=== PATIENT | male | born 1960 | race Two or more races ===

== ENCOUNTER 2016-05-14 22:41 | Inpatient (IN) | payer OTHER ==
[~2016-05-14] VITALS: Ht 180.3 cm; Wt 68.1 kg
[~2016-05-14 22:41] MED LIST: CHLO25CA9 PO; FOLI-49 PO; LIPA1CAP6 PO; METO10TA96 PO; MULTI PO; MYL80 PO; PANT40TA3 PO; THIA100T10 PO; TRAM50TA2 PO
[2016-05-15] MEDS ORDERED: ONDANSETRON 4 MG INJ IV STA (01:10)
[2016-05-15] MEDS ORDERED: SOD CHLORIDE 0.9% 500 ML IV STA (01:10)
[2016-05-15] MEDS ORDERED: morphine 4 MG/ML VIAL IV STA (01:10)
--- NOTE | 2016-05-15 01:35 | RADRPT ---
PROCEDURE: XR Chest. CLINICAL INDICATION: Abdominal pain. TECHNIQUE: Single frontal view of the chest was obtained COMPARISON: 04/24/2016. FINDINGS: The heart and mediastinum are within normal limits. The lungs are clear. There is no pleural effusion or pneumothorax. IMPRESSION: No acute disease. RPTAT: [facility] Physician Marlene Date Time Electronically viewed and signed by Aditi Chaudhary Physician on 05/15/2016 01:35 RS/
[2016-05-15 01:58] LABS: URINE BILIRUBIN (Dip) 1+ (NEGATIVE); URINE BLOOD (Dip) NEGATIVE (NEGATIVE); URINE COLOR YELLOW (YELLOW); URINE GLUCOSE (Dip) NEGATIVE (NEGATIVE); URINE KETONES (Dip) 15 (NEGATIVE); URINE LEUKOCYTE ESTERASE (Dip) NEGATIVE (NEGATIVE); URINE NITRITE (Dip) NEGATIVE (NEGATIVE); URINE UROBILINOGEN (Dip) 0.2 E.U./dL (0.1-1.0)
--- NOTE | 2016-05-15 02:11 | RADRPT ---
PROCEDURE: CT Abdomen and Pelvis without contrast. CLINICAL INDICATION: Abdominal pain TECHNIQUE: CT scan of the abdomen and pelvis without contrast was performed on a multidetector hig h-resolution CT scanner. The patient was scanned without intravenous contrast. No oral contrast was administered. Coronal and sagittal reformatted images were obtained from the axial source images. Im ages were reviewed on a high-resolution PACS workstation. The total exam CTDI equals 6.4 mGy and th e total exam DLP equals 396.32 mGy-cm. One or more of the following dose reduction techniques were used: - Automated exposure control. - Adjustment of the mA and/or kV according to patient size. - Use of iterative reconstruction technique. COMPARISON: 02/23/2013 FINDINGS: Lungs: Linear atelectasis/fibrosis is seen at the lung bases. Small amount of pericardial fluid. Liver: No abnormality seen. Gallbladder: No abnormality seen. Spleen: No abnormality seen. Stomach: There is distension of the stomach and first and second portions of the duodenum with flui d and air. There may be obstruction of the second portion of the duodenum. This has appeared since the previous study. Pancreas: There is dilatation of the pancreatic duct in the body of the pancreas with the maximal di ameter approximately 8 mm increased compared to previous study. There could be a mass in the head o f the pancreas. Adrenals: No abnormality seen. Kidneys: There is a 4 mm nonobstructing calculus in the lower right kidney appearing since previous study. No abnormality is seen in the left kidney. Abdominal aorta: Minimal calcification is seen in the abdominal aorta. No abdominal aortic aneurysm is seen. Lymph nodes: No definite enlarged lymph nodes are seen. Small bowel: No dilated small bowel loops are seen. Colon: Diverticula in sigmoid, descending, transverse and ascending colon. There is no specific romy dence of acute diverticulitis seen. Appendix: No abnormality seen. Bladder: No definite abnormality of the empty bladder is seen. Pelvic organs: No abnormality seen Ascites: None seen. Osseous structures: Mild degenerative changes at sacroiliac joints and hips. IMPRESSION: Dilatation of the pancreatic duct in the body of the pancreas with the maximal diameter approximatel y 8 mm increased compared to previous study. There could be a mass in the head of the pancreas. Dis tension of the stomach and first and second portions of the duodenum with fluid and air. There may be obstruction of the second portion of the duodenum. This has appeared since the previous study. 4 mm nonobstructing calculus in lower right kidney. Colonic diverticulosis. No specific evidence of acute diverticulitis seen. CT abdomen and pelvis with intravenous and oral contrast may be useful fo r further evaluation. A call report was made to <<Referring Physicians Name>> on <<DATETIME>>. RPTAT: HJES .Sb Hargrove MD, MD Date Time Electronically viewed and signed by .Sb Hargrove MD, MD on 05/15/2016 02:11 .S/
[2016-05-15] MEDS ORDERED: HYDROmorphONE 1 MG/ML SYG IV STA (02:17)
[2016-05-15 02:18] LABS: ADD UMIC NO; ICTOTEST NEGATIVE (NEGATIVE); URINE TOTAL PROTEIN (Dip) NEGATIVE (NEGATIVE)
[2016-05-15 02:41] LABS: BASOPHILS % 0.7 % (0.0-2.0); EOSINOPHILS % 0.1 % (0.0-7.0); HEMATOCRIT 40.5 % (42.0-52.0); HEMOGLOBIN 13.7 g/dl (14.0-18.0); LYMPHOCYTES # 0.7 10^3/ul (0.8-2.9); MEAN CORPUSCULAR HEMOGLOBIN 30.4 pg (29.0-33.0); MEAN CORPUSCULAR HGB CONC 33.8 g/dl (32.0-37.0); MEAN CORPUSCULAR VOLUME 89.7 fl (82.0-101.0); MEAN PLATELET VOLUME 7.9 fl (7.4-10.4); MONOCYTE # 0.4 10^3/ul (0.3-0.9); MONOCYTES % 6.4 % (0.0-11.0); NEUTROPHIL # 5.5 10^3/ul (1.6-7.5); NEUTROPHILS % 81.8 % (39.0-77.0); PLATELET COUNT 356 10^3/UL (140-440); RED BLOOD COUNT 4.51 10^6/ul (4.70-6.10); UNCORRECTED WBC 6.7 10^3/ul (4.8-10.8); WHITE BLOOD COUNT 6.7 10^3/ul (4.8-10.8)
[2016-05-15 02:44] LABS: CONDITION 1; LH ANALYZER COMMENTS 1
[2016-05-15 02:50] LABS: ALBUMIN 4.6 g/dl (3.3-4.9); CHLORIDE 96 mmol/L (97-110)
[2016-05-15 02:51] LABS: POTASSIUM 4.2 mmol/L (3.5-5.1); SODIUM 143 mmol/L (135-144)
[2016-05-15 02:53] LABS: ALBUMIN/GLOBULIN RATIO 1.17; ALKALINE PHOSPHATASE 102 IU/L (42-121); ANION GAP 21 (8-16); ASPARTATE AMINO TRANSFERASE 24 IU/L (15-46); BILIRUBIN,INDIRECT 0.3 mg/dl (0-1.1); BILIRUBIN,TOTAL 0.3 mg/dl (0.2-1.3); BLOOD UREA NITROGEN 9 mg/dl (7-20); CARBON DIOXIDE 30 mmol/L (21-31); CREATININE 1.37 mg/dl (0.61-1.24); TOTAL PROTEIN 8.5 g/dl (6.1-8.1)
[2016-05-15 02:54] LABS: ALANINE AMINOTRANSFERASE 18 IU/L (13-69); CALCIUM 9.9 mg/dl (8.4-10.2); GLUCOSE 132 mg/dl (70-220)
[2016-05-15 03:10] LABS: TROPONIN-I < 0.010 ng/ml (0.00-0.12)
[2016-05-15] MEDS ORDERED: HYDROmorphONE 1 MG/ML SYG IV ONE (03:43)
--- NOTE | 2016-05-15 03:45 | ERA ---
ER Documentation Chief Complaint Date/Time DATE: 05/15/16 TIME: 03:44 Chief Complaint LUQ abd pain x 5 days,N/V HPI This is a 55-year-old male comes in with a left upper quadrant epigastric abdominal pain for the past 5 days. Associated nausea vomiting. Pain is mild to moderate intensity. Patient has history of pancreatitis. Patient is a chronic alcoholic. ROS All systems reviewed and are negative except as per history of present illness. Medications Home Meds Active Scripts Chlordiazepoxide* (Chlordiazepoxide*) 25 Mg Capsule, 25 MG PO TID, #15 CAP Prov:SKYE HALL MD 04/27/16 Multivitamins* (Theragran*) 1 Tab Tab, 1 TAB PO DAILY, #30 TAB Prov:SKYE HALL MD 04/27/16 Thiamine* (Thiamine*) 100 Mg Tablet, 100 MG PO DAILY, #30 TAB Prov:SKYE HALL MD 04/27/16 Folic Acid* (Folic Acid*) 1 Mg Tablet, 1 MG PO DAILY, #30 TAB Prov:SKYE HALL MD 04/27/16 Tramadol HCl (Tramadol HCl) 50 Mg Tablet, 50 MG PO Q6H Y for PAIN, #30 TAB Prov:SKYE HALL MD 04/27/16 Simethicone* (Mylicon*) 80 Mg Tab, 80 MG PO Q8 Y for DISTENSION/GAS/BLOATING, # 30 TAB Prov:SKYE HALL MD 04/27/16 Reported Medications [id number]-Glxclpnx-Czgrjai* (Creon DR* 24,000) 24,000 L-76,000-120,000 Unit Capsule., 1 CAP PO WITH MEALS, CAP 04/24/16 Metoclopramide Hcl* (Metoclopramide Hcl*) 10 Mg Tablet, 10 MG PO TID Y for NAUSEA AND/OR VOMITING, TAB 04/24/16 Pantoprazole* (Protonix*) 40 Mg Tablet.dr, 40 MG PO DAILY, TAB 03/12/15 Allergies Allergies: Coded Allergies: No Known Allergy (Unverified , 04/25/16) PMhx/Soc History of Surgery: No Anesthesia Reaction: No Hx Neurological Disorder: No Hx Respiratory Disorders: No Hx Cardiac Disorders: No Hx Psychiatric Problems: Yes (anxiety,anorexia,panic attack) Hx Miscellaneous Medical Probl: Yes (pancreatitis) Hx Alcohol Use: Yes Hx Substance Use: No Hx Tobacco Use: No Smoking Status: Never smoker Physical Exam Vitals Vital Signs Date Time Temp Pulse Resp B/P Pulse Ox O2 Delivery O2 Flow Rate FiO2 05/15/16 01:30 110 16 153/100 98 Room Air 05/14/16 22:48 98.7 116 20 130/98 99 Physical Exam Const: [] Head: Atraumatic Eyes: Normal Conjunctiva ENT: Normal External Ears, Nose and Mouth. Neck: Full range of motion..~ No meningismus. Resp: Clear to auscultation bilaterally Cardio: Regular rate and rhythm, no murmurs Abd: Soft, non tender, non distended. Normal bowel sounds Skin: No petechiae or rashes Back: No midline or flank tenderness Ext: No cyanosis, or edema Neur: Awake and alert Psych: Normal Mood and Affect Result Diagram: 05/15/1622505/15/16225 Results 24 hrs Laboratory Tests Test 05/15/16 01:17 05/15/16 02:26 Urine Bilirubin 1+ Urine Clarity CLEAR Urine Color YELLOW Urine Glucose NEGATIVE% Urine Hemoglobin NEGATIVE Urine Ictotest NEGATIVE Urine Ketones 15 Urine Leukocyte Esterase NEGATIVE Urine Nitrite NEGATIVE Urine Specific [place] 1.025 Urine Total Protein NEGATIVE Urine Urobilinogen 0.2 E.U./dL Urine pH 5.5 Alanine Aminotransferase (ALT/SGPT) 18IU/L Albumin 4.6g/dl Albumin/Globulin Ratio 1.17 Alkaline Phosphatase 102IU/L Anion Gap 21 Aspartate Amino Transf (AST/SGOT) 24IU/L Basophils # 0.010^3/ul Basophils % 0.7% Blood Morphology Comment Blood Urea Nitrogen 9mg/dl Calcium Level 9.9mg/dl Carbon Dioxide Level 30mmol/L Chloride Level 96mmol/L Creatinine 1.37mg/dl Direct Bilirubin 0.00mg/dl Eosinophils # 0.010^3/ul Eosinophils % 0.1% Globulin 3.90g/dl Glucose Level 132mg/dl Hematocrit 40.5% Hemoglobin 13.7g/dl Indirect Bilirubin 0.3mg/dl Lipase 126U/L Lymphocytes # 0.710^3/ul Lymphocytes % 11.0% Mean Corpuscular Hemoglobin 30.4pg Mean Corpuscular Hemoglobin Concent 33.8g/dl Mean Corpuscular Volume 89.7fl Mean Platelet Volume 7.9fl Monocytes # 0.410^3/ul Monocytes % 6.4% Neutrophils # 5.510^3/ul Neutrophils % 81.8% Nucleated Red Blood Cells # 0.010^3/ul Nucleated Red Blood Cells % 0.0/100WBC Platelet Count 24166^3/UL Potassium Level 4.2mmol/L Red Blood Count 4.5110^6/ul Red Cell Distribution Width 16.0% Sodium Level 143mmol/L Total Bilirubin 0.3mg/dl Total Protein 8.5g/dl Troponin I < 0.010ng/ml White Blood Count 6.710^3/ul Current Medications Medications (Trade) Dose Ordered Sig/Broderick Route PRN Reason Start Time Stop Time Status Last Admin Dose Admin Sodium Chloride (NS) 500 ml @ 500 mls/hr Q1H STAT IV 05/15/16 01:10 05/15/16 02:09 DC 05/15/16 01:57 Morphine Sulfate (morphine) 4 mg ONCE STAT IV 05/15/16 01:10 05/15/16 01:11 DC Ondansetron HCl (Zofran Inj) 4 mg ONCE STAT IV 05/15/16 01:10 05/15/16 01:11 DC 05/15/16 01:57 Hydromorphone HCl (Dilaudid) 1 mg ONCE STAT IV 05/15/16 02:17 05/15/16 02:18 DC 05/15/16 02:24 Hydromorphone HCl (Dilaudid) 1 mg ONCE ONCE IV 05/15/16 03:43 05/15/16 03:44 Procedures/MDM Medical decision-makin-year-old gentleman with acute on chronic pancreatitis. He also has a suspicious mass suspicious for pancreatic head mass. Patient will be admitted to Dr. Gary ballard as he has admitted the patient previously. Departure Diagnosis: Primary Impression: Pancreatitis Qualified Code: K85.20 - Alcohol-induced acute pancreatitis without infection or necrosis Additional Impression: Abdominal pain Qualified Code: R10.13 - Epigastric pain Condition: Serious RACHEL ANGELES May 15, 2016 03:45
[2016-05-15 05:10] VITALS: Ht 180.3 cm; Wt 68.1 kg
[2016-05-15] MEDS ORDERED: LORA-444 PO (05:23)
[2016-05-15] MEDS: ONDANSETRON 4 MG INJ IV PRN ×2 (06:51→15:27)
[2016-05-15] MEDS: HYDROmorphONE 1 MG/ML SYG IV PRN ×6 (06:52→23:00)
[2016-05-15 08:08] VITALS: BP 148/89; RESP 16
[2016-05-15] MEDS: PANTOPRAZOLE 40 MG INJ IV SCH (09:14)
[2016-05-15] MEDS: D5W-0.45 NACL + KCL 20 MEQ 1,000 ML IV SCH ×3 (09:14→18:45)
[2016-05-15] MEDS: LORAZEPAM 2 MG INJ IV PRN ×2 (11:36→18:45)
--- NOTE | 2016-05-15 13:46 | HP ---
DATE OF ADMISSION: 05/15/2016 CHIEF COMPLAINT: Epigastric pain for last 5 days, nausea and vomiting. HISTORY OF PRESENT ILLNESS: The patient is a 55-year-old gentleman. The patient with a past medic al history of pancreatitis, alcohol dependence, anxiety, anorexia and panic attacks. The patient de veloped epigastric abdominal pain that radiates to the left and right lower abdominal quadrants and in the back associated with nausea and vomiting. The patient stated that his last alcoholic beverag e drink was during New Year. Patient stated he tries to quit drinking "as much as he can." The prashanth howard presented to the emergency room. The patient underwent a CT of the abdomen and pelvis. The ash torres was diagnosed with pancreatitis. The patient was given Zofran and Dilaudid in the emergency room and admitted for further evaluation and management. PAST MEDICAL HISTORY: Per HPI. PAST SURGICAL HISTORY: Patient denies having any surgeries. SOCIAL HISTORY: Patient denies any tobacco use, denies any illicit drugs. The patient takes alcohol occasionally, usually drinks wine. FAMILY HISTORY: Noncontributory. ALLERGIES: NO KNOWN ALLERGIES. MEDICATIONS ON ADMISSION: 1. Creon DR. 2. Folic acid. 3. Ativan. 4. Multivitamins. 5. Protonix. 6. Tramadol. 7. Thiamin. REVIEW OF SYSTEMS: A 12-point review of systems is negative unless what mentioned in the HPI. PHYSICAL EXAMINATION: GENERAL: Well-developed, well-nourished male in no acute distress. VITAL SIGNS: Temperature is 98.7, pulse is 91, blood pressure 148/89, respiratory rate 16, oxygen s aturation 96% on room air. HEENT: Head is atraumatic, normocephalic. Pupils equal, round and reactive to light and accommodat ion. Oral mucosa is pink and moist. NECK: Supple, no cervical lymphadenopathy, no thyromegaly. CHEST: Lungs clear to auscultation bilaterally. No rhonchi, wheezes, rales noted. CARDIOVASCULAR: Normal S1, S2. No murmurs, gallops, clicks noted. ABDOMEN: Round, soft, nondistended. Patient has epigastric tenderness. Bowel sounds present. The re is no guarding. EXTREMITIES: No edema, clubbing or cyanosis. Pulses equal bilaterally 2+. SKIN: There is no rash, petechiae noted. NEUROLOGIC: Patient is alert and oriented x4. No focal deficits noted. LABORATORY DATA: On admission CBC: White blood cells 6.7, hemoglobin 13.7, hematocrit 40.5, platel ets 356. Chemistry: Sodium is 143, potassium 4.2, chloride 96, carbon dioxide 30, anion gap 21, BU N is 9, creatinine 1.37, glucose 132. AST is 24, ALT 18, alkaline phosphatase is 102. Troponin les s than 0.01. Lipase is 126. IMAGING: CT of the abdomen and pelvis with dilatation of the pancreatic duct in the body of the samuel creas with maximal diameter approximately 8 mm, increased compared to previous study. ASSESSMENT AND PLAN: 1. Acute alcoholic-induced acute pancreatitis. 2. Possible mass in the head of the pancreas. 3. Alcohol dependence. I started the patient on IV fluids with folic acid, thiamine and multivitami ns. Continue Zofran p.r.n. for nausea and Dilaudid p.r.n. for pain, keep patient n.p.o., will ask Lucina Scott to see patient in gastroenterology consultation. Continue Protonix for peptic ulcer disea se prophylaxis and sequential compression device for deep venous thrombosis prophylaxis. Further re commendations based on clinical course. Plan of care discussed with Dr. Tinsley. Dictated By: LEON TERRY BACKSIDE GRINDER for SNEHA TINSLEY MD SR/NTS Conf#: [id number] DID#: [id number]
[2016-05-15] MEDS: DIPHENHYDRAMINE 50 MG INJ IV PRN ×2 (16:22→23:27)
--- NOTE | 2016-05-15 18:44 | CONS ---
DATE OF ADMISSION: 05/15/2016 DATE OF CONSULTATION: 05/15/2016 TYPE OF CONSULTATION: Gastroenterology. Dear Dr. Lee: Thank you for asking me to see Mr. Wilson in GI consultation. HISTORY OF PRESENT ILLNESS: The patient, as you know, is admitted to the hospital because of the hi story of abdominal pain and periodic vomiting. He is 55 years of age of [place] origin. He develope d epigastric pain radiating to the left upper quadrant and to the back, periodic vomiting, as he has vomited 6 times in the past 1 month. He is known to have chronic pancreatitis; however, since this admission, he was found to have a significantly dilated stomach, possible mass in the head of the p ancreas. There is evidence of a dilated pancreatic duct. He has a history of alcoholism. He was i n and out of the hospital several times. Two months ago he was in [facility] where he had an endoscopy. He does not know the details. He said that cancer was ruled out. He has no history of vomiting blood or passing blood from the rectum. MEDICATIONS: Prior to the admission include: 1. Creon. 2. Folic acid. 3. Ativan. 4. Multivitamins. 5. Protonix. 6. Tramadol. 7. Thiamine. PAST SURGICAL HISTORY: Unremarkable. PHYSICAL EXAMINATION: GENERAL: The patient is a 55-year-old [place] gentleman who at this time is alert, is well built. VITAL SIGNS: Afebrile, blood pressure 148/89. CARDIOVASCULAR: Normal heart sounds. RESPIRATORY: Normal breath sounds. ABDOMEN: Showed a mildly distended abdomen, tympanic to percussion noted in the upper abdomen. LABORATORY WORKUP: Potassium 4.2, BUN 9, creatinine 1.37, bilirubin 0.3, AST 24, ALT 18, alkaline p hosphatase 102, lipase is 126. WBC 6700, hemoglobin 13.7, platelets 356,000. CAT scan of the abdom en shows evidence of dilatation of the dilated stomach and first and second part of the duodenum als o dilated, ____ obstruction of the second portion of the duodenum, dilatation of the pancreatic fabrice t is reported up to 8 mm. Mass in the head of the pancreas is considered. Please review the chart for more information. CLINICAL IMPRESSION: The patient presenting with history of abdominal pain and vomiting. He has ev idence of a gastric outlet obstruction. Rule out pancreatitis causing the gastric outlet obstruction near the second part of the duodenum; n eoplastic process in the head of the pancreas cannot be ruled out. Bilirubin and liver functions ar e normal. Hence, mass in the head of the pancreas is probably less likely. He has a dilated pancre atic duct, probably based on chronic pancreatitis. Mass and malignancy of the pancreatic head shoul d be ruled out. PLAN: At this time, recommend nasogastric suction, CA 19-9, and surgical consultation is pending, w ill be happy to follow this patient along with you. Once again, doctor, thank you for this consultation. Dictated By: CHARLEY GUILLEN MD NC/NTS Conf#: [id number] DID#: [id number] CC: SNEHA LEE MD;*EndCC*
[2016-05-15 19:59] VITALS: BP 141/88; RESP 16
[2016-05-16] MEDS: LORAZEPAM 2 MG INJ IV PRN ×4 (01:09→21:24)
[2016-05-16] MEDS: HYDROmorphONE 1 MG/ML SYG IV PRN ×4 (02:01→11:49)
[2016-05-16] MEDS: D5W-0.45 NACL + KCL 20 MEQ 1,000 ML IV SCH ×5 (02:05→22:00)
[2016-05-16] MEDS: PANTOPRAZOLE 40 MG INJ IV SCH (05:00)
[2016-05-16 05:56] LABS: BASOPHILS % 0.3 % (0.0-2.0); EOSINOPHILS # 0.2 10^3/ul (0.0-0.5); EOSINOPHILS % 3.5 % (0.0-7.0); HEMATOCRIT 38.7 % (42.0-52.0); HEMOGLOBIN 13.1 g/dl (14.0-18.0); LYMPHOCYTES # 1.8 10^3/ul (0.8-2.9); MEAN CORPUSCULAR HEMOGLOBIN 30.6 pg (29.0-33.0); MEAN CORPUSCULAR HGB CONC 33.9 g/dl (32.0-37.0); MEAN CORPUSCULAR VOLUME 90.3 fl (82.0-101.0); MEAN PLATELET VOLUME 8.3 fl (7.4-10.4); MONOCYTE # 0.7 10^3/ul (0.3-0.9); MONOCYTES % 11.9 % (0.0-11.0); NEUTROPHIL # 2.8 10^3/ul (1.6-7.5); NEUTROPHILS % 51.3 % (39.0-77.0); PLATELET COUNT 295 10^3/UL (140-440); RED BLOOD COUNT 4.29 10^6/ul (4.70-6.10); RED CELL DISTRIBUTION WIDTH 15.8 % (11.5-14.5); UNCORRECTED WBC 5.6 10^3/ul (4.8-10.8); WHITE BLOOD COUNT 5.6 10^3/ul (4.8-10.8)
[2016-05-16 06:07] LABS: CONDITION 1; LH ANALYZER COMMENTS 1
[2016-05-16 06:37] LABS: ALBUMIN 4.1 g/dl (3.3-4.9)
[2016-05-16 06:38] LABS: POTASSIUM 4.4 mmol/L (3.5-5.1)
[2016-05-16 06:40] LABS: ALBUMIN/GLOBULIN RATIO 1.13; BILIRUBIN,INDIRECT 0.4 mg/dl (0-1.1); BILIRUBIN,TOTAL 0.4 mg/dl (0.2-1.3); CREATININE 0.91 mg/dl (0.61-1.24); TOTAL PROTEIN 7.7 g/dl (6.1-8.1)
[2016-05-16 06:41] LABS: CALCIUM 9.1 mg/dl (8.4-10.2)
[2016-05-16] MEDS: DIPHENHYDRAMINE 50 MG INJ IV PRN ×2 (07:36→21:32)
[2016-05-16 07:51] VITALS: BP 112/81; RESP 16
[2016-05-16 07:57] VITALS: BP 108/55; RESP 16
[2016-05-16 07:59] VITALS: BP 112/81; RESP 16
[2016-05-16] MEDS: MULTIVITAMINS 10 ML, THIAMINE 100 MG, FOLIC ACID 1 MG in SOD CHLORIDE 0.9% 1,000 ML IVPB SCH (09:35)
[2016-05-16] MEDS ORDERED: HYDROmorphONE 1 MG/ML SYG IV STA (13:25)
[2016-05-16] MEDS: HYDROmorphONE 2 MG/ML SYG IV PRN ×3 (16:58→23:19)
--- NOTE | 2016-05-16 17:32 | CONS ---
Date/Time of Note Date/Time of Note DATE: 05/16/16 TIME: 17:31 Assessment/Plan Assessment/Plan Additional Assessment/Plan [facility] INITIAL INPATIENT CONSULTATION NOTE ASSESSMENT AND PLAN: A very-pleasant 55-year-old gentleman with significant history of pancreatitis due to alcohol abuse, and a few other medical issues ( see below) who was admitted initially to [facility] 05/15/2016 with evidence of chronic pancreatitis with complications of gastric outlet obstruction and pancreatic duct obstruction. Chance of malignancy is still low but should be investigated. Patient should have an upper endoscopy and may need endoscopic ultrasound evaluation to complete his workup. I do not see an indication for acute surgical intervention, but the patient should stay within care of his primary care physicians, gastroenterology as well as B surgery both in-house and as an outpatient until we have more definitive alleviation of his symptoms. At times, surgical intervention is indicated in the form of bypass operations or even resections. Infrequently, total pancreatectomy with auto islet transplantation would be considered, but I do not think that the patient would need such aggressive intervention at this time. I expect all of this to the patient and answered all his questions to the best my ability. Patient appeared to understand and agreed with the plans. With above assessment, I've recommended the followin. Consider upper endoscopy 2. Possible arrangement for outpatient endoscopic ultrasound 3. Treat pain 4. Continue NG decompression 5. Further plans after endoscopy Thank you very much for having me involved in the care of this very pleasant gentleman and I'm certain his wonderful family. I will continue to follow him along with you closely and will be available to answer any questions at area code [phone]. TOTAL VISIT TIME: 45 minutes of which more than half was spent in [id number] discussion with the patient, as well as coordination of care between multiple physicians and providers. Disclaimer: Inadvertent spelling and grammatical errors are likely due to EHR/ dictation software use and do not reflect on the quality of delivered patient care. Also, please note that the electronic time recorded on this node does not necessarily reflect the actual time of the visit. PLACE OF SERVICE: [facility], sixth floor DATE OF CONSULTATION: 05/16/2016 HISTORY OF PRESENT ILLNESS: The patient is a very pleasant 55-year-old gentleman with significant history of pancreatitis due to alcohol abuse, and a few other medical issues (see below) who was admitted initially to [facility] 05/15/2016 with abdominal pain that radiated to left and right lower abdominal quadrants and to the back, associated with nausea and vomiting. These are similar to his previous episodes of abdominal pain associated with pancreatitis. Note that the amylase and lipase levels were normal. CT scan shows dilated pancreatic duct as well as a mass process in the head of the pancreas and evidence for gastric outlet obstruction. Rest of the labs are unremarkable. I was kindly asked consult. Patient had no other major complaints during my visit. Patient does not report any hematemesis or blood in the stool or urine. Last bowel movement was yesterday as well as flatus. No reported chronic issues with constipation or diarrhea. No changes in hearing or vision, difficulty with breathing or swallowing, prior cardiopulmonary disease new skin rashes, joint pain, musculoskeletal disease, neurologic, psychiatric, or new psychologic problems although he has anxiety. Patient described the pain as a diffuse mid and upper epigastric pain with radiation to the back, between 8 to 10 out of 10 in severity and mostly dull in character. At my visit, the patient did not have any significant pain complaints. PAST MEDICAL HISTORY 1. EtOH pancreatitis with several visits to healthcare centers per year 2. Chronic back pain 3. Anxiety neck slight 4. Panic attacks 5. Gastritis PAST SURGICAL HISTORY 1. Previous endoscopies ALLERGIES: NO KNOWN DRUG ALLERGIES MEDICATIONS 1. Stephanie CULVER 2. Folic acid. 3. Ativan. 4. Multivitamins. 5. Protonix. 6. Tramadol. 7. Thiamin. SOCIAL HISTORY: The patient lives by himself. - Tob; occasional ETOH with previous heavy use 20 years ago; - IVDU FAMILY HISTORY: There are no significant medical, surgical or oncologic issues in the family as reported by the patient or reflected in the chart. REVIEW OF SYSTEMS: Patient takes codeine based pain medications once or twice a week. He does not have a pain specialist managing his pain as an outpatient. No other pertinent positives or pertinent negatives in a complete 14 point review of systems. PHYSICAL EXAMINATION GENERAL: The patient appears to be a very pleasant gentleman of non- ( [place]) descent lying in bed, appearing stated age, and otherwise in no acute distress. BMI: 20.9 VITAL SIGNS: AVSS (please also see below) HEENT: Normocephalic and atraumatic. Extraocular muscles and hearing are grossly intact bilaterally and symmetrically. Sclerae are nonicteric. Oral cavity is clear; oral mucosa appear to be pink and moist. Dentition: fair. NECK: Supple. There is no lymphadenopathy or JVD. There is no submental, submandibular or supraclavicular lymphadenopathy. CHEST: Rises symmetrically with each breath; patient is breathing comfortably. There are no audible wheezes, rales or rhonchi on the gross exam. HEART: Pulse is regular and palpable on the right wrist. Capillary refill is normal. Carotid pulses are palpable bilaterally and symmetrically in the neck. EXTREMITIES: Lower extremities contain no pitting edema around the ankles bilaterally and symmetrically. ABDOMEN: Abdomen is soft, nontender and nondistended. No evidence of ascites, organomegaly, caput medusae, engorged subcutaneous veins, or other abnormalities. There are no peritoneal signs or guarding. SKIN: Appears to be pink and feels warm to touch. NEUROLOGIC: Awake, alert, and follows commands appropriately. LABORATORY DATA: See below IMAGING: See electronic chart. Please note that I've personally reviewed all pertinent available images and I agree in general with their overall reported findings. Consultation Date/Type/Reason Admit Date/Time May 15, 2016 at 03:34 Social History Smoking Status: Never smoker Exam/Review of Systems Vital Signs Vitals Vital Signs Date Time Temp Pulse Resp B/P Pulse Ox O2 Delivery O2 Flow Rate FiO2 05/16/16 07:59 98.1 83 16 112/81 96 05/15/16 04:00 Room Air Intake and Output 05/15/16 05/15/16 05/16/16 15:00 23:00 07:00 Intake Total 1000 ml 1250 ml Output Total 1600 ml 1200 ml Balance -600 ml 50 ml Results Result Diagram: 05/16/16 0518 05/16/16 0528 Results 24 hrs Laboratory Tests Test 05/16/16 05:18 05/16/16 05:28 Basophils # 0.0 Basophils % 0.3 Blood Morphology Comment Eosinophils # 0.2 Eosinophils % 3.5 Hematocrit 38.7 L Hemoglobin 13.1 L Lymphocytes # 1.8 Lymphocytes % 33.0 Mean Corpuscular Hemoglobin 30.6 Mean Corpuscular Hemoglobin Concent 33.9 Mean Corpuscular Volume 90.3 Mean Platelet Volume 8.3 Monocytes # 0.7 Monocytes % 11.9 H Neutrophils # 2.8 Neutrophils % 51.3 Nucleated Red Blood Cells # 0.0 Nucleated Red Blood Cells % 0.0 Platelet Count 295 Red Blood Count 4.29 L Red Cell Distribution Width 15.8 H White Blood Count 5.6 Alanine Aminotransferase (ALT/SGPT) 23 Albumin 4.1 Albumin/Globulin Ratio 1.13 Alkaline Phosphatase 76 Amylase Level 121 Anion Gap 17 H Aspartate Amino Transf (AST/SGOT) 30 Blood Urea Nitrogen 7 Calcium Level 9.1 Carbon Dioxide Level 32 H Chloride Level 100 Creatinine 0.91 Direct Bilirubin 0.00 Globulin 3.60 H Glucose Level 112 Indirect Bilirubin 0.4 Lipase 126 Potassium Level 4.4 Sodium Level 145 H Total Bilirubin 0.4 Total Protein 7.7 Medications Medications Current Medications Influenza Virus Vaccine 0.5 ml 0.5 ml ONCE ONCE IM* ; Start 05/17/16 at 09:00; Stop 05/17/16 at 09:01 Potassium Chloride/Dextrose/ Sod Cl (D5-1/2ns + KCl 20 Meq) 1,000 ml @ 125 mls/ hr Q8H IV Last administered on 05/16/16 02:05; Admin Dose 125 MLS/HR; Start at 06:00 Pantoprazole (Protonix Iv) 40 mg DAILY@06 IV Last administered on 05/16/16 05: 00; Admin Dose 40 MG; Start 05/15/16 at 06:00 Lorazepam (Ativan) 1 mg Q6H PRN IV ANXIETY Last administered on 05/16/16 15:21 ; Admin Dose 1 MG; Start 05/15/16 at 06:00 Ondansetron HCl (Zofran Inj) 4 mg Q6H PRN IV NAUSEA AND/OR VOMITING Last administered on 05/15/16 15:27; Admin Dose 4 MG; Start 05/15/16 at 06:00 Diphenhydramine HCl 25 mg 25 mg Q6H PRN IV NAUSEA AND/OR VOMITING Last administered on 05/16/16 07:36; Admin Dose 25 MG; Start 05/15/16 at 13:00 Multivitamins/ Thiamine HCl/ Folic Acid/Sodium Chloride (Mvi-12 Adult/ Vitamin B1/Folic Acid/NS) 1,011.2 ml @ 125 mls/ hr DAILY@09 IVPB Last administered on 05/16/16 09:35; Admin Dose 125 MLS/HR; Start 05/16/16 at 09:00 Hydromorphone HCl (Dilaudid) 1.5 mg Q3H PRN IV PAIN Last administered on 16:58; Admin Dose 1.5 MG; Start 05/16/16 at 15:00 MAGDALENO KANG M.D. May 16, 2016 17:31
[2016-05-16 19:00] VITALS: BP 105/72; RESP 18
--- NOTE | 2016-05-16 20:54 | CONS ---
DATE OF ADMISSION: 05/15/2016 DATE OF CONSULTATION: HISTORY OF PRESENT ILLNESS: The patient, since I saw him last night, he had a nasogastric tube put in. It drained 3.5 liters of gastric fluid. He says he is feeling better, no more vomiting, abdomi nal pain is much better. PHYSICAL EXAMINATION: GENERAL: The patient is a 55-year-old [place] gentleman who at this time appears to be alert. VITAL SIGNS: Afebrile, pulse is 90, blood pressure 110/80. CARDIOVASCULAR: Normal heart sounds. RESPIRATORY: Normal breath sounds. ABDOMEN: Showed less distention, less tenderness. LABORATORY WORKUP: WBC 5600, hemoglobin 13.1, BUN 7, creatinine is 0.9, amylase 121, lipase is 126. CA 19-9 is 3.2. CLINICAL IMPRESSION: The patient seems to have improved after the gastric decompression. The reaso n for gastric outlet obstruction is not clear, rule out ulcer disease, rule out pancreatic phlegmon causing obstruction. PLAN: At this time, will proceed with upper endoscopy. Also, recommend Reglan. Dictated By: CHARLEY NARAYANAN/EDIL Conf#: [id number] DID#: [id number] CC: SNEHA TINSLEY MD;*EndCC*
--- NOTE | 2016-05-16 21:50 | PN ---
Date/Time of Note Date/Time of Note DATE: 05/16/16 TIME: 21:45 Assessment/Plan VTE Prophylaxis VTE Prophylaxis Intervention: SCD's Lines/Catheters IV Catheter Type (from Nrsg): Peripheral IV Assessment/Plan Assessment/Plan 1. Acute alcoholic-induced acute pancreatitis. - per GI - npo - NGT to low intermittent suction- draining green fluid. - IVF - Zofran p.r.n. for nausea -plan for endoscopy tomorrow 2. Possible mass in the head of the pancreas. - pain management- dilaudid 1.5 mg q 3 hrs 3. Alcohol dependence. IV fluids with folic acid, thiamine and multivitamins. Continue Protonix for peptic ulcer disease prophylaxis and sequential compression device for deep venous thrombosis prophylaxis. Further recommendations based on clinical course. Plan of care discussed with Dr. Lee. Exam/Review of Systems Vital Signs Vitals Vital Signs Date Time Temp Pulse Resp B/P Pulse Ox O2 Delivery O2 Flow Rate FiO2 05/16/16 19:00 97.8 87 18 105/72 96 05/15/16 04:00 Room Air Intake and Output 05/15/16 05/15/16 05/16/16 15:00 23:00 07:00 Intake Total 1000 ml 1250 ml Output Total 1600 ml 1200 ml Balance -600 ml 50 ml Exam Constitutional: alert, oriented, other Psych: nl mood/affect Eyes: EOMI, PERRL, nl sclera ENMT: nl external ears & nose Neck: non-tender Respiratory: clear to auscultation Cardiovascular: nl pulses Gastrointestinal: soft, tender Musculoskeletal: nl extremities to inspection Extremities: normal pulses Neurological: nl mental status, nl speech Skin: nl turgor Lymph: nontender Results Result Diagram: 05/16/1618 05/16/16 0528 Results 24 hrs Laboratory Tests Test 05/16/16 05:18 05/16/16 05:28 Basophils # 0.0 Basophils % 0.3 Blood Morphology Comment Eosinophils # 0.2 Eosinophils % 3.5 Hematocrit 38.7 L Hemoglobin 13.1 L Lymphocytes # 1.8 Lymphocytes % 33.0 Mean Corpuscular Hemoglobin 30.6 Mean Corpuscular Hemoglobin Concent 33.9 Mean Corpuscular Volume 90.3 Mean Platelet Volume 8.3 Monocytes # 0.7 Monocytes % 11.9 H Neutrophils # 2.8 Neutrophils % 51.3 Nucleated Red Blood Cells # 0.0 Nucleated Red Blood Cells % 0.0 Platelet Count 295 Red Blood Count 4.29 L Red Cell Distribution Width 15.8 H White Blood Count 5.6 Alanine Aminotransferase (ALT/SGPT) 23 Albumin 4.1 Albumin/Globulin Ratio 1.13 Alkaline Phosphatase 76 Amylase Level 121 Anion Gap 17 H Aspartate Amino Transf (AST/SGOT) 30 Blood Urea Nitrogen 7 Calcium Level 9.1 Carbon Dioxide Level 32 H Chloride Level 100 Creatinine 0.91 Direct Bilirubin 0.00 Globulin 3.60 H Glucose Level 112 Indirect Bilirubin 0.4 Lipase 126 Potassium Level 4.4 Sodium Level 145 H Total Bilirubin 0.4 Total Protein 7.7 Medications Medications Current Medications Influenza Virus Vaccine 0.5 ml 0.5 ml ONCE ONCE IM* ; Start 05/17/16 at 09:00; Stop 05/17/16 at 09:01 Potassium Chloride/Dextrose/ Sod Cl (D5-1/2ns + KCl 20 Meq) 1,000 ml @ 125 mls/ hr Q8H IV Last administered on 05/16/16 19:58; Admin Dose 125 MLS/HR; Start at 06:00 Pantoprazole (Protonix Iv) 40 mg DAILY@06 IV Last administered on 05/16/16 05: 00; Admin Dose 40 MG; Start 05/15/16 at 06:00 Lorazepam (Ativan) 1 mg Q6H PRN IV ANXIETY Last administered on 05/16/16 21:24 ; Admin Dose 1 MG; Start 05/15/16 at 06:00 Ondansetron HCl (Zofran Inj) 4 mg Q6H PRN IV NAUSEA AND/OR VOMITING Last administered on 05/15/16 15:27; Admin Dose 4 MG; Start 05/15/16 at 06:00 Diphenhydramine HCl 25 mg 25 mg Q6H PRN IV NAUSEA AND/OR VOMITING Last administered on 05/16/16 21:32; Admin Dose 25 MG; Start 05/15/16 at 13:00 Multivitamins/ Thiamine HCl/ Folic Acid/Sodium Chloride (Mvi-12 Adult/ Vitamin B1/Folic Acid/NS) 1,011.2 ml @ 125 mls/ hr DAILY@09 IVPB Last administered on 05/16/16 09:35; Admin Dose 125 MLS/HR; Start 05/16/16 at 09:00 Hydromorphone HCl (Dilaudid) 1.5 mg Q3H PRN IV PAIN Last administered on t 19:59; Admin Dose 1.5 MG; Start 05/16/16 at 15:00 Metoclopramide HCl (Reglan) 10 mg Q6 IV ; Start 05/17/16 at 00:00 SO VILLARREAL May 16, 2016 21:50
[2016-05-16] MEDS: METOCLOPRAMIDE 10 MG INJ IV SCH (23:19)
--- NOTE | 2016-05-17 00:24 | RADRPT ---
PROCEDURE: XR abdomen series. CLINICAL INDICATION: obstructed stomach TECHNIQUE: AP supine and upright abdomen x-ray. AP chest x-ray COMPARISON: CT abdomen 05/15/2016 FINDINGS: There is moderate stool through the colon. Dilated small bowel loops are not identified. There is a nasogastric tube projecting in the gastric body. There is no evidence of obstruction. There are n o abnormal calcifications overlying the urinary tracts. There is no gross abnormal soft tissue mass. The osseus structures are unremarkable. The cardiomediastinal silhouette appears within normal limits. Lung putnam appear clear. Pulmonary vasculature appears within normal limits. IMPRESSION: 1. Moderate stool through the colon. 2. No evidence for small bowel obstruction. Fluid-filled distension of the stomach seen on CT may b e decreased on the current x-ray, although not well evaluated. 3. Nasogastric tube in place. RPTAT: HBST .Yohannes Bruce MD, MD Date Time Electronically viewed and signed by .Yohannes Bruce MD, on 05/17/2016 00:23 .T/
[2016-05-17] MEDS: HYDROmorphONE 2 MG/ML SYG IV PRN ×7 (02:06→22:05)
[2016-05-17] MEDS: LORAZEPAM 2 MG INJ IV PRN ×3 (03:52→17:55)
[2016-05-17] MEDS: DIPHENHYDRAMINE 50 MG INJ IV PRN ×2 (03:56→21:01)
[2016-05-17] MEDS: METOCLOPRAMIDE 10 MG INJ IV SCH ×3 (05:03→17:51)
[2016-05-17] MEDS: PANTOPRAZOLE 40 MG INJ IV SCH ×2 (05:03→20:24)
[2016-05-17] MEDS: D5W-0.45 NACL + KCL 20 MEQ 1,000 ML IV SCH ×3 (06:00→20:23)
[2016-05-17 06:04] LABS: BASOPHILS % 0.5 % (0.0-2.0); EOSINOPHILS # 0.3 10^3/ul (0.0-0.5); EOSINOPHILS % 4.9 % (0.0-7.0); HEMATOCRIT 35.1 % (42.0-52.0); LYMPHOCYTES # 1.7 10^3/ul (0.8-2.9); LYMPHOCYTES % 27.9 % (15.0-51.0); MEAN CORPUSCULAR HGB CONC 34.3 g/dl (32.0-37.0); MEAN CORPUSCULAR VOLUME 90.2 fl (82.0-101.0); MEAN PLATELET VOLUME 8.2 fl (7.4-10.4); MONOCYTE # 0.7 10^3/ul (0.3-0.9); MONOCYTES % 10.9 % (0.0-11.0); NEUTROPHIL # 3.4 10^3/ul (1.6-7.5); NEUTROPHILS % 55.8 % (39.0-77.0); PLATELET COUNT 249 10^3/UL (140-440); RED BLOOD COUNT 3.89 10^6/ul (4.70-6.10); RED CELL DISTRIBUTION WIDTH 15.6 % (11.5-14.5); UNCORRECTED WBC 6.1 10^3/ul (4.8-10.8); WHITE BLOOD COUNT 6.1 10^3/ul (4.8-10.8)
[2016-05-17 06:21] LABS: CONDITION 1; LH ANALYZER COMMENTS 1
[2016-05-17 06:35] LABS: POTASSIUM 4.4 mmol/L (3.5-5.1)
[2016-05-17 06:38] LABS: CREATININE 0.89 mg/dl (0.61-1.24)
[2016-05-17 08:00] VITALS: BP 155/97; RESP 18
[2016-05-17] MEDS: MULTIVITAMINS 10 ML, THIAMINE 100 MG, FOLIC ACID 1 MG in SOD CHLORIDE 0.9% 1,000 ML IVPB SCH (08:01)
[2016-05-17] MEDS ORDERED: INFLUENZA VIRUS VACCINE 0.5 ML SYG IM* ONE (09:00)
[2016-05-17] MEDS ORDERED: LIDOCAINE 2% (SDV) 5 ML INJ ONE (10:29)
[2016-05-17] MEDS ORDERED: PROPOFOL 20 ML ONE (10:29)
[2016-05-17] MEDS ORDERED: FENTAnyl 50 MCG/ML VIAL ONE (10:42)
[2016-05-17 10:43] VITALS: BP 134/81; PULSE 96; RESP 18
[2016-05-17 11:32] VITALS: BP 107/58; PULSE 92; RESP 20
[2016-05-17 11:37] VITALS: BP 111/55; PULSE 90; RESP 10
[2016-05-17 11:55] VITALS: BP 131/77; PULSE 92; RESP 14
[2016-05-17] MEDS ORDERED: BARIUM SULFATE 135 ML (E-Z HD) PO ONE (13:47)
--- NOTE | 2016-05-17 15:25 | PN ---
Date/Time of Note Date/Time of Note DATE: 05/17/16 TIME: 15:24 Assessment/Plan Lines/Catheters IV C[facility]ter Type (from [facility] Peripheral IV Orr in Place (from [facility]): No Assessment/Plan Assessment/Plan [facility] In[facility] Progress Note Date of Service: 05/17/2016 Today's Assessment & Plan: Overall stable. Endoscopic evaluation demonstrated possible issues in the second or third portion of duodenum. Patient currently undergoing upper GI and was not available in the room for exam. I've recommended addition of contrast- enhanced MRI of the abdomen and pelvis along with MRCP for further delineation. If needed, the patient should also be scheduled for an outpatient endoscopic ultrasound evaluation of the head of his pancreas. Further surgical plans after above. With above assessment, I've recommended the following for today: 1. Continue current cares 2. Evaluation of upper GI 3. MRI of abdomen with IV contrast (pancreas protocol) along with MRCP 4. Set up for outpatient endoscopic ultrasound 5. Multidisciplinary tumor board presentation 6. I'll follow along with you Thank you again for your great care of this very pleasant gentleman and I'm certain his wonderful family. If there are any questions, please feel free to call me at [phone]. TOTAL VISIT TIME: 20 minutes of which more than half was spent in [id number] discussion with the patient as well as coordination of care between multiple physicians and providers. Disclaimer: Inadvertent spelling and grammatical errors are likely due to EHR/ dictation software use and do not reflect on the quality of delivered patient care. Also, please note that the electronic time recorded on this node does not necessarily reflect the actual time of the visit. Updated Clinical Summary: Very pleasant 55-year-old gentleman with significant history of pancreatitis due to alcohol abuse, and a few other medical issues (see below) who was admitted initially to [facility] 05/15/2016 with evidence of chronic pancreatitis with complications of gastric outlet obstruction and pancreatic duct obstruction. Past and present comorbidity list: 1. EtOH pancreatitis with several visits to healthcare centers per year 2. Chronic back pain 3. Anxiety neck slight 4. Panic attacks 5. Gastritis Subjective: No major reported events or complaints; patient not in room (? Upper GI) Objective: Vitals: See below I's & O's: See below Exam: Patient not in room (? Upper GI) Labs: See below Exam/Review of Systems Vital Signs Vitals Vital Signs Date Time Temp Pulse Resp B/P Pulse Ox O2 Delivery O2 Flow Rate FiO2 05/17/16 11:55 92 14 131/77 97 Room Air 05/17/16 11:32 97.8 Intake and Output 05/16/16 05/16/16 05/17/16 15:00 23:00 07:00 Intake Total 1511.2 ml 800 ml Output Total 600 ml 1000 ml 100 ml Balance -600 ml 511.2 ml 700 ml Results Result Diagram: 05/17/16 0520 05/17/16 0520 MAGDALENO KANG M.D. May 17, 2016 15:25
--- NOTE | 2016-05-17 16:42 | RADRPT ---
PROCEDURE: Upper GI series. CLINICAL INDICATION: Gastric outlet obstruction. Vomiting. TECHNIQUE: Barium was administered orally and several spot and overhead radiographs were obtained. COMPARISON: No prior study is available for comparison. FINDINGS: There is no aspiration. Esophageal motility is normal. There is no esophageal mass, ulcer, or stricture. There is no gastroesophageal reflux. There is a large amount of undigested food or debris within the stomach. The gastric emptying is di lated. The first and second part of the duodenum are dilated and contain a large amount of undigest ed food or debris. There is severe stenosis of the third part of the duodenum with only minimal bar ium extending past this point. IMPRESSION: 1. Large amount of undigested food or debris within the stomach and first and second parts of the d uodenum. 2. Delayed gastric emptying. 3. 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 RPTAT: QQ .Baltazar Covington MD, MD Date Time Electronically viewed and signed by .Baltazar Covington MD, on 05/17/2016 16:42 .R/
[2016-05-17] MEDS ORDERED: PANTOPRAZOLE 40 MG INJ IV SCH (18:00)
--- NOTE | 2016-05-17 18:24 | PN ---
Date/Time of Note Date/Time of Note DATE: 05/17/16 TIME: 18:18 Assessment/Plan VTE Prophylaxis VTE Prophylaxis Intervention: SCD's Lines/Catheters IV Catheter Type (from [facility]): Saline Lock Urinary Cath still in place: No Assessment/Plan Chief Complaint/Hosp Course ASSESSMENT AND PLAN: 1. Gastric outlet obstruction and duodenum per EGD. Dr. Wagoner is following in gastroenterology consultation. Continue n.p.o. Continue Zofran p.r.n. for nausea and Dilaudid p.r.n. for pain. Continue IV fluids. 2. Possible mass in the head of the pancreas. Dr. Sanchez is following in general surgery consultation, pending contrast MRI and MRCP. 3. Possible alcoholic-induced acute pancreatitis. 4. Alcohol dependence. room worker consult. Continue Protonix for peptic ulcer disease prophylaxis and sequential compression device for deep venous thrombosis prophylaxis. Further recommendations based on clinical course. Plan of care discussed with Dr. Lee. Problems: Subjective 24 Hr Interval Summary Free Text/Dictation Patient was in GI lab undergoing upper endoscopy during the rounds, patient is n.p.o. no nausea vomiting no fever reported per MARIE Bryson. Exam/Review of Systems Vital Signs Vitals Vital Signs Date Time Temp Pulse Resp B/P Pulse Ox O2 Delivery O2 Flow Rate FiO2 05/17/16 11:55 92 14 131/77 97 Room Air 05/17/16 11:32 97.8 Intake and Output 05/16/16 05/16/16 05/17/16 15:00 23:00 07:00 Intake Total 1511.2 ml 800 ml Output Total 600 ml 1000 ml 100 ml Balance -600 ml 511.2 ml 700 ml Results Result Diagram: 05/17/16 0520 05/17/16 0520 Results 24 hrs Laboratory Tests Test 05/17/16 05:20 Anion Gap 15 Basophils # 0.0 Basophils % 0.5 Blood Morphology Comment Blood Urea Nitrogen 7 Calcium Level 9.0 Carbon Dioxide Level 30 Chloride Level 101 Creatinine 0.89 Eosinophils # 0.3 Eosinophils % 4.9 Glucose Level 96 Hematocrit 35.1 L Hemoglobin 12.0 L Lymphocytes # 1.7 Lymphocytes % 27.9 Mean Corpuscular Hemoglobin 31.0 Mean Corpuscular Hemoglobin Concent 34.3 Mean Corpuscular Volume 90.2 Mean Platelet Volume 8.2 Monocytes # 0.7 Monocytes % 10.9 Neutrophils # 3.4 Neutrophils % 55.8 Nucleated Red Blood Cells # 0.0 Nucleated Red Blood Cells % 0.0 Platelet Count 249 Potassium Level 4.4 Red Blood Count 3.89 L Red Cell Distribution Width 15.6 H Sodium Level 142 White Blood Count 6.1 Medications Medications Current Medications Potassium Chloride/Dextrose/ Sod Cl (D5-1/2ns + KCl 20 Meq) 1,000 ml @ 125 mls/ hr Q8H IV Last administered on 05/16/16 19:58; Admin Dose 125 MLS/HR; Start at 06:00 Lorazepam (Ativan) 1 mg Q6H PRN IV ANXIETY Last administered on 05/17/16 17:55 ; Admin Dose 1 MG; Start 05/15/16 at 06:00 Ondansetron HCl (Zofran Inj) 4 mg Q6H PRN IV NAUSEA AND/OR VOMITING Last administered on 05/15/16 15:27; Admin Dose 4 MG; Start 05/15/16 at 06:00 Diphenhydramine HCl 25 mg 25 mg Q6H PRN IV NAUSEA AND/OR VOMITING Last administered on 05/17/16 03:56; Admin Dose 25 MG; Start 05/15/16 at 13:00 Multivitamins/ Thiamine HCl/ Folic Acid/Sodium Chloride (Mvi-12 Adult/ Vitamin B1/Folic Acid/NS) 1,011.2 ml @ 125 mls/ hr DAILY@09 IVPB Last administered on 05/17/16 08:01; Admin Dose 125 MLS/HR; Start 05/16/16 at 09:00 Hydromorphone HCl (Dilaudid) 1.5 mg Q3H PRN IV PAIN Last administered on 15:37; Admin Dose 1.5 MG; Start 05/16/16 at 15:00 Metoclopramide HCl (Reglan) 10 mg Q6 IV Last administered on 05/17/16 17:51; Admin Dose 10 MG; Start 05/17/16 at 00:00 Pantoprazole (Protonix Iv) 40 mg BID@07,19 IV ; Start 05/17/16 at 19:00 LEON TERRY May 17, 2016 18:24
[2016-05-17] MEDS: ONDANSETRON 4 MG INJ IV PRN (18:40)
[2016-05-17 19:20] VITALS: BP 138/89; RESP 18
[2016-05-18] MEDS: METOCLOPRAMIDE 10 MG INJ IV SCH ×4 (00:09→17:54)
[2016-05-18] MEDS: LORAZEPAM 2 MG INJ IV PRN ×3 (00:09→18:52)
[2016-05-18] MEDS: HYDROmorphONE 2 MG/ML SYG IV PRN ×7 (01:55→21:00)
[2016-05-18] MEDS: PANTOPRAZOLE 40 MG INJ IV SCH ×2 (05:14→18:52)
--- NOTE | 2016-05-18 05:17 | GILP ---
DATE OF PROCEDURE: NAME OF PROCEDURE: Esophagogastroduodenoscopy. PREOPERATIVE DIAGNOSIS: Patient presenting with history of abdominal pain and vomiting. CAT scan s howed a gastric dilatation and also dilatation of the second part of the duodenum. Rule out a neopl astic process causing the duodenal obstruction. POSTOPERATIVE DIAGNOSES: 1. Diffuse gastritis. 2. Some foreign body material, foreign bodies, probably food or vegetable matter; it is not very cl early known, found in the second part of the duodenum. The scope could not be advanced beyond this part. After discussing with the nurse photographic specialist, I did not to spend too much time, so I pulled the scope out immediately. DESCRIPTION OF PROCEDURE: After informed written consent was obtained, the patient was asked to lie on the left lateral side. Intravenous anesthesia was given by nurse photographic specialist. When the patient became somnolent, the Olympus video upper endoscope was introduced into the oropharynx, then into t he esophagus. Esophagus appeared to show thickened mucosal surface. Whether this is just a normal variant is not known. Varices cannot be excluded but no prominent varices noted, maybe faint varice s noted, 1 or 2 spots. The scope at this time was advanced into the stomach. Stomach showed a diff use erythema and friability. Scope at this time was advanced through the pylorus into the duodenum. Some vegetable material or food material of some kind is noted in the second part of the duodenum. Scope was not advanced at the request of the nurse photographic specialist because it would cause aspiration, hence I pulled the scope out immediately, and the procedure was terminated. PLAN: Recommend upper GI small bowel series to evaluate the third part of the duodenum to see what is causing the obstruction. Dictated By: CHARLEY NARAYANAN/EDIL Conf#: [id number] DID#: [id number] CC: SNEHA TINSLEY MD;*EndCC*
[2016-05-18] MEDS: D5W-0.45 NACL + KCL 20 MEQ 1,000 ML IV SCH ×3 (06:35→22:25)
[2016-05-18 07:48] VITALS: BP 146/87; RESP 18
[2016-05-18] MEDS: MULTIVITAMINS 10 ML, THIAMINE 100 MG, FOLIC ACID 1 MG in SOD CHLORIDE 0.9% 1,000 ML IVPB SCH (08:56)
--- NOTE | 2016-05-18 09:31 | RADRPT ---
PROCEDURE: MRI abdomen limited without contrast; MRCP CLINICAL INDICATION: Pancreatic ductal dilatation TECHNIQUE: Limited MRI of the abdomen was performed with T2 and T2 fat-saturated axial images obta ined with coronal T2 fat-saturated images as well. In addition, a dedicated high T2 signal intensity MRCP images were obtained in multiple planes with 3-D reconstructions. COMPARISON: CT 05/15/2014 FINDINGS: The gallbladder is unremarkable with no filling defects. No filling defects are seen within the echo iary ductal system with no evidence of biliary ductal dilatation. There is irregular dilatation of the majority the pancreatic duct involving the head, neck, and prox imal body. Pancreatic duct in the tail is not dilated and the duct measures up to 7 mm in diameter. Mild peripancreatic inflammatory joule. There is some irregular fullness of the pancreatic head n ot fully defined by this exam in this extends to involve the proximal aspect of the third segment of the duodenum where there is a focal area of luminal narrowing and this results in proximal dilatati on of the duodenum and distension of the stomach. There is some irregular signal seen within this a brenda. No definable enlarged lymph nodes are seen. There is a slightly narrowed appearance of the portal confluence within the area of irregular signal without evidence of a stenosis or occlusion. Flow void is present within the portal vein. There is uniform signal intensity of the liver without evidence of mass. The kidneys are symmetric without hydronephrosis or mass. The adrenal glands are within normal limi ts. The remainder of the small and large bowel demonstrate no other areas of obstruction. Fat stranding is seen within the central mesentery adjacent to the pancreatic head/uncinate process of the third segment of the duodenum. There is no acute osseous abnormality. IMPRESSION: There is irregular dilatation of the majority the pancreatic duct extending to the pancreatic head/u ncinate process with there is soft tissue fullness and surrounding fat stranding in this extends inv olve the third segment of the duodenum where there is focal narrowing and this results in dilatation of the proximal duodenum. This is worrisome for either inflammatory or neoplastic stricture of the duodenum and associated obstruction of the pancreatic duct and can be further assessed with endosco pic ultrasound. In addition, an MRI of the abdomen with and without contrast with pancreas protocol can be performed to better evaluate the structures of the rakel hepatis. No cholelithiasis or choledocholithiasis. No intrahepatic biliary ductal dilatation. RPTAT: AA .Lianne Zaarte MD, MD Date Time Electronically viewed and signed by .Lianne Zarate MD, MD on 05/18/2016 09:30 .J/
[2016-05-18 11:35] LABS: POTASSIUM 4.1 mmol/L (3.5-5.1)
[2016-05-18 11:38] LABS: CREATININE 0.73 mg/dl (0.61-1.24)
[2016-05-18 11:39] LABS: BASOPHILS % 0.4 % (0.0-2.0); EOSINOPHILS # 0.3 10^3/ul (0.0-0.5); EOSINOPHILS % 5.2 % (0.0-7.0); HEMATOCRIT 35.7 % (42.0-52.0); HEMOGLOBIN 12.3 g/dl (14.0-18.0); LYMPHOCYTES # 1.4 10^3/ul (0.8-2.9); LYMPHOCYTES % 23.7 % (15.0-51.0); MEAN CORPUSCULAR HEMOGLOBIN 30.7 pg (29.0-33.0); MEAN CORPUSCULAR HGB CONC 34.5 g/dl (32.0-37.0); MEAN PLATELET VOLUME 8.2 fl (7.4-10.4); MONOCYTE # 0.7 10^3/ul (0.3-0.9); MONOCYTES % 12.5 % (0.0-11.0); NEUTROPHIL # 3.3 10^3/ul (1.6-7.5); NEUTROPHILS % 58.2 % (39.0-77.0); PLATELET COUNT 250 10^3/UL (140-440); RED BLOOD COUNT 4.01 10^6/ul (4.70-6.10); UNCORRECTED WBC 5.7 10^3/ul (4.8-10.8); WHITE BLOOD COUNT 5.7 10^3/ul (4.8-10.8)
[2016-05-18 11:41] LABS: CONDITION 1; LH ANALYZER COMMENTS 1
--- NOTE | 2016-05-18 11:43 | PN ---
Date/Time of Note Date/Time of Note DATE: 05/18/16 TIME: 11:42 Assessment/Plan Lines/Catheters IV Catheter Type (from [facility]): Saline Lock Urinary Cath still in place: No Assessment/Plan Assessment/Plan 1. Acute alcoholic-induced acute pancreatitis. - per GI - npo - NGT to low intermittent suction- draining green fluid. - IVF - Zofran p.r.n. for nausea -plan for endoscopy tomorrow 2. Possible mass in the head of the pancreas. - pain management- dilaudid 1.5 mg q 3 hrs 3. Alcohol dependence. IV fluids with folic acid, thiamine and multivitamins. Continue Protonix for peptic ulcer disease prophylaxis and sequential compression device for deep venous thrombosis prophylaxis. Further recommendations based on clinical course. Plan of care discussed with Dr. Lee. Subjective 24 Hr Interval Summary Gastrointestinal: nausea Exam/Review of Systems Vital Signs Vitals Vital Signs Date Time Temp Pulse Resp B/P Pulse Ox O2 Delivery O2 Flow Rate FiO2 05/18/16 07:48 98.1 87 18 146/87 96 05/17/16 11:55 Room Air Intake and Output 05/17/16 05/17/16 05/18/16 14:59 22:59 06:59 Intake Total 100 ml 1211.2 ml 875 ml Output Total 3 ml 550 ml Balance 100 ml 1208.2 ml 325 ml Results Result Diagram: 05/18/16 1054 05/18/16 1054 Results 24 hrs Laboratory Tests Test 05/18/16 10:54 Anion Gap 14 Basophils # 0.0 Basophils % 0.4 Blood Morphology Comment Blood Urea Nitrogen 3 L Calcium Level 9.0 Carbon Dioxide Level 29 Chloride Level 101 Creatinine 0.73 Eosinophils # 0.3 Eosinophils % 5.2 Glucose Level 98 Hematocrit 35.7 L Hemoglobin 12.3 L Lymphocytes # 1.4 Lymphocytes % 23.7 Mean Corpuscular Hemoglobin 30.7 Mean Corpuscular Hemoglobin Concent 34.5 Mean Corpuscular Volume 89.0 Mean Platelet Volume 8.2 Monocytes # 0.7 Monocytes % 12.5 H Neutrophils # 3.3 Neutrophils % 58.2 Nucleated Red Blood Cells # 0.0 Nucleated Red Blood Cells % 0.0 Platelet Count 250 Potassium Level 4.1 Red Blood Count 4.01 L Red Cell Distribution Width 15.0 H Sodium Level 140 White Blood Count 5.7 Medications Medications Current Medications Potassium Chloride/Dextrose/ Sod Cl (D5-1/2ns + KCl 20 Meq) 1,000 ml @ 125 mls/ hr Q8H IV Last administered on 05/18/16 06:35; Admin Dose 125 MLS/HR; Start at 06:00 Lorazepam (Ativan) 1 mg Q6H PRN IV ANXIETY Last administered on 05/18/16 08:55 ; Admin Dose 1 MG; Start 05/15/16 at 06:00 Ondansetron HCl (Zofran Inj) 4 mg Q6H PRN IV NAUSEA AND/OR VOMITING Last administered on 05/17/16 18:40; Admin Dose 4 MG; Start 05/15/16 at 06:00 Diphenhydramine HCl 25 mg 25 mg Q6H PRN IV NAUSEA AND/OR VOMITING Last administered on 05/17/16 21:01; Admin Dose 25 MG; Start 05/15/16 at 13:00 Multivitamins/ Thiamine HCl/ Folic Acid/Sodium Chloride (Mvi-12 Adult/ Vitamin B1/Folic Acid/NS) 1,011.2 ml @ 125 mls/ hr DAILY@09 IVPB Last administered on 05/18/16 08:56; Admin Dose 125 MLS/HR; Start 05/16/16 at 09:00 Hydromorphone HCl (Dilaudid) 1.5 mg Q3H PRN IV PAIN Last administered on 11:28; Admin Dose 1.5 MG; Start 05/16/16 at 15:00 Metoclopramide HCl (Reglan) 10 mg Q6 IV Last administered on 05/18/16 11:28; Admin Dose 10 MG; Start 05/17/16 at 00:00 Pantoprazole (Protonix Iv) 40 mg BID@07,19 IV Last administered on 05/18/16 05 :14; Admin Dose 40 MG; Start 05/17/16 at 19:00 SO VILLARREAL May 18, 2016 11:42
--- NOTE | 2016-05-18 17:20 | CONS ---
DATE OF ADMISSION: 05/15/2016 DATE OF CONSULTATION: CHIEF COMPLAINT: Abdominal discomfort. PHYSICAL EXAMINATION: GENERAL: The patient is a 55-year-old gentleman. At this time, alert, well built, he is afe brile. ABDOMEN: Shows minimal fullness in the upper abdomen and minimal tenderness. LABORATORY WORKUP: Essentially as mentioned before, MRCP showed evidence of a dilatation of the samuel creatic duct with some narrowing also near the ampullary area. There is evidence of a mass noted in the head of the pancreatic region causing the obstruction into the duodenum. CLINICAL IMPRESSION: Chronic pancreatitis with probably inflammatory process causing the blockage o f the duodenum. Chronic pancreatitis due to alcohol history. PLAN: He probably may need a gastrojejunostomy, however, this plan will be decided by Dr. Sanchez. Dictated By: CHARLEY NARAYANAN/EDIL Conf#: [id number] DID#: [id number]
[2016-05-18 20:00] VITALS: BP 127/84; RESP 18
[2016-05-18] MEDS ORDERED: HYDROmorphONE 1 MG/ML SYG IV ONE (21:30)
[2016-05-18] MEDS: DIPHENHYDRAMINE 50 MG INJ IV PRN (22:29)
[2016-05-19] MEDS: HYDROmorphONE 2 MG/ML SYG IV PRN ×9 (00:01→21:35)
[2016-05-19] MEDS: METOCLOPRAMIDE 10 MG INJ IV SCH ×5 (05:41→23:59)
[2016-05-19] MEDS: BISACODYL 10 MG SUPP PR PRN ×2 (05:47→21:35)
[2016-05-19] MEDS: D5W-0.45 NACL + KCL 20 MEQ 1,000 ML IV SCH ×3 (06:03→21:41)
[2016-05-19] MEDS: PANTOPRAZOLE 40 MG INJ IV SCH ×2 (06:03→18:38)
[2016-05-19 08:15] VITALS: BP 140/87; RESP 22
[2016-05-19] MEDS: MULTIVITAMINS 10 ML, THIAMINE 100 MG, FOLIC ACID 1 MG in SOD CHLORIDE 0.9% 1,000 ML IVPB SCH (08:56)
[2016-05-19] MEDS: ONDANSETRON 4 MG INJ IV PRN ×2 (09:28→21:35)
[2016-05-19] MEDS: LORAZEPAM 2 MG INJ IV PRN ×2 (09:56→17:06)
--- NOTE | 2016-05-19 10:35 | PN ---
Date/Time of Note Date/Time of Note DATE: 05/19/16 TIME: 10:32 Assessment/Plan VTE Prophylaxis VTE Prophylaxis Intervention: SCD's, other Lines/Catheters IV Catheter Type (from Nrs): Peripheral IV Urinary Cath still in place: No Assessment/Plan Assessment/Plan 1. Acute alcoholic-induced acute pancreatitis. - per GI - npo - IVF - Zofran p.r.n. for nausea -plan for endoscopy 2. Possible mass in the head of the pancreas. - pain management- dilaudid 1.5 mg q 3 hrs 3. Alcohol dependence. IV fluids with folic acid, thiamine and multivitamins. Continue Protonix for peptic ulcer disease prophylaxis and sequential compression device for deep venous thrombosis prophylaxis. Further recommendations based on clinical course. Plan of care discussed with Dr. Lee. Subjective 24 Hr Interval Summary Free Text/Dictation c/o abdominal pain at times. per staff- patient went downstairs to [employer] machine. Patient accepted that he ate something but he wont do it again. resting , seems comfortable. disease process dw patient. dw staff. Eyes: no complaints ENT: no complaints Respiratory: no complaints Cardiovascular: no complaints Gastrointestinal: pain Genitourinary: no complaints Musculoskeletal: no complaints Skin: no complaints Neurologic: no complaints Exam/Review of Systems Vital Signs Vitals Vital Signs Date Time Temp Pulse Resp B/P Pulse Ox O2 Delivery O2 Flow Rate FiO2 05/19/16 08:15 98.4 83 22 140/87 96 05/17/16 11:55 Room Air Intake and Output 05/18/16 05/18/16 05/19/16 15:00 23:00 07:00 Intake Total 250 ml 2010.2 ml 1000 ml Output Total 500 ml Balance 250 ml 2010.2 ml 500 ml Exam Constitutional: alert, well developed Psych: nl mood/affect Head: atraumatic Eyes: EOMI, PERRL, nl sclera ENMT: nl external ears & nose Neck: non-tender Respiratory: clear to auscultation Cardiovascular: nl pulses Gastrointestinal: non-tender, soft Musculoskeletal: nl extremities to inspection Extremities: normal pulses Neurological: nl mental status, nl speech Skin: nl turgor Lymph: nl lymph nodes Results Result Diagram: 05/18/16 1054 05/18/16 1054 Results 24 hrs Laboratory Tests Test 05/18/16 10:54 Anion Gap 14 Basophils # 0.0 Basophils % 0.4 Blood Morphology Comment Blood Urea Nitrogen 3 L Calcium Level 9.0 Carbon Dioxide Level 29 Chloride Level 101 Creatinine 0.73 Eosinophils # 0.3 Eosinophils % 5.2 Glucose Level 98 Hematocrit 35.7 L Hemoglobin 12.3 L Lymphocytes # 1.4 Lymphocytes % 23.7 Mean Corpuscular Hemoglobin 30.7 Mean Corpuscular Hemoglobin Concent 34.5 Mean Corpuscular Volume 89.0 Mean Platelet Volume 8.2 Monocytes # 0.7 Monocytes % 12.5 H Neutrophils # 3.3 Neutrophils % 58.2 Nucleated Red Blood Cells # 0.0 Nucleated Red Blood Cells % 0.0 Platelet Count 250 Potassium Level 4.1 Red Blood Count 4.01 L Red Cell Distribution Width 15.0 H Sodium Level 140 White Blood Count 5.7 Medications Medications Current Medications Potassium Chloride/Dextrose/ Sod Cl (D5-1/2ns + KCl 20 Meq) 1,000 ml @ 125 mls/ hr Q8H IV Last administered on 05/19/16 06:03; Admin Dose 125 MLS/HR; Start at 06:00 Lorazepam (Ativan) 1 mg Q6H PRN IV ANXIETY Last administered on 05/19/16 09:56 ; Admin Dose 1 MG; Start 05/15/16 at 06:00 Ondansetron HCl (Zofran Inj) 4 mg Q6H PRN IV NAUSEA AND/OR VOMITING Last administered on 05/19/16 09:28; Admin Dose 4 MG; Start 05/15/16 at 06:00 Diphenhydramine HCl 25 mg 25 mg Q6H PRN IV NAUSEA AND/OR VOMITING Last administered on 05/18/16 22:29; Admin Dose 25 MG; Start 05/15/16 at 13:00 Multivitamins/ Thiamine HCl/ Folic Acid/Sodium Chloride (Mvi-12 Adult/ Vitamin B1/Folic Acid/NS) 1,011.2 ml @ 125 mls/ hr DAILY@09 IVPB Last administered on 05/19/16 08:56; Admin Dose 125 MLS/HR; Start 05/16/16 at 09:00 Hydromorphone HCl (Dilaudid) 1.5 mg Q3H PRN IV PAIN Last administered on 09:01; Admin Dose 1.5 MG; Start 05/16/16 at 15:00 Metoclopramide HCl (Reglan) 10 mg Q6 IV Last administered on 05/19/16 05:41; Admin Dose 10 MG; Start 05/17/16 at 00:00 Pantoprazole (Protonix Iv) 40 mg BID@07,19 IV Last administered on 05/19/16 06 :03; Admin Dose 40 MG; Start 05/17/16 at 19:00 Bisacodyl (Dulcolax Supp) 10 mg DAILY PRN CO CONSTIPATION Last administered on 05/19/16 05:47; Admin Dose 10 MG; Start 05/18/16 at 19:00 SO VILLARREAL May 19, 2016 10:34
[2016-05-19 10:45] LABS: BASOPHILS % 0.3 % (0.0-2.0); EOSINOPHILS # 0.3 10^3/ul (0.0-0.5); EOSINOPHILS % 6.3 % (0.0-7.0); HEMATOCRIT 35.8 % (42.0-52.0); LYMPHOCYTES # 1.2 10^3/ul (0.8-2.9); LYMPHOCYTES % 22.8 % (15.0-51.0); MEAN CORPUSCULAR HEMOGLOBIN 30.1 pg (29.0-33.0); MEAN CORPUSCULAR HGB CONC 33.5 g/dl (32.0-37.0); MEAN CORPUSCULAR VOLUME 89.7 fl (82.0-101.0); MEAN PLATELET VOLUME 8.1 fl (7.4-10.4); MONOCYTE # 0.7 10^3/ul (0.3-0.9); MONOCYTES % 14.7 % (0.0-11.0); NEUTROPHIL # 2.9 10^3/ul (1.6-7.5); NEUTROPHILS % 55.9 % (39.0-77.0); PLATELET COUNT 242 10^3/UL (140-440); RED CELL DISTRIBUTION WIDTH 14.6 % (11.5-14.5); UNCORRECTED WBC 5.1 10^3/ul (4.8-10.8); WHITE BLOOD COUNT 5.1 10^3/ul (4.8-10.8)
[2016-05-19 10:48] LABS: CONDITION 1; LH ANALYZER COMMENTS 1
[2016-05-19 11:07] LABS: POTASSIUM 4.1 mmol/L (3.5-5.1)
[2016-05-19 11:09] LABS: CREATININE 0.76 mg/dl (0.61-1.24)
--- NOTE | 2016-05-19 14:12 | PN ---
Date/Time of Note Date/Time of Note DATE: 05/18/16 TIME: 14:04 Assessment/Plan Lines/Catheters IV Catheter Type (from Nrs): Peripheral IV Orr in Place (from Nrs): No Assessment/Plan Assessment/Plan [facility] Progress Note (late entry) Date of Service: 05/18/2016 Today's Assessment & Plan: Overall stable with duodenal obstruction (3rd portion) with pancreas duct dilatation likely from severe chronic ETOH pancreatitis. Need CT with IV/oral contrast to further delineate. If no good endoscopic options, will likely need surgical bypass +/- [place]. Further surgical plans after above. With above assessment, I've recommended the following for today: 1. Continue current cares 2. CT of abdomen and pelvis with IV and oral (small amounts due to duodenal obstruction) contrast (pancreas protocol) 3. Set up for outpatient endoscopic ultrasound 4. Multidisciplinary tumor board presentation 5. I'll follow along with you Thank you again for your great care of this very pleasant gentleman and I'm certain his wonderful family. If there are any questions, please feel free to call me at [phone]. TOTAL VISIT TIME: 20 minutes of which more than half was spent in [id number] discussion with the patient as well as coordination of care between multiple physicians and providers. Disclaimer: Inadvertent spelling and grammatical errors are likely due to EHR/ dictation software use and do not reflect on the quality of delivered patient care. Also, please note that the electronic time recorded on this node does not necessarily reflect the actual time of the visit. Updated Clinical Summary: Very pleasant 55-year-old gentleman with significant history of pancreatitis due to alcohol abuse, and a few other medical issues (see below) who was admitted initially to [facility] 05/15/2016 with evidence of chronic pancreatitis with complications of gastric outlet obstruction and pancreatic duct obstruction. Endoscopic evaluation 05/17/16 demonstrated possible issues in the second or third portion of duodenum. MRCP 05/18/16 showed irregular dilatation of the majority the pancreatic duct extending to the pancreatic head/uncinate process with soft tissue fullness and surrounding fat stranding involving the third segment of the duodenum where there is focal narrowing and dilatation of the proximal duodenum, worrisome for either inflammatory or neoplastic stricture of the duodenum and associated obstruction of the pancreatic duct without cholelithiasis or choledocholithiasis or intrahepatic biliary ductal dilatation. Past and present comorbidity list: 1. EtOH pancreatitis with several visits to healthcare centers per year 2. Chronic back pain 3. Anxiety neck slight 4. Panic attacks 5. Gastritis Subjective: No major events or complaints; no sig abd pain and under control with medications; no n/v/d; no sob or cp; + flatus; - BM; + activity Objective: Vitals: See below Exam: GENERAL: On exam, the patient was sitting in a chair and appeared to be comfortable and in no acute distress. ABDOMEN: Soft, nontender and nondistended. There are no peritoneal signs or guarding. SKIN: Skin appears to be pink and feels warm to touch. NEUROLOGIC: Patient is awake, alert, and follows commands appropriately. Exam/Review of Systems Vital Signs Vitals Vital Signs Date Time Temp Pulse Resp B/P Pulse Ox O2 Delivery O2 Flow Rate FiO2 05/19/16 08:15 98.4 83 22 140/87 96 05/17/16 11:55 Room Air Intake and Output 05/18/16 05/18/16 05/19/16 15:00 23:00 07:00 Intake Total 250 ml 2010.2 ml 1000 ml Output Total 500 ml Balance 250 ml 2011.2 ml 500 ml Results Result Diagram: 05/19/16 1005 05/19/16 1005 MAGDALENO KANG M.D. May 19, 2016 14:12
--- NOTE | 2016-05-19 14:54 | PN ---
Date/Time of Note Date/Time of Note DATE: 05/19/16 TIME: 14:53 Assessment/Plan Lines/Catheters IV [facility]ter Type (from [facility]): Peripheral IV Orr in Place (from [facility]): No Assessment/Plan Assessment/Plan [facility] Progress Note Date of Service: 05/19/2016 Today's Assessment & Plan: Overall stable with duodenal obstruction (3rd portion) with pancreas duct dilatation likely from severe chronic ETOH pancreatitis. Awaiting CT with IV/ oral contrast to further delineate. If no good endoscopic options, will likely need surgical bypass +/- [place]. Further surgical plans after above. With above assessment, I've recommended the following for today: 1. Continue current cares 2. CT of abdomen and pelvis with IV and oral (small amounts due to duodenal obstruction) contrast (pancreas protocol) 3. Set up for outpatient endoscopic ultrasound 4. Multidisciplinary tumor board presentation 5. I'll follow along with you Thank you again for your great care of this very pleasant gentleman and I'm certain his wonderful family. If there are any questions, please feel free to call me at [phone]. TOTAL VISIT TIME: 20 minutes of which more than half was spent in [id number] discussion with the patient as well as coordination of care between multiple physicians and providers. Disclaimer: Inadvertent spelling and grammatical errors are likely due to EHR/ dictation software use and do not reflect on the quality of delivered patient care. Also, please note that the electronic time recorded on this node does not necessarily reflect the actual time of the visit. Updated Clinical Summary: Very pleasant 55-year-old gentleman with significant history of pancreatitis due to alcohol abuse, and a few other medical issues (see below) who was admitted initially to [facility] 05/15/2016 with evidence of chronic pancreatitis with complications of gastric outlet obstruction and pancreatic duct obstruction. Endoscopic evaluation 05/17/16 demonstrated possible issues in the second or third portion of duodenum. MRCP 05/18/16 showed irregular dilatation of the majority the pancreatic duct extending to the pancreatic head/uncinate process with soft tissue fullness and surrounding fat stranding involving the third segment of the duodenum where there is focal narrowing and dilatation of the proximal duodenum, worrisome for either inflammatory or neoplastic stricture of the duodenum and associated obstruction of the pancreatic duct without cholelithiasis or choledocholithiasis or intrahepatic biliary ductal dilatation. Past and present comorbidity list: 1. EtOH pancreatitis with several visits to healthcare centers per year 2. Chronic back pain 3. Anxiety neck slight 4. Panic attacks 5. Gastritis Subjective: No major events or complaints; no sig abd pain and under control with medications; no n/v/d; no sob or cp; + flatus; - BM; + activity Objective: Vitals: See below Exam: GENERAL: On exam, the patient was sitting in a chair and appeared to be comfortable and in no acute distress. ABDOMEN: Soft, nontender and nondistended. There are no peritoneal signs or guarding. SKIN: Skin appears to be pink and feels warm to touch. NEUROLOGIC: Patient is awake, alert, and follows commands appropriately. Exam/Review of Systems Vital Signs Vitals Vital Signs Date Time Temp Pulse Resp B/P Pulse Ox O2 Delivery O2 Flow Rate FiO2 05/19/16 08:15 98.4 83 22 140/87 96 05/17/16 11:55 Room Air Intake and Output 05/18/16 05/18/16 05/19/16 15:00 23:00 07:00 Intake Total 250 ml 2010.2 ml 1000 ml Output Total 500 ml Balance 250 ml 2011.2 ml 500 ml Results Result Diagram: 05/19/16 1005 05/19/16 1005 MAGDALENO KANG M.D. May 19, 2016 14:54
[2016-05-19] MEDS: DIPHENHYDRAMINE 50 MG INJ IV PRN (16:26)
[2016-05-19] MEDS ORDERED: SOD CHLORIDE 0.9% 100 ML ONE (17:02)
[2016-05-19] MEDS ORDERED: IOHEXOL 300MG/ML 150 ML BTL ONE (17:02)
[2016-05-19 19:54] VITALS: BP 142/87; RESP 16
--- NOTE | 2016-05-19 21:28 | RADRPT ---
PROCEDURE: CT Abdomen and Pelvis with Contrast CLINICAL INDICATION: Pancreas mass with gastric outlet obstruction TECHNIQUE: Transaxial images were obtained through the abdomen and pelvis on a multi-slice scanner following the intravenous administration of iodinated contrast. Residual barium was found within th e colon. Sagittal and coronal re-formations were subsequently reconstructed. One or more of the following dose reduction techniques were used: - Automated exposure control. - Adjustment of the mA and/or kV according to patient size. - Use of iterative reconstruction technique. Radiation dose: CTDIvol = 8.66 mGy; DLP = 441.23 mGy-cm. COMPARISON: Comparison to the previous CT without contrast dated 05/15/2016 FINDINGS: The study is limited in that residual barium is seen through much of the colon resulting in extensiv e artifact degrading multiple images. Lung bases: The visualized lung bases appear unremarkable. Liver: Normal in size diffusely fatty infiltrated. There is no focal lesion. The hepatic veins and p ortal veins appear patent. Gallbladder: The gallbladder wall appears slightly thickened. No radiopaque stone is identified. Bile ducts: The common hepatic and common bile duct are obscured by artifact from the barium. No in trahepatic bile duct dilatation is evident. Pancreas: The pancreatic duct is quite dilated measuring approximately 7.4 mm in diameter. There is increased soft tissue density of low attenuation within the head of the pancreas extending through the region of the duodenum and through the retroperitoneal region suspicious for a mass largely obsc ured by the artifact from the barium. Spleen: Normal in size with no focal lesion. Adrenals: Normal with no mass identified. Kidneys, ureters and bladder: The kidneys enhance normally and are normal in size and there is no ma ss, pathological calcification, or hydronephrosis evident. There is no perinephric stranding. The ur eters are partially obscured by the artifact. The bladder appears unremarkable. Reproductive organs: The prostate is not enlarged. Stomach, bowel, and mesentery: Most of the colon is obscured by the artifact. The stomach contains food debris but is not grossly distended. Partial obstruction at the level of the duodenum cannot b e excluded. Appendix: The vermiform appendix is not evident with the region obscured by the contrast. Peritoneum: No free fluid is seen within the pelvis or superior abdomen and no free air is identifie d. Aorta: Normal in caliber with no aneurysmal dilatation. IVC: The IVC appears somewhat compressed at the level of the pancreatic head mass. Lymph nodes: There may be retroperitoneal adenopathy in addition into the pancreatic mass but this a brenda is partially obscured by artifact. Osseous structures: The visualized osseous elements appear intact. IMPRESSION: 1. There is a substantial amount of residual barium within the colon which results in a tremendous amount of artifact degrading many of the images. 2. Suggestion of an infiltrating mass involving the head of the pancreas extending into the retrope ritoneal and possibly additional adenopathy. The pancreatic duct is dilated to 7.4 mm within the trey dy and tail. The mass extends into the suspected region of the duodenum as well as the retroperitone um, but is largely obscured by the artifact. This could be better evaluated with a repeat CT after t he barium passes through. 3. The gallbladder wall appears slightly thickened but no radiopaque stone is identified. Neural b ile duct dilatation is not appreciable but this area is obscured by artifact from the barium. 4. Normal sized liver with diffuse fatty infiltration and no focal lesion. There is no intrahepati c bile duct dilatation. 5. Normal appearing kidneys without hydronephrosis. The bladder appears unremarkable. 6. There are no findings to suggest bowel obstruction although most of the bowel is obscured by the barium. The stomach is moderately distended with food debris but is not grossly dilated. 7. The vena cava appears somewhat compressed by the increased soft tissue density in the region of the pancreatic head. 8. The osseous elements appear grossly intact. Physician Lakesha Date Time Electronically viewed and signed by Physician Lakesha on 05/19/2016 21:27 /
[2016-05-20] MEDS: D5W-0.45 NACL + KCL 20 MEQ 1,000 ML IV SCH ×4 (00:01→17:16)
[2016-05-20] MEDS: HYDROmorphONE 2 MG/ML SYG IV PRN ×8 (00:25→23:08)
[2016-05-20] MEDS: LORAZEPAM 2 MG INJ IV PRN ×2 (00:48→14:09)
[2016-05-20] MEDS: DIPHENHYDRAMINE 50 MG INJ IV PRN ×3 (03:40→23:08)
[2016-05-20 05:53] LABS: BASOPHILS % 0.2 % (0.0-2.0); EOSINOPHILS # 0.3 10^3/ul (0.0-0.5); EOSINOPHILS % 4.7 % (0.0-7.0); HEMATOCRIT 34.6 % (42.0-52.0); HEMOGLOBIN 11.8 g/dl (14.0-18.0); LYMPHOCYTES # 1.2 10^3/ul (0.8-2.9); LYMPHOCYTES % 20.3 % (15.0-51.0); MEAN CORPUSCULAR HEMOGLOBIN 30.5 pg (29.0-33.0); MEAN CORPUSCULAR HGB CONC 34.2 g/dl (32.0-37.0); MEAN CORPUSCULAR VOLUME 89.3 fl (82.0-101.0); MEAN PLATELET VOLUME 8.6 fl (7.4-10.4); MONOCYTE # 0.8 10^3/ul (0.3-0.9); MONOCYTES % 14.1 % (0.0-11.0); NEUTROPHIL # 3.4 10^3/ul (1.6-7.5); NEUTROPHILS % 60.7 % (39.0-77.0); PLATELET COUNT 242 10^3/UL (140-440); RED BLOOD COUNT 3.88 10^6/ul (4.70-6.10); RED CELL DISTRIBUTION WIDTH 14.9 % (11.5-14.5); UNCORRECTED WBC 5.7 10^3/ul (4.8-10.8); WHITE BLOOD COUNT 5.7 10^3/ul (4.8-10.8)
[2016-05-20 05:59] LABS: CONDITION 1; LH ANALYZER COMMENTS 1
[2016-05-20 06:09] LABS: POTASSIUM 3.9 mmol/L (3.5-5.1)
[2016-05-20 06:12] LABS: CREATININE 0.78 mg/dl (0.61-1.24)
[2016-05-20 06:13] LABS: CALCIUM 9.3 mg/dl (8.4-10.2)
[2016-05-20] MEDS: METOCLOPRAMIDE 10 MG INJ IV SCH ×3 (06:23→17:07)
[2016-05-20] MEDS: PANTOPRAZOLE 40 MG INJ IV SCH ×2 (06:23→18:40)
[2016-05-20 07:54] VITALS: BP 129/81; RESP 16
[2016-05-20] MEDS: MULTIVITAMINS 10 ML, THIAMINE 100 MG, FOLIC ACID 1 MG in SOD CHLORIDE 0.9% 1,000 ML IVPB SCH (09:25)
--- NOTE | 2016-05-20 17:09 | PN ---
Date/Time of Note Date/Time of Note DATE: 05/20/16 TIME: 17:01 Assessment/Plan Lines/Catheters IV Catheter Type (from [facility]): Peripheral IV Orr in Place (from [facility]): No Assessment/Plan Assessment/Plan [facility] Progress Note Date of Service: 05/20/2016 Today's Assessment & Plan: Overall stable with duodenal obstruction (3rd portion) with pancreas duct dilatation likely from severe chronic ETOH pancreatitis. CT with IV/oral contrast confirms findings. Cannot rule out malignancy and requires to have EUS eval prior to operative intervention (surgical bypass +/- [place]). With above assessment, I've recommended the following for today: 1. Start clear liquid diet and continue on liquid diet in preparation for d/c from hospital 2. Set up for outpatient EUS eval (will ask my office to assist with arrangements) 3. Multidisciplinary tumor board presentation Thank you again for your great care of this very pleasant gentleman and I'm certain his wonderful family. If there are any questions, please feel free to call me at [phone]. TOTAL VISIT TIME: 20 minutes of which more than half was spent in [id number] discussion with the patient as well as coordination of care between multiple physicians and providers. Disclaimer: Inadvertent spelling and grammatical errors are likely due to EHR/ dictation software use and do not reflect on the quality of delivered patient care. Also, please note that the electronic time recorded on this node does not necessarily reflect the actual time of the visit. Updated Clinical Summary: Very pleasant 55-year-old gentleman with significant history of pancreatitis due to alcohol abuse, and a few other medical issues (see below) who was admitted initially to [facility] 05/15/2016 with evidence of chronic pancreatitis with complications of gastric outlet obstruction and pancreatic duct obstruction. Endoscopic evaluation 05/17/16 demonstrated possible issues in the second or third portion of duodenum. MRCP 05/18/16 showed irregular dilatation of the majority the pancreatic duct extending to the pancreatic head/uncinate process with soft tissue fullness and surrounding fat stranding involving the third segment of the duodenum where there is focal narrowing and dilatation of the proximal duodenum, worrisome for either inflammatory or neoplastic stricture of the duodenum and associated obstruction of the pancreatic duct without cholelithiasis or choledocholithiasis or intrahepatic biliary ductal dilatation. CT abd/pelvis with contrast 1/15/17 showed substantial amount of residual barium within the colon which results in a tremendous amount of artifact degrading many of the images. Suggestion of an infiltrating mass involving the head of the pancreas extending into the retroperitoneal and possibly additional adenopathy. The pancreatic duct is dilated to 7.4 mm within the body and tail. The mass extends into the suspected region of the duodenum as well as the retroperitoneum. Past and present comorbidity list: 1. EtOH pancreatitis with several visits to healthcare centers per year 2. Chronic back pain 3. Anxiety neck slight 4. Panic attacks 5. Gastritis Subjective: No major events or complaints; no sig abd pain and under control with medications; no n/v/d; no sob or cp; + flatus; - BM; + activity Objective: Vitals: See below Exam: GENERAL: On exam, the patient was sitting up in his bed and appeared to be comfortable and in no acute distress. ABDOMEN: Soft, nontender and nondistended. There are no peritoneal signs or guarding. SKIN: Skin appears to be pink and feels warm to touch. NEUROLOGIC: Patient is awake, alert, and follows commands appropriately. Exam/Review of Systems Vital Signs Vitals Vital Signs Date Time Temp Pulse Resp B/P Pulse Ox O2 Delivery O2 Flow Rate FiO2 05/20/16 07:54 98.1 87 16 129/81 95 05/17/16 11:55 Room Air Intake and Output 05/19/16 05/19/16 05/20/16 15:00 23:00 07:00 Intake Total 275 ml 1011.2 ml 1187 ml Balance 275 ml 1011.2 ml 1187 ml Results Result Diagram: 05/20/16 0418 05/20/16 0458 MAGDALENO KANG M.D. May 20, 2016 17:09
--- NOTE | 2016-05-20 18:55 | PN ---
Date/Time of Note Date/Time of Note DATE: 05/20/16 TIME: 18:50 Assessment/Plan VTE Prophylaxis VTE Prophylaxis Intervention: SCD's Lines/Catheters IV Catheter Type (from [facility] [place]): Peripheral IV Urinary Cath still in place: No Assessment/Plan Chief Complaint/Hosp Course ASSESSMENT AND PLAN: 1. Gastric outlet obstruction and duodenum per EGD. Dr. Cunha is following in gastroenterology consultation. Continue Zofran p.r.n. for nausea and Dilaudid p.r.n. for pain. Continue IV fluids. 2. Possible mass in the head of the pancreas. Dr. Sanchez is following in general surgery consultation. 3. Possible alcoholic-induced acute pancreatitis. 4. Alcohol dependence. 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 Continue Protonix for peptic ulcer disease prophylaxis and sequential compression device for deep venous thrombosis prophylaxis. Further recommendations based on clinical course. Plan of care discussed with Dr. Lee. Problems: Subjective 24 Hr Interval Summary Free Text/Dictation Patient started on clear liquid diet, tolerates it well so far. Exam/Review of Systems Vital Signs Vitals Vital Signs Date Time Temp Pulse Resp B/P Pulse Ox O2 Delivery O2 Flow Rate FiO2 05/20/16 07:54 98.1 87 16 129/81 95 05/17/16 11:55 Room Air Intake and Output 05/19/16 05/19/16 05/20/16 15:00 23:00 07:00 Intake Total 275 ml 1011.2 ml 1187 ml Balance 275 ml 1011.2 ml 1187 ml Exam GENERAL: Well-developed, well-nourished male in no acute distress. HEENT: Head is atraumatic, normocephalic. NECK: Supple, no cervical lymphadenopathy, no thyromegaly. CHEST: Lungs clear to auscultation bilaterally. No rhonchi, wheezes, rales noted. CARDIOVASCULAR: Normal S1, S2. No murmurs, gallops, clicks noted. ABDOMEN: Round, soft, nondistended. Patient has epigastric tenderness. Bowel sounds present. EXTREMITIES: No edema, clubbing or cyanosis. Pulses equal bilaterally 2+. SKIN: There is no rash, petechiae noted. NEUROLOGIC: Patient is alert and oriented x4. No focal deficits noted. Results Result Diagram: 05/20/16 0418 05/20/16 0458 Results 24 hrs Laboratory Tests Test 05/20/16 04:18 05/20/16 04:58 Basophils # 0.0 Basophils % 0.2 Blood Morphology Comment Eosinophils # 0.3 Eosinophils % 4.7 Hematocrit 34.6 L Hemoglobin 11.8 L Lymphocytes # 1.2 Lymphocytes % 20.3 Mean Corpuscular Hemoglobin 30.5 Mean Corpuscular Hemoglobin Concent 34.2 Mean Corpuscular Volume 89.3 Mean Platelet Volume 8.6 Monocytes # 0.8 Monocytes % 14.1 H Neutrophils # 3.4 Neutrophils % 60.7 Nucleated Red Blood Cells # 0.0 Nucleated Red Blood Cells % 0.0 Platelet Count 242 Red Blood Count 3.88 L Red Cell Distribution Width 14.9 H White Blood Count 5.7 Anion Gap 13 Blood Urea Nitrogen 3 L Calcium Level 9.3 Carbon Dioxide Level 29 Chloride Level 103 Creatinine 0.78 Glucose Level 98 Potassium Level 3.9 Sodium Level 141 Medications Medications Current Medications Potassium Chloride/Dextrose/ Sod Cl (D5-1/2ns + KCl 20 Meq) 1,000 ml @ 125 mls/ hr Q8H IV Last administered on 05/20/16 17:16; Admin Dose 125 MLS/HR; Start at 06:00 Lorazepam (Ativan) 1 mg Q6H PRN IV ANXIETY Last administered on 05/20/16 14:09 ; Admin Dose 1 MG; Start 05/15/16 at 06:00 Ondansetron HCl (Zofran Inj) 4 mg Q6H PRN IV NAUSEA AND/OR VOMITING Last administered on 05/19/16 21:35; Admin Dose 4 MG; Start 05/15/16 at 06:00 Diphenhydramine HCl 25 mg 25 mg Q6H PRN IV NAUSEA AND/OR VOMITING Last administered on 05/20/16 17:07; Admin Dose 25 MG; Start 05/15/16 at 13:00 Multivitamins/ Thiamine HCl/ Folic Acid/Sodium Chloride (Mvi-12 Adult/ Vitamin B1/Folic Acid/NS) 1,011.2 ml @ 125 mls/ hr DAILY@09 IVPB Last administered on 05/20/16 09:25; Admin Dose 125 MLS/HR; Start 05/16/16 at 09:00 Hydromorphone HCl (Dilaudid) 1.5 mg Q3H PRN IV PAIN Last administered on 17:07; Admin Dose 1.5 MG; Start 05/16/16 at 15:00 Metoclopramide HCl (Reglan) 10 mg Q6 IV Last administered on 05/20/16 17:07; Admin Dose 10 MG; Start 05/17/16 at 00:00 Pantoprazole (Protonix Iv) 40 mg BID@, IV Last administered on 05/20/16 18 :40; Admin Dose 40 MG; Start 05/17/16 at 19:00 Bisacodyl (Dulcolax Supp) 10 mg DAILY PRN [place] CONSTIPATION Last administered on 05/19/16 21:35; Admin Dose 10 MG; Start 05/18/16 at 19:00 Simethicone (Mylicon) 80 mg TID PRN PO DISTENSION/GAS/BLOATING Last administered on 05/20/16 12:52; Admin Dose 80 MG; Start 05/19/16 at 22:00 Acetaminophen (Tylenol Tab) 650 mg Q6H PRN PO PAIN AND OR ELEVATED TEMP; Start 05/20/16 at 18:00 LEON TERRY May 20, 2016 18:55
[2016-05-20 20:26] VITALS: BP 131/80; RESP 20
[2016-05-21] MEDS: METOCLOPRAMIDE 10 MG INJ IV SCH ×5 (00:14→17:51)
[2016-05-21] MEDS: LORAZEPAM 2 MG INJ IV PRN ×2 (00:19→16:11)
[2016-05-21] MEDS: HYDROmorphONE 2 MG/ML SYG IV PRN ×6 (02:41→20:57)
[2016-05-21] MEDS: D5W-0.45 NACL + KCL 20 MEQ 1,000 ML IV SCH ×4 (02:42→16:11)
[2016-05-21] MEDS: DIPHENHYDRAMINE 50 MG INJ IV PRN ×3 (05:50→20:02)
[2016-05-21] MEDS: PANTOPRAZOLE 40 MG INJ IV SCH ×2 (06:52→17:52)
[2016-05-21 07:36] VITALS: BP 139/88; RESP 22
[2016-05-21] MEDS: MULTIVITAMINS 10 ML, THIAMINE 100 MG, FOLIC ACID 1 MG in SOD CHLORIDE 0.9% 1,000 ML IVPB SCH (08:47)
--- NOTE | 2016-05-21 11:18 | PN ---
Date/Time of Note Date/Time of Note DATE: 05/21/16 TIME: 11:15 Assessment/Plan Lines/Catheters IV Catheter Type (from [facility]): Peripheral IV Orr in Place (from [facility]): No Assessment/Plan Assessment/Plan [facility] Progress Note Date of Service: 05/21/2016 Today's Assessment & Plan: Overall stable with duodenal obstruction (3rd portion) with pancreas duct dilatation likely from severe chronic ETOH pancreatitis. CT with IV/oral contrast confirms findings. Cannot rule out malignancy and requires to have EUS eval prior to operative intervention (surgical bypass +/- [place]). I asked my office to assist with arranging outpatient endoscopic ultrasound evaluation for the patient. He appears to be tolerating his liquids and could potentially be discharged home for this outpatient endoscopic ultrasound evaluation. Once that is done, he will likely need gastric bypass as well as a [place] procedure. With above assessment, I've recommended the following for today: 1. Cont liquid diet in preparation for d/c from hospital 2. Set up for outpatient EUS eval ( my office assisting with arrangements) 3. Multidisciplinary tumor board presentation Thank you again for your great care of this very pleasant gentleman and I'm certain his wonderful family. If there are any questions, please feel free to call me at [phone]. TOTAL VISIT TIME: 20 minutes of which more than half was spent in [id number] discussion with the patient as well as coordination of care between multiple physicians and providers. Disclaimer: Inadvertent spelling and grammatical errors are likely due to EHR/ dictation software use and do not reflect on the quality of delivered patient care. Also, please note that the electronic time recorded on this node does not necessarily reflect the actual time of the visit. Updated Clinical Summary: Very pleasant 55-year-old gentleman with significant history of pancreatitis due to alcohol abuse, and a few other medical issues (see below) who was admitted initially to [facility] 05/15/2016 with evidence of chronic pancreatitis with complications of gastric outlet obstruction and pancreatic duct obstruction. Endoscopic evaluation 05/17/16 demonstrated possible issues in the second or third portion of duodenum. MRCP 05/18/16 showed irregular dilatation of the majority the pancreatic duct extending to the pancreatic head/uncinate process with soft tissue fullness and surrounding fat stranding involving the third segment of the duodenum where there is focal narrowing and dilatation of the proximal duodenum, worrisome for either inflammatory or neoplastic stricture of the duodenum and associated obstruction of the pancreatic duct without cholelithiasis or choledocholithiasis or intrahepatic biliary ductal dilatation. CT abd/pelvis with contrast 05/19/16 showed substantial amount of residual barium within the colon which results in a tremendous amount of artifact degrading many of the images. Suggestion of an infiltrating mass involving the head of the pancreas extending into the retroperitoneal and possibly additional adenopathy. The pancreatic duct is dilated to 7.4 mm within the body and tail. The mass extends into the suspected region of the duodenum as well as the retroperitoneum. Past and present comorbidity list: 1. EtOH pancreatitis with several visits to healthcare centers per year 2. Chronic back pain 3. Anxiety neck slight 4. Panic attacks 5. Gastritis Subjective: No major events or complaints; no sig abd pain and under control with medications; no n/v/d; no sob or cp; + flatus; - BM; + activity Objective: Vitals: See below Exam: GENERAL: On exam, the patient was sitting up in his bed and appeared to be comfortable and in no acute distress. ABDOMEN: Soft, nontender and nondistended. There are no peritoneal signs or guarding. SKIN: Skin appears to be pink and feels warm to touch. NEUROLOGIC: Patient is awake, alert, and follows commands appropriately. Exam/Review of Systems Vital Signs Vitals Vital Signs Date Time Temp Pulse Resp B/P Pulse Ox O2 Delivery O2 Flow Rate FiO2 05/21/16 07:36 97.6 75 22 139/88 99 05/17/16 11:55 Room Air Intake and Output 05/20/16 05/20/16 05/21/16 15:00 23:00 07:00 Intake Total 1740 ml 1735 ml Balance 1740 ml 1735 ml Results Result Diagram: 05/20/16 0418 05/20/16 0458 MAGDALENO KANG M.D. May 21, 2016 11:18
--- NOTE | 2016-05-21 14:48 | PN ---
Date/Time of Note Date/Time of Note DATE: 05/21/16 TIME: 14:47 Assessment/Plan VTE Prophylaxis VTE Prophylaxis Intervention: SCD's Lines/Catheters IV Catheter Type (from [facility]): Peripheral IV Urinary Cath still in place: No Assessment/Plan Chief Complaint/Hosp Course ASSESSMENT AND PLAN: 1. Gastric outlet obstruction and duodenum per EGD. Dr. Cunha is following in gastroenterology consultation. Continue Zofran p.r.n. for nausea and Dilaudid p.r.n. for pain. Continue IV fluids. 2. Possible mass in the head of the pancreas. Dr. Sanchez is following in general surgery consultation. 3. Possible alcoholic-induced acute pancreatitis. 4. Alcohol dependence. 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 Continue Protonix for peptic ulcer disease prophylaxis and sequential compression device for deep venous thrombosis prophylaxis. Further recommendations based on clinical course. Plan of care discussed with Dr. Lee. Problems: Subjective 24 Hr Interval Summary Free Text/Dictation Patient continues on IV fluids, tolerates liquid diet well, denies any nausea vomiting. Exam/Review of Systems Vital Signs Vitals Vital Signs Date Time Temp Pulse Resp B/P Pulse Ox O2 Delivery O2 Flow Rate FiO2 05/21/16 07:36 97.6 75 22 139/88 99 05/17/16 11:55 Room Air Intake and Output 05/20/16 05/20/16 05/21/16 15:00 23:00 07:00 Intake Total 1740 ml 1735 ml Balance 1740 ml 1735 ml Exam GENERAL: Well-developed, well-nourished male in no acute distress. HEENT: Head is atraumatic, normocephalic. NECK: Supple, no cervical lymphadenopathy, no thyromegaly. CHEST: Lungs clear to auscultation bilaterally. No rhonchi, wheezes, rales noted. CARDIOVASCULAR: Normal S1, S2. No murmurs, gallops, clicks noted. ABDOMEN: Round, soft, nondistended. Patient has epigastric tenderness. Bowel sounds present. EXTREMITIES: No edema, clubbing or cyanosis. Pulses equal bilaterally 2+. SKIN: There is no rash, petechiae noted. NEUROLOGIC: Patient is alert and oriented x4. No focal deficits noted. Results Result Diagram: 05/20/16 0418 05/20/16 0458 Medications Medications Current Medications Potassium Chloride/Dextrose/ Sod Cl (D5-1/2ns + KCl 20 Meq) 1,000 ml @ 125 mls/ hr Q8H IV Last administered on 05/21/16 02:42; Admin Dose 125 MLS/HR; Start at 06:00 Lorazepam (Ativan) 1 mg Q6H PRN IV ANXIETY Last administered on 05/21/16 00:19 ; Admin Dose 1 MG; Start 05/15/16 at 06:00 Ondansetron HCl (Zofran Inj) 4 mg Q6H PRN IV NAUSEA AND/OR VOMITING Last administered on 05/19/16 21:35; Admin Dose 4 MG; Start 05/15/16 at 06:00 Diphenhydramine HCl 25 mg 25 mg Q6H PRN IV NAUSEA AND/OR VOMITING Last administered on 05/21/16 12:45; Admin Dose 25 MG; Start 05/15/16 at 13:00 Multivitamins/ Thiamine HCl/ Folic Acid/Sodium Chloride (Mvi-12 Adult/ Vitamin B1/Folic Acid/NS) 1,011.2 ml @ 125 mls/ hr DAILY@09 IVPB Last administered on 05/21/16 08:47; Admin Dose 125 MLS/HR; Start 05/16/16 at 09:00 Hydromorphone HCl (Dilaudid) 1.5 mg Q3H PRN IV PAIN Last administered on 12:39; Admin Dose 1.5 MG; Start 05/16/16 at 15:00 Metoclopramide HCl (Reglan) 10 mg Q6 IV Last administered on 05/21/16 12:39; Admin Dose 10 MG; Start 05/17/16 at 00:00 Pantoprazole (Protonix Iv) 40 mg BID@07,19 IV Last administered on 05/21/16 06 :52; Admin Dose 40 MG; Start 05/17/16 at 19:00 Bisacodyl (Dulcolax Supp) 10 mg DAILY PRN [place] CONSTIPATION Last administered on 05/19/16 21:35; Admin Dose 10 MG; Start 05/18/16 at 19:00 Simethicone (Mylicon) 80 mg TID PRN PO DISTENSION/GAS/BLOATING Last administered on 05/21/16 02:47; Admin Dose 80 MG; Start 05/19/16 at 22:00 Acetaminophen (Tylenol Tab) 650 mg Q6H PRN PO PAIN AND OR ELEVATED TEMP; Start 05/20/16 at 18:00 LEON TERRY May 21, 2016 14:48
[2016-05-21 19:58] VITALS: BP 141/80; RESP 14
[2016-05-22] MEDS: METOCLOPRAMIDE 10 MG INJ IV SCH ×5 (00:06→23:32)
[2016-05-22] MEDS: HYDROmorphONE 2 MG/ML SYG IV PRN ×8 (00:07→23:32)
[2016-05-22] MEDS: LORAZEPAM 2 MG INJ IV PRN ×3 (00:46→19:05)
[2016-05-22] MEDS: DIPHENHYDRAMINE 50 MG INJ IV PRN ×4 (03:55→20:37)
[2016-05-22] MEDS: D5W-0.45 NACL + KCL 20 MEQ 1,000 ML IV SCH ×4 (03:55→20:03)
[2016-05-22 05:24] LABS: BASOPHILS % 1.1 % (0.0-2.0); EOSINOPHILS # 0.3 10^3/ul (0.0-0.5); EOSINOPHILS % 7.4 % (0.0-7.0); HEMATOCRIT 33.1 % (42.0-52.0); HEMOGLOBIN 11.1 g/dl (14.0-18.0); LYMPHOCYTES # 1.6 10^3/ul (0.8-2.9); LYMPHOCYTES % 38.5 % (15.0-51.0); MEAN CORPUSCULAR HEMOGLOBIN 30.1 pg (29.0-33.0); MEAN CORPUSCULAR HGB CONC 33.6 g/dl (32.0-37.0); MEAN CORPUSCULAR VOLUME 89.8 fl (82.0-101.0); MEAN PLATELET VOLUME 8.2 fl (7.4-10.4); MONOCYTE # 0.5 10^3/ul (0.3-0.9); MONOCYTES % 12.5 % (0.0-11.0); NEUTROPHIL # 1.6 10^3/ul (1.6-7.5); NEUTROPHILS % 40.5 % (39.0-77.0); PLATELET COUNT 236 10^3/UL (140-440); RED BLOOD COUNT 3.69 10^6/ul (4.70-6.10); RED CELL DISTRIBUTION WIDTH 14.8 % (11.5-14.5)
[2016-05-22 05:55] LABS: CONDITION 1; LH ANALYZER COMMENTS 1
[2016-05-22 06:02] LABS: POTASSIUM 4.3 mmol/L (3.5-5.1)
[2016-05-22 06:05] LABS: CREATININE 0.8 mg/dl (0.61-1.24)
[2016-05-22 06:06] LABS: CALCIUM 8.7 mg/dl (8.4-10.2)
[2016-05-22] MEDS: PANTOPRAZOLE 40 MG INJ IV SCH ×2 (06:55→19:07)
[2016-05-22 07:44] VITALS: BP 139/80; RESP 18
[2016-05-22 16:33] VITALS: BP 141/88; PULSE 81; RESP 18
--- NOTE | 2016-05-22 16:46 | PN ---
Date/Time of Note Date/Time of Note DATE: 05/22/16 TIME: 16:41 Assessment/Plan VTE Prophylaxis VTE Prophylaxis Intervention: SCD's Lines/Catheters IV Catheter Type (from [facility]): Peripheral IV Urinary Cath still in place: No Assessment/Plan Chief Complaint/Hosp Course ASSESSMENT AND PLAN: 1. Gastric outlet obstruction and duodenum per EGD. Dr. Cunha is following in gastroenterology consultation. Continue Zofran p.r.n. for nausea and Dilaudid p.r.n. for pain. Continue IV fluids. Patient tolerates clear liquid diet well, will advance to full liquid. 2. Possible mass in the head of the pancreas. Dr. Sanchez is following in general surgery consultation. 3. Possible alcoholic-induced acute pancreatitis. 4. Alcohol dependence. 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 Continue Protonix for peptic ulcer disease prophylaxis and sequential compression device for deep venous thrombosis prophylaxis. Further recommendations based on clinical course. Plan of care discussed with Dr. Lee. Problems: Subjective 24 Hr Interval Summary Free Text/Dictation Diet advance to full liquid, no nausea vomiting. Exam/Review of Systems Vital Signs Vitals Vital Signs Date Time Temp Pulse Resp B/P Pulse Ox O2 Delivery O2 Flow Rate FiO2 05/22/16 16:33 98.5 81 18 141/88 99 Room Air Intake and Output 05/21/16 05/21/16 05/22/16 15:00 23:00 07:00 Intake Total 2350 ml 1455 ml Output Total 500 ml Balance 2350 ml 955 ml Exam GENERAL: Well-developed, well-nourished male in no acute distress. HEENT: Head is atraumatic, normocephalic. NECK: Supple, no cervical lymphadenopathy, no thyromegaly. CHEST: Lungs clear to auscultation bilaterally. No rhonchi, wheezes, rales noted. CARDIOVASCULAR: Normal S1, S2. No murmurs, gallops, clicks noted. ABDOMEN: Round, soft, nondistended. Patient has epigastric tenderness. Bowel sounds present. EXTREMITIES: No edema, clubbing or cyanosis. Pulses equal bilaterally 2+. SKIN: There is no rash, petechiae noted. NEUROLOGIC: Patient is alert and oriented x4. No focal deficits noted. Results Result Diagram: 05/22/1644405/22/16444 Results 24 hrs Laboratory Tests Test 05/22/16 04:45 Anion Gap 11 Basophils # 0.0 Basophils % 1.1 Blood Morphology Comment Blood Urea Nitrogen 3 L Calcium Level 8.7 Carbon Dioxide Level 31 Chloride Level 104 Creatinine 0.80 Eosinophils # 0.3 Eosinophils % 7.4 H Glucose Level 81 Hematocrit 33.1 L Hemoglobin 11.1 L Lymphocytes # 1.6 Lymphocytes % 38.5 Mean Corpuscular Hemoglobin 30.1 Mean Corpuscular Hemoglobin Concent 33.6 Mean Corpuscular Volume 89.8 Mean Platelet Volume 8.2 Monocytes # 0.5 Monocytes % 12.5 H Neutrophils # 1.6 Neutrophils % 40.5 Nucleated Red Blood Cells # 0.0 Nucleated Red Blood Cells % 0.0 Platelet Count 236 Potassium Level 4.3 Red Blood Count 3.69 L Red Cell Distribution Width 14.8 H Sodium Level 142 White Blood Count 4.0 #L Medications Medications Current Medications Potassium Chloride/Dextrose/ Sod Cl (D5-1/2ns + KCl 20 Meq) 1,000 ml @ 125 mls/ hr Q8H IV Last administered on 05/22/16 11:00; Admin Dose 125 MLS/HR; Start at 06:00 Lorazepam (Ativan) 1 mg Q6H PRN IV ANXIETY Last administered on 05/22/16 12:23 ; Admin Dose 1 MG; Start 05/15/16 at 06:00 Ondansetron HCl (Zofran Inj) 4 mg Q6H PRN IV NAUSEA AND/OR VOMITING Last administered on 05/19/16 21:35; Admin Dose 4 MG; Start 05/15/16 at 06:00 Diphenhydramine HCl (Benadryl) 25 mg Q6H PRN IV NAUSEA AND/OR VOMITING Last administered on 05/22/16 10:26; Admin Dose 25 MG; Start 05/15/16 at 13:00 Hydromorphone HCl (Dilaudid) 1.5 mg Q3H PRN IV PAIN Last administered on 14:21; Admin Dose 1.5 MG; Start 05/16/16 at 15:00 Metoclopramide HCl (Reglan) 10 mg Q6 IV Last administered on 05/22/16 12:23; Admin Dose 10 MG; Start 05/17/16 at 00:00 Pantoprazole (Protonix Iv) 40 mg BID@, IV Last administered on 05/22/16 06 :55; Admin Dose 40 MG; Start 05/17/16 at 19:00 Bisacodyl (Dulcolax Supp) 10 mg DAILY PRN DE CONSTIPATION Last administered on 05/19/16 21:35; Admin Dose 10 MG; Start 05/18/16 at 19:00 Simethicone (Mylicon) 80 mg TID PRN PO DISTENSION/GAS/BLOATING Last administered on 05/22/16 12:23; Admin Dose 80 MG; Start 05/19/16 at 22:00 Acetaminophen (Tylenol Tab) 650 mg Q6H PRN PO PAIN AND OR ELEVATED TEMP; Start 05/20/16 at 18:00 LEON TERRY May 22, 2016 16:46
[2016-05-22] MEDS: BISACODYL 10 MG SUPP PR PRN (17:42)
--- NOTE | 2016-05-22 18:22 | PN ---
Date/Time of Note Date/Time of Note DATE: 05/22/16 TIME: 18:21 Assessment/Plan Lines/Catheters IV Catheter Type (from [facility]): Peripheral IV Orr in Place (from [facility]): No Assessment/Plan Assessment/Plan [facility] Progress Note Date of Service: 05/22/2016 Today's Assessment & Plan: Overall stable with duodenal obstruction (3rd portion) with pancreas duct dilatation likely from severe chronic ETOH pancreatitis. CT with IV/oral contrast confirms findings. Cannot rule out malignancy and requires to have EUS eval prior to operative intervention (surgical bypass +/- [place]). I asked my office to assist with arranging outpatient endoscopic ultrasound evaluation for the patient. He appears to be tolerating his liquids and could potentially be discharged home for this outpatient endoscopic ultrasound evaluation. Once that is done, he will likely need gastric bypass as well as a Pu[place]ow procedure. No new issues today. Can likely advance to full liquid diet. With above assessment, I've recommended the following for today: 1. Full liquid diet 2. Set up for outpatient EUS eval ( my office assisting with arrangements) 3. Multidisciplinary tumor board presentation Thank you again for your great care of this very pleasant gentleman and I'm certain his wonderful family. If there are any questions, please feel free to call me at [phone]. TOTAL VISIT TIME: 20 minutes of which more than half was spent in [id number] discussion with the patient as well as coordination of care between multiple physicians and providers. Disclaimer: Inadvertent spelling and grammatical errors are likely due to EHR/ dictation software use and do not reflect on the quality of delivered patient care. Also, please note that the electronic time recorded on this node does not necessarily reflect the actual time of the visit. Updated Clinical Summary: Very pleasant 55-year-old gentleman with significant history of pancreatitis due to alcohol abuse, and a few other medical issues (see below) who was admitted initially to [facility] 05/15/2016 with evidence of chronic pancreatitis with complications of gastric outlet obstruction and pancreatic duct obstruction. Endoscopic evaluation 05/17/16 demonstrated possible issues in the second or third portion of duodenum. MRCP 05/18/16 showed irregular dilatation of the majority the pancreatic duct extending to the pancreatic head/uncinate process with soft tissue fullness and surrounding fat stranding involving the third segment of the duodenum where there is focal narrowing and dilatation of the proximal duodenum, worrisome for either inflammatory or neoplastic stricture of the duodenum and associated obstruction of the pancreatic duct without cholelithiasis or choledocholithiasis or intrahepatic biliary ductal dilatation. CT abd/pelvis with contrast 05/19/16 showed substantial amount of residual barium within the colon which results in a tremendous amount of artifact degrading many of the images. Suggestion of an infiltrating mass involving the head of the pancreas extending into the retroperitoneal and possibly additional adenopathy. The pancreatic duct is dilated to 7.4 mm within the body and tail. The mass extends into the suspected region of the duodenum as well as the retroperitoneum. Past and present comorbidity list: 1. EtOH pancreatitis with several visits to healthcare centers per year 2. Chronic back pain 3. Anxiety neck slight 4. Panic attacks 5. Gastritis Subjective: No major events or complaints; no sig abd pain and under control with medications; no n/v/d; no sob or cp; + flatus; + BM; + activity Objective: Vitals: See below Exam: GENERAL: On exam, the patient was sitting up in his bed and appeared to be comfortable and in no acute distress. ABDOMEN: Soft, nontender and nondistended. There are no peritoneal signs or guarding. SKIN: Skin appears to be pink and feels warm to touch. NEUROLOGIC: Patient is awake, alert, and follows commands appropriately. Exam/Review of Systems Vital Signs Vitals Vital Signs Date Time Temp Pulse Resp B/P Pulse Ox O2 Delivery O2 Flow Rate FiO2 05/22/16 16:33 98.5 81 18 141/88 99 Room Air Intake and Output 05/21/16 05/21/16 05/22/16 15:00 23:00 07:00 Intake Total 2350 ml 1455 ml Output Total 500 ml Balance 2350 ml 955 ml Results Result Diagram: 05/22/16 0445 05/22/16 0445 MAGDALENO KANG M.D. May 22, 2016 18:22
[2016-05-22 19:32] VITALS: BP 144/89; RESP 20
[2016-05-23] MEDS: LORAZEPAM 2 MG INJ IV PRN ×4 (01:11→22:35)
[2016-05-23] MEDS: DIPHENHYDRAMINE 50 MG INJ IV PRN ×3 (02:37→20:25)
[2016-05-23] MEDS: HYDROmorphONE 2 MG/ML SYG IV PRN ×6 (02:37→21:43)
[2016-05-23] MEDS: D5W-0.45 NACL + KCL 20 MEQ 1,000 ML IV SCH ×2 (03:38→14:54)
[2016-05-23] MEDS: METOCLOPRAMIDE 10 MG INJ IV SCH ×3 (05:29→18:32)
[2016-05-23] MEDS: PANTOPRAZOLE 40 MG INJ IV SCH ×2 (07:06→18:32)
[2016-05-23 07:40] VITALS: BP 139/86; RESP 20
[2016-05-23 08:07] LABS: BASOPHILS % 0.3 % (0.0-2.0); EOSINOPHILS # 0.4 10^3/ul (0.0-0.5); EOSINOPHILS % 7.2 % (0.0-7.0); HEMATOCRIT 34.5 % (42.0-52.0); HEMOGLOBIN 11.5 g/dl (14.0-18.0); LYMPHOCYTES # 1.5 10^3/ul (0.8-2.9); LYMPHOCYTES % 29.2 % (15.0-51.0); MEAN CORPUSCULAR HEMOGLOBIN 29.9 pg (29.0-33.0); MEAN CORPUSCULAR HGB CONC 33.4 g/dl (32.0-37.0); MEAN CORPUSCULAR VOLUME 89.4 fl (82.0-101.0); MEAN PLATELET VOLUME 8.6 fl (7.4-10.4); MONOCYTE # 0.6 10^3/ul (0.3-0.9); MONOCYTES % 11.2 % (0.0-11.0); NEUTROPHIL # 2.7 10^3/ul (1.6-7.5); NEUTROPHILS % 52.1 % (39.0-77.0); PLATELET COUNT 248 10^3/UL (140-440); RED BLOOD COUNT 3.86 10^6/ul (4.70-6.10); RED CELL DISTRIBUTION WIDTH 14.9 % (11.5-14.5); UNCORRECTED WBC 5.2 10^3/ul (4.8-10.8); WHITE BLOOD COUNT 5.2 10^3/ul (4.8-10.8)
[2016-05-23 08:10] LABS: CONDITION 1; LH ANALYZER COMMENTS 1
[2016-05-23 08:17] LABS: POTASSIUM 4.2 mmol/L (3.5-5.1)
[2016-05-23 08:19] LABS: CREATININE 0.75 mg/dl (0.61-1.24)
[2016-05-23 08:20] LABS: CALCIUM 8.9 mg/dl (8.4-10.2)
--- NOTE | 2016-05-23 12:03 | PN ---
Date/Time of Note Date/Time of Note DATE: 05/23/16 TIME: 11:49 Assessment/Plan Lines/Catheters IV Catheter Type (from [facility]): Peripheral IV Urinary Cath still in place: No Assessment/Plan Assessment/Plan 1. E. coli ESBL urinary tract infection per urinalysis, s/p treatment. 2. Dehydration, resolved. Continue IV fluids. Monitor electrolytes. 3. Acute kidney injury secondary to dehydration on top of chronic kidney disease. Continue to monitor BUN and creatinine. Dr Capellan in nephrology consult. Continue IV fluids. 4. Dementia. Continue Aricept. 5. Hypothyroidism. Continue Synthroid. 6. History of seizure disorder. Continue Keppra. 7. History of cerebrovascular accident. Continue patient on aspirin. Continue Lovenox for deep venous thrombosis prophylaxis and Protonix for peptic ulcer disease prophylaxis. Anticipate discharge home tomorrow is renal function improved. Further recommendations based on clinical course. Plan of care discussed with Dr. Lee Subjective 24 Hr Interval Summary Eyes: no complaints ENT: no complaints Respiratory: no complaints Cardiovascular: no complaints Gastrointestinal: pain Genitourinary: no complaints Musculoskeletal: no complaints Skin: no complaints Neurologic: no complaints Endocrine: no complaints Lymphatic: no complaints Psychological: no complaints Immunologic: no complaints Exam/Review of Systems Vital Signs Vitals Vital Signs Date Time Temp Pulse Resp B/P Pulse Ox O2 Delivery O2 Flow Rate FiO2 05/23/16 07:40 97.9 72 20 139/86 96 05/22/16 16:33 Room Air Intake and Output 05/22/16 05/22/16 05/23/16 15:00 23:00 07:00 Intake Total 875 ml 2140 ml 1040 ml Output Total 700 ml Balance 875 ml 2140 ml 340 ml Results Result Diagram: 05/23/16 0712 05/23/16 0712 Results 24 hrs Laboratory Tests Test 05/23/16 07:12 Anion Gap 14 Basophils # 0.0 Basophils % 0.3 Blood Morphology Comment Blood Urea Nitrogen 4 L Calcium Level 8.9 Carbon Dioxide Level 28 Chloride Level 103 Creatinine 0.75 Eosinophils # 0.4 Eosinophils % 7.2 H Glucose Level 95 Hematocrit 34.5 L Hemoglobin 11.5 L Lymphocytes # 1.5 Lymphocytes % 29.2 Mean Corpuscular Hemoglobin 29.9 Mean Corpuscular Hemoglobin Concent 33.4 Mean Corpuscular Volume 89.4 Mean Platelet Volume 8.6 Monocytes # 0.6 Monocytes % 11.2 H Neutrophils # 2.7 Neutrophils % 52.1 Nucleated Red Blood Cells # 0.0 Nucleated Red Blood Cells % 0.0 Platelet Count 248 Potassium Level 4.2 Red Blood Count 3.86 L Red Cell Distribution Width 14.9 H Sodium Level 141 White Blood Count 5.2 # Medications Medications Current Medications Potassium Chloride/Dextrose/ Sod Cl (D5-1/2ns + KCl 20 Meq) 1,000 ml @ 60 mls/ hr [id number] IV Last administered on 05/22/16 20:03; Admin Dose 60 MLS/HR; Start 05/15/16 at 06:00 Lorazepam (Ativan) 1 mg Q6H PRN IV ANXIETY Last administered on 05/23/16 07:06 ; Admin Dose 1 MG; Start 05/15/16 at 06:00 Ondansetron HCl (Zofran Inj) 4 mg Q6H PRN IV NAUSEA AND/OR VOMITING Last administered on 05/19/16 21:35; Admin Dose 4 MG; Start 05/15/16 at 06:00 Diphenhydramine HCl (Benadryl) 25 mg Q6H PRN IV NAUSEA AND/OR VOMITING Last administered on 05/23/16 02:37; Admin Dose 25 MG; Start 05/15/16 at 13:00 Hydromorphone HCl (Dilaudid) 1.5 mg Q3H PRN IV PAIN Last administered on 05:30; Admin Dose 1.5 MG; Start 05/16/16 at 15:00 Metoclopramide HCl (Reglan) 10 mg Q6 IV Last administered on 05/23/16 05:29; Admin Dose 10 MG; Start 05/17/16 at 00:00 Pantoprazole (Protonix Iv) 40 mg BID@ IV Last administered on 05/23/16 07 :06; Admin Dose 40 MG; Start 05/17/16 at 19:00 Bisacodyl (Dulcolax Supp) 10 mg DAILY PRN [place] CONSTIPATION Last administered on 05/22/16 17:42; Admin Dose 10 MG; Start 05/18/16 at 19:00 Simethicone (Mylicon) 80 mg TID PRN PO DISTENSION/GAS/BLOATING Last administered on 05/23/16 05:29; Admin Dose 80 MG; Start 05/19/16 at 22:00 Acetaminophen (Tylenol Tab) 650 mg Q6H PRN PO PAIN AND OR ELEVATED TEMP; Start 05/20/16 at 18:00 SO VILLARREAL May 23, 2016 11:59
--- NOTE | 2016-05-23 15:11 | PN ---
Date/Time of Note Date/Time of Note DATE: 05/23/16 TIME: 15:09 Assessment/Plan Lines/Catheters IV Catheter Type (from [facility]): Peripheral IV Orr in Place (from [facility]): No Assessment/Plan Assessment/Plan [facility] Progress Note Date of Service: 05/23/2016 Today's Assessment & Plan: Overall stable with duodenal obstruction (3rd portion) with pancreas duct dilatation likely from severe chronic ETOH pancreatitis. He appears to be tolerating his liquids and could potentially be discharged home for this outpatient endoscopic ultrasound evaluation. Once that is done, he will likely need gastric bypass as well as a Pu[place]ow procedure. No new issues today. With above assessment, I've recommended the following for today: 1. Cont full liquid diet 2. Set up for outpatient EUS eval ( my office assisting with arrangements) 3. Multidisciplinary tumor board presentation Thank you again for your great care of this very pleasant gentleman and I'm certain his wonderful family. If there are any questions, please feel free to call me at [phone]. TOTAL VISIT TIME: 20 minutes of which more than half was spent in [id number] discussion with the patient as well as coordination of care between multiple physicians and providers. Disclaimer: Inadvertent spelling and grammatical errors are likely due to EHR/ dictation software use and do not reflect on the quality of delivered patient care. Also, please note that the electronic time recorded on this node does not necessarily reflect the actual time of the visit. Updated Clinical Summary: Very pleasant 55-year-old gentleman with significant history of pancreatitis due to alcohol abuse, and a few other medical issues (see below) who was admitted initially to [facility] 05/15/2016 with evidence of chronic pancreatitis with complications of gastric outlet obstruction and pancreatic duct obstruction. Endoscopic evaluation 05/17/16 demonstrated possible issues in the second or third portion of duodenum. MRCP 05/18/16 showed irregular dilatation of the majority the pancreatic duct extending to the pancreatic head/uncinate process with soft tissue fullness and surrounding fat stranding involving the third segment of the duodenum where there is focal narrowing and dilatation of the proximal duodenum, worrisome for either inflammatory or neoplastic stricture of the duodenum and associated obstruction of the pancreatic duct without cholelithiasis or choledocholithiasis or intrahepatic biliary ductal dilatation. CT abd/pelvis with contrast 05/19/16 showed substantial amount of residual barium within the colon which results in a tremendous amount of artifact degrading many of the images. Suggestion of an infiltrating mass involving the head of the pancreas extending into the retroperitoneal and possibly additional adenopathy. The pancreatic duct is dilated to 7.4 mm within the body and tail. The mass extends into the suspected region of the duodenum as well as the retroperitoneum. Cannot rule out malignancy and requires to have EUS eval prior to operative intervention ( surgical bypass +/- [place]). I asked my office to assist with arranging outpatient endoscopic ultrasound evaluation for the patient. Past and present comorbidity list: 1. EtOH pancreatitis with several visits to healthcare centers per year 2. Chronic back pain 3. Anxiety neck slight 4. Panic attacks 5. Gastritis Subjective: No major events or complaints; no sig abd pain and under control with medications; no n/v/d; no sob or cp; + flatus; + BM; + activity; tolerated full liquid diet without nausea or vomiting and still having bowel movements. Objective: Vitals: See below Exam: GENERAL: On exam, the patient was laying in bed and appeared to be comfortable and in no acute distress. ABDOMEN: Soft, nontender and nondistended. There are no peritoneal signs or guarding. SKIN: Skin appears to be pink and feels warm to touch. NEUROLOGIC: Patient is awake, alert, and follows commands appropriately. Exam/Review of Systems Vital Signs Vitals Vital Signs Date Time Temp Pulse Resp B/P Pulse Ox O2 Delivery O2 Flow Rate FiO2 05/23/16 07:40 97.9 72 20 139/86 96 05/22/16 16:33 Room Air Intake and Output 05/22/16 05/22/16 05/23/16 15:00 23:00 07:00 Intake Total 875 ml 2140 ml 1040 ml Output Total 700 ml Balance 875 ml 2140 ml 340 ml Results Result Diagram: 05/23/16 0712 05/23/16 0712 MAGDALENO KANG M.D. May 23, 2016 15:11
[2016-05-23 19:29] VITALS: BP 163/92; RESP 20
[2016-05-23 19:33] VITALS: BP 99/54; RESP 18
[2016-05-23] MEDS: ACETAMINOPHEN 325 MG TAB PO PRN (20:26)
[2016-05-23 20:29] VITALS: BP 145/88; PULSE 80; RESP 18
[2016-05-24] MEDS: METOCLOPRAMIDE 10 MG INJ IV SCH ×4 (00:49→18:08)
[2016-05-24] MEDS: HYDROmorphONE 2 MG/ML SYG IV PRN ×7 (00:49→21:09)
[2016-05-24] MEDS: BISACODYL 10 MG SUPP PR PRN ×2 (00:57→21:36)
[2016-05-24] MEDS: DIPHENHYDRAMINE 50 MG INJ IV PRN ×3 (03:44→18:08)
[2016-05-24] MEDS: D5W-0.45 NACL + KCL 20 MEQ 1,000 ML IV SCH (03:50)
[2016-05-24] MEDS: PANTOPRAZOLE 40 MG INJ IV SCH ×2 (06:27→20:22)
[2016-05-24] MEDS: LORAZEPAM 2 MG INJ IV PRN ×3 (08:07→22:18)
[2016-05-24 08:16] VITALS: BP 165/94; RESP 18
--- NOTE | 2016-05-24 11:31 | PN ---
Date/Time of Note Date/Time of Note DATE: 05/24/16 TIME: 11:30 Assessment/Plan Lines/Catheters IV Catheter Type (from [facility]): Peripheral IV Orr in Place (from [facility]): No Assessment/Plan Assessment/Plan [facility] Progress Note Date of Service: 05/24/2016 Today's Assessment & Plan: Overall stable with duodenal obstruction (3rd portion) with pancreas duct dilatation likely from severe chronic ETOH pancreatitis. He appears to be tolerating his liquids and could potentially be discharged home for this outpatient endoscopic ultrasound evaluation. Once that is done, he will likely need gastric bypass as well as a Puestow procedure. No new issues today. Will advance to soft diet and saline lock IV. With above assessment, I've recommended the following for today: 1. Soft diet and saline lock IV 2. Set up for outpatient EUS eval ( my office assisting with arrangements) 3. Multidisciplinary tumor board presentation Thank you again for your great care of this very pleasant gentleman and I'm certain his wonderful family. If there are any questions, please feel free to call me at [phone]. TOTAL VISIT TIME: 20 minutes of which more than half was spent in [id number] discussion with the patient as well as coordination of care between multiple physicians and providers. Disclaimer: Inadvertent spelling and grammatical errors are likely due to EHR/ dictation software use and do not reflect on the quality of delivered patient care. Also, please note that the electronic time recorded on this node does not necessarily reflect the actual time of the visit. Updated Clinical Summary: Very pleasant 55-year-old gentleman with significant history of pancreatitis due to alcohol abuse, and a few other medical issues (see below) who was admitted initially to [facility] 05/15/2016 with evidence of chronic pancreatitis with complications of gastric outlet obstruction and pancreatic duct obstruction. Endoscopic evaluation 05/17/16 demonstrated possible issues in the second or third portion of duodenum. MRCP 05/18/16 showed irregular dilatation of the majority the pancreatic duct extending to the pancreatic head/uncinate process with soft tissue fullness and surrounding fat stranding involving the third segment of the duodenum where there is focal narrowing and dilatation of the proximal duodenum, worrisome for either inflammatory or neoplastic stricture of the duodenum and associated obstruction of the pancreatic duct without cholelithiasis or choledocholithiasis or intrahepatic biliary ductal dilatation. CT abd/pelvis with contrast 05/19/16 showed substantial amount of residual barium within the colon which results in a tremendous amount of artifact degrading many of the images. Suggestion of an infiltrating mass involving the head of the pancreas extending into the retroperitoneal and possibly additional adenopathy. The pancreatic duct is dilated to 7.4 mm within the body and tail. The mass extends into the suspected region of the duodenum as well as the retroperitoneum. Cannot rule out malignancy and requires to have EUS eval prior to operative intervention ( surgical bypass +/- [place]). I asked my office to assist with arranging outpatient endoscopic ultrasound evaluation for the patient. Past and present comorbidity list: 1. EtOH pancreatitis with several visits to healthcare centers per year 2. Chronic back pain 3. Anxiety neck slight 4. Panic attacks 5. Gastritis Subjective: No major events or complaints; no sig abd pain and under control with medications; no n/v/d; no sob or cp; + flatus; + BM; + activity; tolerated full liquid diet without nausea or vomiting and still having bowel movements. Objective: Vitals: See below Exam: GENERAL: On exam, the patient was laying in bed and appeared to be comfortable and in no acute distress. ABDOMEN: Soft, nontender and nondistended. There are no peritoneal signs or guarding. SKIN: Skin appears to be pink and feels warm to touch. NEUROLOGIC: Patient is awake, alert, and follows commands appropriately. Exam/Review of Systems Vital Signs Vitals Vital Signs Date Time Temp Pulse Resp B/P Pulse Ox O2 Delivery O2 Flow Rate FiO2 05/24/16 08:16 97.5 80 18 165/94 100 05/23/16 20:29 Room Air Intake and Output 05/23/16 05/23/16 05/24/16 15:00 23:00 07:00 Intake Total 400 ml 960 ml 2660 ml Balance 400 ml 960 ml 2660 ml Results Result Diagram: 05/23/16 0712 05/23/16 0712 MAGDALENO KANG M.D. May 24, 2016 11:31
--- NOTE | 2016-05-24 14:20 | PN ---
Date/Time of Note Date/Time of Note DATE: 05/24/16 TIME: 14:20 Assessment/Plan VTE Prophylaxis VTE Prophylaxis Intervention: other Lines/Catheters IV [facility] (from [facility] Peripheral IV Urinary Cath still in place: No Assessment/Plan Chief Complaint/Hosp Course 1. E. coli ESBL urinary tract infection per urinalysis, s/p treatment. 2. Dehydration, resolved. Continue IV fluids. Monitor electrolytes. 3. Acute kidney injury secondary to dehydration on top of chronic kidney disease. Continue to monitor BUN and creatinine. Dr Capellan in nephrology consult. Continue IV fluids. 4. Dementia. Continue Aricept. 5. Hypothyroidism. Continue Synthroid. 6. History of seizure disorder. Continue Keppra. 7. History of cerebrovascular accident. Continue patient on aspirin. Problems: Subjective 24 Hr Interval Summary Free Text/Dictation Patient still have abdominal pain Exam/Review of Systems Vital Signs Vitals Vital Signs Date Time Temp Pulse Resp B/P Pulse Ox O2 Delivery O2 Flow Rate FiO2 05/24/16 08:16 97.5 80 18 165/94 100 05/23/16 20:29 Room Air Intake and Output 05/23/16 05/23/16 05/24/16 15:00 23:00 07:00 Intake Total 400 ml 960 ml 2660 ml Balance 400 ml 960 ml 2660 ml Exam Head: atraumatic, normocephalic Neck: supple Respiratory: clear to auscultation Cardiovascular: regular rate and rhythm Gastrointestinal: soft, tender Results Result Diagram: 05/23/1612 05/23/16 0712 Medications Medications Current Medications Potassium Chloride/Dextrose/ Sod Cl (D5-1/2ns + KCl 20 Meq) 1,000 ml @ 60 mls/ hr [id number] IV Last administered on 05/24/16 03:50; Admin Dose 60 MLS/HR; Start 05/15/16 at 06:00 Lorazepam (Ativan) 1 mg Q6H PRN IV ANXIETY Last administered on 05/24/16 08:07 ; Admin Dose 1 MG; Start 05/15/16 at 06:00 Ondansetron HCl (Zofran Inj) 4 mg Q6H PRN IV NAUSEA AND/OR VOMITING Last administered on 05/19/16 21:35; Admin Dose 4 MG; Start 05/15/16 at 06:00 Diphenhydramine HCl (Benadryl) 25 mg Q6H PRN IV NAUSEA AND/OR VOMITING Last administered on 05/24/16 11:25; Admin Dose 25 MG; Start 05/15/16 at 13:00 Hydromorphone HCl (Dilaudid) 1.5 mg Q3H PRN IV PAIN Last administered on 11:26; Admin Dose 1.5 MG; Start 05/16/16 at 15:00 Metoclopramide HCl (Reglan) 10 mg Q6 IV Last administered on 05/24/16 11:25; Admin Dose 10 MG; Start 05/17/16 at 00:00 Pantoprazole (Protonix Iv) 40 mg BID@ IV Last administered on 05/24/16 06 :27; Admin Dose 40 MG; Start 05/17/16 at 19:00 Bisacodyl (Dulcolax Supp) 10 mg DAILY PRN [place] CONSTIPATION Last administered on 05/24/16 00:57; Admin Dose 10 MG; Start 05/18/16 at 19:00 Simethicone (Mylicon) 80 mg TID PRN PO DISTENSION/GAS/BLOATING Last administered on 05/23/16 14:35; Admin Dose 80 MG; Start 05/19/16 at 22:00 Acetaminophen (Tylenol Tab) 650 mg Q6H PRN PO PAIN AND OR ELEVATED TEMP Last administered on 05/23/16 20:26; Admin Dose 650 MG; Start 05/20/16 at 18:00 REINA AHMADI May 24, 2016 14:20
[2016-05-24 14:29] LABS: BASOPHILS % 0.4 % (0.0-2.0); EOSINOPHILS # 0.3 10^3/ul (0.0-0.5); EOSINOPHILS % 5.3 % (0.0-7.0); HEMATOCRIT 37.6 % (42.0-52.0); HEMOGLOBIN 12.4 g/dl (14.0-18.0); LYMPHOCYTES # 1.7 10^3/ul (0.8-2.9); LYMPHOCYTES % 26.9 % (15.0-51.0); MEAN CORPUSCULAR HEMOGLOBIN 29.6 pg (29.0-33.0); MEAN CORPUSCULAR VOLUME 89.7 fl (82.0-101.0); MEAN PLATELET VOLUME 8.5 fl (7.4-10.4); MONOCYTE # 0.7 10^3/ul (0.3-0.9); MONOCYTES % 10.7 % (0.0-11.0); NEUTROPHIL # 3.6 10^3/ul (1.6-7.5); NEUTROPHILS % 56.7 % (39.0-77.0); PLATELET COUNT 268 10^3/UL (140-440); RED BLOOD COUNT 4.19 10^6/ul (4.70-6.10); RED CELL DISTRIBUTION WIDTH 14.4 % (11.5-14.5); UNCORRECTED WBC 6.3 10^3/ul (4.8-10.8); WHITE BLOOD COUNT 6.3 10^3/ul (4.8-10.8)
[2016-05-24 14:30] LABS: CONDITION 1
[2016-05-24 14:32] LABS: POTASSIUM 4.2 mmol/L (3.5-5.1)
[2016-05-24 14:35] LABS: CREATININE 0.76 mg/dl (0.61-1.24)
[2016-05-24 14:36] LABS: CALCIUM 9.2 mg/dl (8.4-10.2)
[2016-05-24 19:54] VITALS: BP 134/86; RESP 18
[2016-05-25] MEDS: METOCLOPRAMIDE 10 MG INJ IV SCH ×4 (00:23→17:52)
[2016-05-25] MEDS: DIPHENHYDRAMINE 50 MG INJ IV PRN ×2 (00:23→15:33)
[2016-05-25] MEDS: HYDROmorphONE 2 MG/ML SYG IV PRN ×8 (00:24→22:13)
[2016-05-25] MEDS: PANTOPRAZOLE 40 MG INJ IV SCH ×2 (06:43→19:00)
--- NOTE | 2016-05-25 10:29 | PN ---
Date/Time of Note Date/Time of Note DATE: 05/25/16 TIME: 10:28 Assessment/Plan VTE Prophylaxis VTE Prophylaxis Intervention: other Lines/Catheters IV Catheter Type (from [facility]): Saline Lock Urinary Cath still in place: No Assessment/Plan Chief Complaint/Hosp Course 1. E. coli ESBL urinary tract infection per urinalysis, s/p treatment. 2. Dehydration, resolved. Continue IV fluids. Monitor electrolytes. 3. Acute kidney injury secondary to dehydration on top of chronic kidney disease. Continue to monitor BUN and creatinine. Dr Capellan in nephrology consult. Continue IV fluids. 4. Dementia. Continue Aricept. 5. Hypothyroidism. Continue Synthroid. 6. History of seizure disorder. Continue Keppra. 7. History of cerebrovascular accident. Continue patient on aspirin. Problems: Subjective 24 Hr Interval Summary Free Text/Dictation Patient still has abdominal pain, wants creon which he uses. Patient has a history of pancreatitis in the past Exam/Review of Systems Vital Signs Vitals Vital Signs Date Time Temp Pulse Resp B/P Pulse Ox O2 Delivery O2 Flow Rate FiO2 05/24/16 19:54 97.3 84 18 134/86 100 05/23/16 20:29 Room Air Intake and Output 05/24/16 05/24/16 05/25/16 15:00 23:00 07:00 Intake Total 1920 ml 720 ml Balance 1920 ml 720 ml Exam Constitutional: well developed Head: atraumatic, normocephalic Neck: supple Respiratory: clear to auscultation Cardiovascular: regular rate and rhythm Gastrointestinal: soft, tender Extremities: normal pulses Results Result Diagram: 05/24/16 1405 05/24/16 1405 Results 24 hrs Laboratory Tests Test 05/24/16 14:05 Anion Gap 18 H Basophils # 0.0 Basophils % 0.4 Blood Urea Nitrogen 7 Calcium Level 9.2 Carbon Dioxide Level 28 Chloride Level 98 Creatinine 0.76 Eosinophils # 0.3 Eosinophils % 5.3 Glucose Level 105 Hematocrit 37.6 L Hemoglobin 12.4 L Lymphocytes # 1.7 Lymphocytes % 26.9 Mean Corpuscular Hemoglobin 29.6 Mean Corpuscular Hemoglobin Concent 33.0 Mean Corpuscular Volume 89.7 Mean Platelet Volume 8.5 Monocytes # 0.7 Monocytes % 10.7 Neutrophils # 3.6 Neutrophils % 56.7 Nucleated Red Blood Cells # 0.0 Nucleated Red Blood Cells % 0.0 Platelet Count 268 Potassium Level 4.2 Red Blood Count 4.19 L Red Cell Distribution Width 14.4 Sodium Level 140 White Blood Count 6.3 # Medications Medications Current Medications Lorazepam (Ativan) 1 mg Q6H PRN IV ANXIETY Last administered on 05/24/16 22:18 ; Admin Dose 1 MG; Start 05/15/16 at 06:00 Ondansetron HCl (Zofran Inj) 4 mg Q6H PRN IV NAUSEA AND/OR VOMITING Last administered on 05/19/16 21:35; Admin Dose 4 MG; Start 05/15/16 at 06:00 Diphenhydramine HCl (Benadryl) 25 mg Q6H PRN IV NAUSEA AND/OR VOMITING Last administered on 05/25/16 00:23; Admin Dose 25 MG; Start 05/15/16 at 13:00 Hydromorphone HCl (Dilaudid) 1.5 mg Q3H PRN IV PAIN Last administered on 09:58; Admin Dose 1.5 MG; Start 05/16/16 at 15:00 Metoclopramide HCl (Reglan) 10 mg Q6 IV Last administered on 05/25/16 06:43; Admin Dose 10 MG; Start 05/17/16 at 00:00 Pantoprazole (Protonix Iv) 40 mg BID@,19 IV Last administered on 05/25/16 06 :43; Admin Dose 40 MG; Start 05/17/16 at 19:00 Bisacodyl (Dulcolax Supp) 10 mg DAILY PRN [place] CONSTIPATION Last administered on 05/24/16 21:36; Admin Dose 10 MG; Start 05/18/16 at 19:00 Simethicone (Mylicon) 80 mg TID PRN PO DISTENSION/GAS/BLOATING Last administered on 05/24/16 18:08; Admin Dose 80 MG; Start 05/19/16 at 22:00 Acetaminophen (Tylenol Tab) 650 mg Q6H PRN PO PAIN AND OR ELEVATED TEMP Last administered on 05/23/16 20:26; Admin Dose 650 MG; Start 05/20/16 at 18:00 REINA AHMADI May 25, 2016 10:29
[2016-05-25] MEDS: LORAZEPAM 2 MG INJ IV PRN ×2 (11:10→21:07)
[2016-05-25] MEDS: CREON (24K-76K-120K) 1 CAP PO SCH ×2 (12:18→17:52)
[2016-05-25] MEDS: ACETAMINOPHEN 325 MG TAB PO PRN (17:52)
[2016-05-25 20:10] VITALS: BP 153/96; RESP 16
[2016-05-26] MEDS: METOCLOPRAMIDE 10 MG INJ IV SCH ×4 (00:39→17:06)
[2016-05-26] MEDS: HYDROmorphONE 2 MG/ML SYG IV PRN ×7 (01:13→21:10)
[2016-05-26] MEDS: DIPHENHYDRAMINE 50 MG INJ IV PRN ×2 (02:31→17:07)
[2016-05-26] MEDS: LORAZEPAM 2 MG INJ IV PRN ×2 (05:39→12:52)
[2016-05-26] MEDS: PANTOPRAZOLE 40 MG INJ IV SCH ×2 (06:58→18:15)
[2016-05-26 07:53] VITALS: BP 143/87; RESP 19
[2016-05-26] MEDS: CREON (24K-76K-120K) 1 CAP PO SCH ×3 (08:26→17:07)
--- NOTE | 2016-05-26 11:36 | PN ---
Date/Time of Note Date/Time of Note DATE: 05/26/16 TIME: 11:35 Assessment/Plan VTE Prophylaxis VTE Prophylaxis Intervention: other Lines/Catheters IV Catheter Type (from [facility]): Saline Lock Urinary Cath still in place: No Assessment/Plan Chief Complaint/Hosp Course 1. E. coli ESBL urinary tract infection per urinalysis, s/p treatment. 2. Dehydration, resolved. Continue IV fluids. Monitor electrolytes. 3. Acute kidney injury secondary to dehydration on top of chronic kidney disease. Continue to monitor BUN and creatinine. Dr Capellan in nephrology consult. Continue IV fluids. 4. Dementia. Continue Aricept. 5. Hypothyroidism. Continue Synthroid. 6. History of seizure disorder. Continue Keppra. 7. History of cerebrovascular accident. Continue patient on aspirin. Problems: Subjective 24 Hr Interval Summary Free Text/Dictation Patient still has abdominal pain but improved with the addition of creon Exam/Review of Systems Vital Signs Vitals Vital Signs Date Time Temp Pulse Resp B/P Pulse Ox O2 Delivery O2 Flow Rate FiO2 05/26/16 07:53 98.7 92 19 143/87 98 05/23/16 20:29 Room Air Intake and Output 05/25/16 05/25/16 05/26/16 15:00 23:00 07:00 Intake Total 400 ml Balance 400 ml Exam Constitutional: well developed Head: atraumatic, normocephalic Neck: supple Respiratory: clear to auscultation Cardiovascular: regular rate and rhythm Gastrointestinal: soft, tender Extremities: normal pulses Results Result Diagram: 05/24/16 1405 05/24/16 1405 Medications Medications Current Medications Lorazepam (Ativan) 1 mg Q6H PRN IV ANXIETY Last administered on 05/26/16 05:39 ; Admin Dose 1 MG; Start 05/15/16 at 06:00 Ondansetron HCl (Zofran Inj) 4 mg Q6H PRN IV NAUSEA AND/OR VOMITING Last administered on 05/19/16 21:35; Admin Dose 4 MG; Start 05/15/16 at 06:00 Diphenhydramine HCl (Benadryl) 25 mg Q6H PRN IV NAUSEA AND/OR VOMITING Last administered on 05/26/16 02:31; Admin Dose 25 MG; Start 05/15/16 at 13:00 Hydromorphone HCl (Dilaudid) 1.5 mg Q3H PRN IV PAIN Last administered on 08:27; Admin Dose 1.5 MG; Start 05/16/16 at 15:00 Metoclopramide HCl (Reglan) 10 mg Q6 IV Last administered on 05/26/16 05:42; Admin Dose 10 MG; Start 05/17/16 at 00:00 Pantoprazole (Protonix Iv) 40 mg BID@ IV Last administered on 05/26/16 06 :58; Admin Dose 40 MG; Start 05/17/16 at 19:00 Bisacodyl (Dulcolax Supp) 10 mg DAILY PRN [place] CONSTIPATION Last administered on 05/24/16 21:36; Admin Dose 10 MG; Start 05/18/16 at 19:00 Simethicone (Mylicon) 80 mg TID PRN PO DISTENSION/GAS/BLOATING Last administered on 05/26/16 02:33; Admin Dose 80 MG; Start 05/19/16 at 22:00 Acetaminophen (Tylenol Tab) 650 mg Q6H PRN PO PAIN AND OR ELEVATED TEMP Last administered on 05/25/16 17:52; Admin Dose 650 MG; Start 05/20/16 at 18:00 REINA AHMADI May 26, 2016 11:36
[2016-05-26] MEDS: ACETAMINOPHEN 325 MG TAB PO PRN (18:16)
[2016-05-26 19:50] VITALS: BP 133/73; RESP 16
[2016-05-26] MEDS: BISACODYL 10 MG SUPP PR PRN (21:17)
[2016-05-27] MEDS: HYDROmorphONE 2 MG/ML SYG IV PRN ×7 (00:14→22:20)
[2016-05-27] MEDS: METOCLOPRAMIDE 10 MG INJ IV SCH ×5 (00:15→23:40)
[2016-05-27] MEDS: DIPHENHYDRAMINE 50 MG INJ IV PRN ×2 (00:55→16:33)
[2016-05-27] MEDS: LORAZEPAM 2 MG INJ IV PRN ×3 (02:00→23:40)
[2016-05-27 06:15] LABS: BASOPHILS % 0.5 % (0.0-2.0); EOSINOPHILS # 0.3 10^3/ul (0.0-0.5); EOSINOPHILS % 6.5 % (0.0-7.0); HEMATOCRIT 37.4 % (42.0-52.0); HEMOGLOBIN 12.8 g/dl (14.0-18.0); LYMPHOCYTES # 1.8 10^3/ul (0.8-2.9); LYMPHOCYTES % 36.1 % (15.0-51.0); MEAN CORPUSCULAR HEMOGLOBIN 30.3 pg (29.0-33.0); MEAN CORPUSCULAR HGB CONC 34.2 g/dl (32.0-37.0); MEAN CORPUSCULAR VOLUME 88.6 fl (82.0-101.0); MEAN PLATELET VOLUME 8.8 fl (7.4-10.4); MONOCYTE # 0.5 10^3/ul (0.3-0.9); MONOCYTES % 10.5 % (0.0-11.0); NEUTROPHIL # 2.3 10^3/ul (1.6-7.5); NEUTROPHILS % 46.4 % (39.0-77.0); PLATELET COUNT 244 10^3/UL (140-440); RED BLOOD COUNT 4.22 10^6/ul (4.70-6.10); RED CELL DISTRIBUTION WIDTH 14.5 % (11.5-14.5)
[2016-05-27 06:17] LABS: POTASSIUM 4.4 mmol/L (3.5-5.1)
[2016-05-27 06:20] LABS: CREATININE 0.76 mg/dl (0.61-1.24)
[2016-05-27 06:21] LABS: CALCIUM 9.3 mg/dl (8.4-10.2)
[2016-05-27] MEDS: PANTOPRAZOLE 40 MG INJ IV SCH ×2 (06:28→18:08)
[2016-05-27 06:29] LABS: CONDITION 1; LH ANALYZER COMMENTS 1
[2016-05-27 08:23] VITALS: BP 130/83; RESP 18
[2016-05-27] MEDS: CREON (24K-76K-120K) 1 CAP PO SCH ×3 (09:35→17:59)
[2016-05-27] MEDS: ACETAMINOPHEN 325 MG TAB PO PRN (09:37)
[2016-05-27] MEDS: HYDROCODONE/APAP (5/325) TAB PO PRN ×2 (16:33→20:30)
--- NOTE | 2016-05-27 18:38 | PN ---
Date/Time of Note Date/Time of Note DATE: 05/27/16 TIME: 18:35 Assessment/Plan VTE Prophylaxis VTE Prophylaxis Intervention: SCD's Lines/Catheters IV Catheter Type (from [facility] Saline Lock Urinary Cath still in place: No Assessment/Plan Chief Complaint/Hosp Course ASSESSMENT AND PLAN: 1. Gastric outlet obstruction and duodenum per EGD. Dr. Cunha is following in gastroenterology consultation. Patient tolerates mechanical soft diet. 2. Possible mass in the head of the pancreas. Dr. Sanchez is following in general surgery consultation. Pending arrangement for outpatient EUS. 3. Possible alcoholic-induced acute pancreatitis. 4. Alcohol dependence. [employer] worker provided referral for rehab services. Anticipated discharge pain is well controlled with oral medication. Continue Protonix for peptic ulcer disease prophylaxis and sequential compression device for deep venous thrombosis prophylaxis. Further recommendations based on clinical course. Plan of care discussed with Dr. Lee. Problems: Subjective 24 Hr Interval Summary Free Text/Dictation Patient tolerates mechanical soft diet well, no nausea vomiting, , no pain is well controlled with IV medication, start [place]. Exam/Review of Systems Vital Signs Vitals Vital Signs Date Time Temp Pulse Resp B/P Pulse Ox O2 Delivery O2 Flow Rate FiO2 05/27/16 08:23 98.5 75 18 130/83 100 05/23/16 20:29 Room Air Intake and Output 05/26/16 05/26/16 05/27/16 15:00 23:00 07:00 Intake Total 800 ml 700 ml Balance 800 ml 700 ml Exam GENERAL: Well-developed, well-nourished male in no acute distress. HEENT: Head is atraumatic, normocephalic. NECK: Supple, no cervical lymphadenopathy, no thyromegaly. CHEST: Lungs clear to auscultation bilaterally. No rhonchi, wheezes, rales noted. CARDIOVASCULAR: Normal S1, S2. No murmurs, gallops, clicks noted. ABDOMEN: Round, soft, nondistended. Patient has epigastric tenderness. Bowel sounds present. EXTREMITIES: No edema, clubbing or cyanosis. Pulses equal bilaterally 2+. SKIN: There is no rash, petechiae noted. NEUROLOGIC: Patient is alert and oriented x4. No focal deficits noted. Results Result Diagram: 05/27/16 0540 05/27/16 0540 Results 24 hrs Laboratory Tests Test 05/27/16 05:40 Anion Gap 15 Basophils # 0.0 Basophils % 0.5 Blood Morphology Comment Blood Urea Nitrogen 10 Calcium Level 9.3 Carbon Dioxide Level 30 Chloride Level 99 Creatinine 0.76 Eosinophils # 0.3 Eosinophils % 6.5 Glucose Level 106 Hematocrit 37.4 L Hemoglobin 12.8 L Lymphocytes # 1.8 Lymphocytes % 36.1 Mean Corpuscular Hemoglobin 30.3 Mean Corpuscular Hemoglobin Concent 34.2 Mean Corpuscular Volume 88.6 Mean Platelet Volume 8.8 Monocytes # 0.5 Monocytes % 10.5 Neutrophils # 2.3 Neutrophils % 46.4 Nucleated Red Blood Cells # 0.0 Nucleated Red Blood Cells % 0.0 Platelet Count 244 Potassium Level 4.4 Red Blood Count 4.22 L Red Cell Distribution Width 14.5 Sodium Level 140 White Blood Count 5.0 # Medications Medications Current Medications Lorazepam (Ativan) 1 mg Q6H PRN IV ANXIETY Last administered on 05/27/16 13:35 ; Admin Dose 1 MG; Start 05/15/16 at 06:00 Ondansetron HCl (Zofran Inj) 4 mg Q6H PRN IV NAUSEA AND/OR VOMITING Last administered on 05/19/16 21:35; Admin Dose 4 MG; Start 05/15/16 at 06:00 Diphenhydramine HCl (Benadryl) 25 mg Q6H PRN IV NAUSEA AND/OR VOMITING Last administered on 05/27/16 16:33; Admin Dose 25 MG; Start 05/15/16 at 13:00 Hydromorphone HCl (Dilaudid) 1.5 mg Q3H PRN IV PAIN Last administered on 18:09; Admin Dose 1.5 MG; Start 05/16/16 at 15:00 Metoclopramide HCl (Reglan) 10 mg Q6 IV Last administered on 05/27/16 17:59; Admin Dose 10 MG; Start 05/17/16 at 00:00 Pantoprazole (Protonix Iv) 40 mg BID@07,19 IV Last administered on 05/27/16 18 :08; Admin Dose 40 MG; Start 05/17/16 at 19:00 Bisacodyl (Dulcolax Supp) 10 mg DAILY PRN [place] CONSTIPATION Last administered on 1/22/17at 21:17; Admin Dose 10 MG; Start 05/18/16 at 19:00 Simethicone (Mylicon) 80 mg TID PRN PO DISTENSION/GAS/BLOATING Last administered on 05/26/16 02:33; Admin Dose 80 MG; Start 05/19/16 at 22:00 Acetaminophen (Tylenol Tab) 650 mg Q6H PRN PO PAIN AND OR ELEVATED TEMP Last administered on 05/27/16 09:37; Admin Dose 650 MG; Start 05/20/16 at 18:00 Acetaminophen/ Hydrocodone Bitart ([place] (5/325)) 1 tab Q4H PRN PO PAIN LEVEL 4 -7 Last administered on 05/27/16 16:33; Admin Dose 1 TAB; Start 05/27/16 at 16: 00 Docusate Sodium (Colace Liquid Cup) 100 mg BID GTB ; Start 05/27/16 at 21:00 LEON TERRY May 27, 2016 18:38
[2016-05-27 19:00] VITALS: BP 125/75; RESP 16
[2016-05-27] MEDS: DOCUSATE SODIUM 10 MG/ML (10ML CUP) GTB SCH (20:30)
--- NOTE | 2016-05-27 21:30 | PN ---
Date/Time of Note Date/Time of Note DATE: 05/27/16 TIME: 21:28 Assessment/Plan Lines/Catheters IV Catheter Type (from [facility]): Saline Lock Orr in Place (from [facility]): No Assessment/Plan Assessment/Plan [facility] Inpatient Progress Note Date of Service: 05/27/2016 Today's Assessment & Plan: Overall stable with duodenal obstruction (3rd portion) with pancreas duct dilatation likely from severe chronic ETOH pancreatitis. He appears to be tolerating his oral intake and could potentially be discharged home for this outpatient endoscopic ultrasound evaluation. Once that is done, he will likely need gastric bypass as well as a Pu[place] procedure. No new issues today. Will await discharge from primary team and assist in getting patient to EUS. With above assessment, I've recommended the following for today: 1. Soft diet and saline lock IV 2. Set up for outpatient EUS eval ( my office assisting with arrangements) 3. Multidisciplinary tumor board presentation Thank you again for your great care of this very pleasant gentleman and I'm certain his wonderful family. If there are any questions, please feel free to call me at [phone]. TOTAL VISIT TIME: 20 minutes of which more than half was spent in [id number] discussion with the patient as well as coordination of care between multiple physicians and providers. Disclaimer: Inadvertent spelling and grammatical errors are likely due to EHR/ dictation software use and do not reflect on the quality of delivered patient care. Also, please note that the electronic time recorded on this node does not necessarily reflect the actual time of the visit. Updated Clinical Summary: Very pleasant 55-year-old gentleman with significant history of pancreatitis due to alcohol abuse, and a few other medical issues (see below) who was admitted initially to [facility] 05/15/2016 with evidence of chronic pancreatitis with complications of gastric outlet obstruction and pancreatic duct obstruction. Endoscopic evaluation 05/17/16 demonstrated possible issues in the second or third portion of duodenum. MRCP 05/18/16 showed irregular dilatation of the majority the pancreatic duct extending to the pancreatic head/uncinate process with soft tissue fullness and surrounding fat stranding involving the third segment of the duodenum where there is focal narrowing and dilatation of the proximal duodenum, worrisome for either inflammatory or neoplastic stricture of the duodenum and associated obstruction of the pancreatic duct without cholelithiasis or choledocholithiasis or intrahepatic biliary ductal dilatation. CT abd/pelvis with contrast 05/19/16 showed substantial amount of residual barium within the colon which results in a tremendous amount of artifact degrading many of the images. Suggestion of an infiltrating mass involving the head of the pancreas extending into the retroperitoneal and possibly additional adenopathy. The pancreatic duct is dilated to 7.4 mm within the body and tail. The mass extends into the suspected region of the duodenum as well as the retroperitoneum. Cannot rule out malignancy and requires to have EUS eval prior to operative intervention ( surgical bypass +/- Pu[place]). I asked my office to assist with arranging outpatient endoscopic ultrasound evaluation for the patient. Past and present comorbidity list: 1. EtOH pancreatitis with several visits to healthcare centers per year 2. Chronic back pain 3. Anxiety neck slight 4. Panic attacks 5. Gastritis Subjective: No major events or complaints; no sig abd pain and under control with medications; no n/v/d; no sob or cp; + flatus; + BM; + activity; tolerated regular diet without nausea or vomiting and still having bowel movements. Objective: Vitals: See below Exam: GENERAL: On exam, the patient was laying in bed and appeared to be comfortable and in no acute distress. ABDOMEN: Soft, nontender and nondistended. There are no peritoneal signs or guarding. SKIN: Skin appears to be pink and feels warm to touch. NEUROLOGIC: Patient is awake, alert, and follows commands appropriately. Exam/Review of Systems Vital Signs Vitals Vital Signs Date Time Temp Pulse Resp B/P Pulse Ox O2 Delivery O2 Flow Rate FiO2 05/27/16 19:00 98.3 88 16 125/75 97 05/23/16 20:29 Room Air Intake and Output 05/26/16 05/26/16 05/27/16 15:00 23:00 07:00 Intake Total 800 ml 700 ml Balance 800 ml 700 ml Results Result Diagram: 05/27/16 0540 05/27/16 0540 MAGDALENO KANG M.D. May 27, 2016 21:30
[2016-05-28] MEDS: HYDROCODONE/APAP (5/325) TAB PO PRN ×3 (01:02→21:46)
[2016-05-28] MEDS: DIPHENHYDRAMINE 50 MG INJ IV PRN ×3 (02:02→22:15)
[2016-05-28] MEDS: PANTOPRAZOLE 40 MG INJ IV SCH ×2 (06:34→18:16)
[2016-05-28] MEDS: METOCLOPRAMIDE 10 MG INJ IV SCH ×4 (06:35→23:41)
[2016-05-28 07:54] VITALS: BP 143/75; RESP 16
[2016-05-28] MEDS: HYDROmorphONE 2 MG/ML SYG IV PRN ×4 (07:56→23:41)
[2016-05-28] MEDS: CREON (24K-76K-120K) 1 CAP PO SCH ×3 (07:56→18:10)
[2016-05-28] MEDS: DOCUSATE SODIUM 10 MG/ML (10ML CUP) GTB SCH ×2 (08:00→20:03)
[2016-05-28 08:28] LABS: BASOPHILS % 0.3 % (0.0-2.0); EOSINOPHILS # 0.3 10^3/ul (0.0-0.5); EOSINOPHILS % 3.7 % (0.0-7.0); HEMATOCRIT 36.9 % (42.0-52.0); HEMOGLOBIN 12.5 g/dl (14.0-18.0); LYMPHOCYTES # 1.5 10^3/ul (0.8-2.9); LYMPHOCYTES % 19.1 % (15.0-51.0); MEAN CORPUSCULAR HEMOGLOBIN 30.1 pg (29.0-33.0); MEAN CORPUSCULAR HGB CONC 33.9 g/dl (32.0-37.0); MEAN CORPUSCULAR VOLUME 88.8 fl (82.0-101.0); MEAN PLATELET VOLUME 9.2 fl (7.4-10.4); MONOCYTE # 0.5 10^3/ul (0.3-0.9); MONOCYTES % 5.9 % (0.0-11.0); NEUTROPHIL # 5.5 10^3/ul (1.6-7.5); PLATELET COUNT 261 10^3/UL (140-440); RED BLOOD COUNT 4.15 10^6/ul (4.70-6.10); RED CELL DISTRIBUTION WIDTH 14.6 % (11.5-14.5); UNCORRECTED WBC 7.7 10^3/ul (4.8-10.8); WHITE BLOOD COUNT 7.7 10^3/ul (4.8-10.8)
[2016-05-28 08:34] LABS: POTASSIUM 4.1 mmol/L (3.5-5.1)
[2016-05-28 08:37] LABS: CONDITION 1; CREATININE 0.75 mg/dl (0.61-1.24); LH ANALYZER COMMENTS 1
[2016-05-28 08:38] LABS: CALCIUM 9.6 mg/dl (8.4-10.2)
[2016-05-28] MEDS: LORAZEPAM 2 MG INJ IV PRN ×2 (09:08→18:10)
--- NOTE | 2016-05-28 18:57 | PN ---
Date/Time of Note Date/Time of Note DATE: 05/28/16 TIME: 18:56 Assessment/Plan VTE Prophylaxis VTE Prophylaxis Intervention: SCD's Lines/Catheters [facility] Saline Lock Urinary Cath still in place: No Assessment/Plan Chief Complaint/Hosp Course ASSESSMENT AND PLAN: 1. Gastric outlet obstruction and duodenum per EGD. Dr. Cunha is following in gastroenterology consultation. Patient tolerates mechanical soft diet. 2. Possible mass in the head of the pancreas. Dr. Sanchez is following in general surgery consultation. Pending arrangement for outpatient EUS. 3. Possible alcoholic-induced acute pancreatitis. 4. 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 Anticipated discharge pain is well controlled with oral medication. Continue Protonix for peptic ulcer disease prophylaxis and sequential compression device for deep venous thrombosis prophylaxis. Further recommendations based on clinical course. Plan of care discussed with Dr. Lee. Problems: Subjective 24 Hr Interval Summary Free Text/Dictation Patient denies any nausea vomiting, tolerates mechanical soft diet well. Exam/Review of Systems Vital Signs Vitals Vital Signs Date Time Temp Pulse Resp B/P Pulse Ox O2 Delivery O2 Flow Rate FiO2 05/28/16 07:54 98.1 75 16 143/75 97 Intake and Output 05/27/16 05/27/16 05/28/16 15:00 23:00 07:00 Intake Total 720 ml Balance 720 ml Exam GENERAL: Well-developed, well-nourished male in no acute distress. HEENT: Head is atraumatic, normocephalic. NECK: Supple, no cervical lymphadenopathy, no thyromegaly. CHEST: Lungs clear to auscultation bilaterally. No rhonchi, wheezes, rales noted. CARDIOVASCULAR: Normal S1, S2. No murmurs, gallops, clicks noted. ABDOMEN: Round, soft, nondistended. Patient has epigastric tenderness. Bowel sounds present. EXTREMITIES: No edema, clubbing or cyanosis. Pulses equal bilaterally 2+. SKIN: There is no rash, petechiae noted. NEUROLOGIC: Patient is alert and oriented x4. No focal deficits noted. Results Result Diagram: 05/28/16 0742 05/28/16 0742 Results 24 hrs Laboratory Tests Test 05/28/16 07:42 Anion Gap 17 H Basophils # 0.0 Basophils % 0.3 Blood Morphology Comment Blood Urea Nitrogen 12 Calcium Level 9.6 Carbon Dioxide Level 27 Chloride Level 100 Creatinine 0.75 Eosinophils # 0.3 Eosinophils % 3.7 Glucose Level 120 Hematocrit 36.9 L Hemoglobin 12.5 L Lymphocytes # 1.5 Lymphocytes % 19.1 Mean Corpuscular Hemoglobin 30.1 Mean Corpuscular Hemoglobin Concent 33.9 Mean Corpuscular Volume 88.8 Mean Platelet Volume 9.2 Monocytes # 0.5 Monocytes % 5.9 Neutrophils # 5.5 Neutrophils % 71.0 Nucleated Red Blood Cells # 0.0 Nucleated Red Blood Cells % 0.0 Platelet Count 261 Potassium Level 4.1 Red Blood Count 4.15 L Red Cell Distribution Width 14.6 H Sodium Level 140 White Blood Count 7.7 # Medications Medications Current Medications Lorazepam (Ativan) 1 mg Q6H PRN IV ANXIETY Last administered on 05/28/16 18:10 ; Admin Dose 1 MG; Start 05/15/16 at 06:00 Ondansetron HCl (Zofran Inj) 4 mg Q6H PRN IV NAUSEA AND/OR VOMITING Last administered on 05/19/16 21:35; Admin Dose 4 MG; Start 05/15/16 at 06:00 Diphenhydramine HCl (Benadryl) 25 mg Q6H PRN IV NAUSEA AND/OR VOMITING Last administered on 05/28/16 16:14; Admin Dose 25 MG; Start 05/15/16 at 13:00 Hydromorphone HCl (Dilaudid) 1.5 mg Q3H PRN IV PAIN Last administered on 15:06; Admin Dose 1.5 MG; Start 05/16/16 at 15:00 Metoclopramide HCl (Reglan) 10 mg Q6 IV Last administered on 05/28/16 11:42; Admin Dose 10 MG; Start 05/17/16 at 00:00 Pantoprazole (Protonix Iv) 40 mg BID@,19 IV Last administered on 05/28/16 18 :16; Admin Dose 40 MG; Start 05/17/16 at 19:00 Bisacodyl (Dulcolax Supp) 10 mg DAILY PRN [place] CONSTIPATION Last administered on 05/26/16 21:17; Admin Dose 10 MG; Start 05/18/16 at 19:00 Simethicone (Mylicon) 80 mg TID PRN PO DISTENSION/GAS/BLOATING Last administered on 05/26/16 02:33; Admin Dose 80 MG; Start 05/19/16 at 22:00 Acetaminophen (Tylenol Tab) 650 mg Q6H PRN PO PAIN AND OR ELEVATED TEMP Last administered on 05/27/16 09:37; Admin Dose 650 MG; Start 05/20/16 at 18:00 Acetaminophen/ Hydrocodone Bitart ([place] (5/325)) 1 tab Q4H PRN PO PAIN LEVEL 4 -7 Last administered on 05/28/16 13:37; Admin Dose 1 TAB; Start 05/27/16 at 16: 00 Docusate Sodium (Colace Liquid Cup) 100 mg BID GTB Last administered on 08:00; Admin Dose 100 MG; Start 05/27/16 at 21:00 LEON TERRY May 28, 2016 18:57
[2016-05-28 19:00] VITALS: BP 138/86; RESP 18
[2016-05-29] MEDS: LORAZEPAM 2 MG INJ IV PRN ×2 (00:46→14:45)
[2016-05-29] MEDS: METOCLOPRAMIDE 10 MG INJ IV SCH ×3 (06:00→17:03)
[2016-05-29] MEDS: PANTOPRAZOLE 40 MG INJ IV SCH (07:00)
[2016-05-29 07:59] VITALS: BP 141/77; RESP 20
[2016-05-29] MEDS: DOCUSATE SODIUM 10 MG/ML (10ML CUP) GTB SCH (08:23)
[2016-05-29] MEDS: CREON (24K-76K-120K) 1 CAP PO SCH ×3 (08:23→17:03)
[2016-05-29] MEDS: HYDROmorphONE 2 MG/ML SYG IV PRN ×3 (09:25→17:03)
[2016-05-29] MEDS: DIPHENHYDRAMINE 50 MG INJ IV PRN (10:21)
[2016-05-29] MEDS: HYDROCODONE/APAP (5/325) TAB PO PRN (12:02)
--- NOTE | 2016-05-29 17:20 | PN ---
Date/Time of Note Date/Time of Note DATE: 05/29/16 TIME: 17:19 Assessment/Plan Lines/Catheters IV Catheter Type (from [facility]): Saline Lock Orr in Place (from [facility]): No Assessment/Plan Assessment/Plan [facility] Inpatient Progress Note Date of Service: 05/29/2016 Today's Assessment & Plan: Overall stable with duodenal obstruction (3rd portion) with pancreas duct dilatation likely from severe chronic ETOH pancreatitis. No major change and he still appears to be tolerating his oral intake and could potentially be discharged home for this outpatient endoscopic ultrasound evaluation. Once that is done, he will likely need gastric bypass as well as a Puestow procedure. No new issues today. Will await discharge from primary team and assist in getting patient to EUS. With above assessment, I've recommended the following for today: 1. Cont soft diet and saline lock IV 2. Set up for outpatient EUS eval ( my office assisting with arrangements) 3. Multidisciplinary tumor board presentation Thank you again for your great care of this very pleasant gentleman and I'm certain his wonderful family. If there are any questions, please feel free to call me at [phone]. TOTAL VISIT TIME: 20 minutes of which more than half was spent in [id number] discussion with the patient as well as coordination of care between multiple physicians and providers. Disclaimer: Inadvertent spelling and grammatical errors are likely due to EHR/ dictation software use and do not reflect on the quality of delivered patient care. Also, please note that the electronic time recorded on this node does not necessarily reflect the actual time of the visit. Updated Clinical Summary: Very pleasant 55-year-old gentleman with significant history of pancreatitis due to alcohol abuse, and a few other medical issues (see below) who was admitted initially to [facility] 05/15/2016 with evidence of chronic pancreatitis with complications of gastric outlet obstruction and pancreatic duct obstruction. Endoscopic evaluation 05/17/16 demonstrated possible issues in the second or third portion of duodenum. MRCP 05/18/16 showed irregular dilatation of the majority the pancreatic duct extending to the pancreatic head/uncinate process with soft tissue fullness and surrounding fat stranding involving the third segment of the duodenum where there is focal narrowing and dilatation of the proximal duodenum, worrisome for either inflammatory or neoplastic stricture of the duodenum and associated obstruction of the pancreatic duct without cholelithiasis or choledocholithiasis or intrahepatic biliary ductal dilatation. CT abd/pelvis with contrast 05/19/16 showed substantial amount of residual barium within the colon which results in a tremendous amount of artifact degrading many of the images. Suggestion of an infiltrating mass involving the head of the pancreas extending into the retroperitoneal and possibly additional adenopathy. The pancreatic duct is dilated to 7.4 mm within the body and tail. The mass extends into the suspected region of the duodenum as well as the retroperitoneum. Cannot rule out malignancy and requires to have EUS eval prior to operative intervention ( surgical bypass +/- Puestow). I asked my office to assist with arranging outpatient endoscopic ultrasound evaluation for the patient. Past and present comorbidity list: 1. EtOH pancreatitis with several visits to healthcare centers per year 2. Chronic back pain 3. Anxiety neck slight 4. Panic attacks 5. Gastritis Subjective: No major events or complaints; no sig abd pain and under control with medications; no n/v/d; no sob or cp; + flatus; + BM; + activity; on regular diet without nausea or vomiting and still having bowel movements. Objective: Vitals: See below Exam: GENERAL: On exam, the patient was laying in bed and appeared to be comfortable and in no acute distress. ABDOMEN: Soft, nontender and nondistended. There are no peritoneal signs or guarding. SKIN: Skin appears to be pink and feels warm to touch. NEUROLOGIC: Patient is awake, alert, and follows commands appropriately. Exam/Review of Systems Vital Signs Vitals Vital Signs Date Time Temp Pulse Resp B/P Pulse Ox O2 Delivery O2 Flow Rate FiO2 05/29/16 07:59 98.1 72 20 141/77 100 Intake and Output 05/28/16 05/28/16 05/29/16 15:00 23:00 07:00 Intake Total 880 ml 600 ml Balance 880 ml 600 ml Results Result Diagram: 05/28/16 0742 05/28/16 0742 MAGDALENO KANG M.D. May 29, 2016 17:20
[2016-05-29] MEDS ORDERED: LIPA1CAP6 PO (17:47)
[2016-05-29] MEDS ORDERED: LORA2VIA3 IV (17:47)
[2016-05-29] MEDS ORDERED: HYDR-3498 PO (17:47)
[2016-05-29] MEDS ORDERED: BEN25 PO (17:47)
[2016-05-29] MEDS ORDERED: PANTOPRAZOLE (EC) 40 MG TAB PO SCH (18:00)
== END 2016-05-29 18:55 | disposition home or self-care (01) | DRG 439 ==
LOC: E/R 22:41 → MS2 05-15 03:34
PROVIDERS: ADMIT Internal Medicine; ATTEND Internal Medicine
PROC: 0DJ08ZZ Inspection of Upper Intestinal Tract, Via Natural or Artificial Opening Endoscopic (ICD-10-PCS; principal; 2016-05-17 10:30)
DX: K85.20 Alcohol induced acute pancreatitis without necrosis or infection (principal); K31.1 Adult hypertrophic pyloric stenosis; N17.9 Acute kidney failure, unspecified; F03.90 Unspecified dementia, unspecified severity, without behavioral disturbance, psychotic disturbance, mood disturbance, and anxiety; K31.5 Obstruction of duodenum; N39.0 Urinary tract infection, site not specified; K29.70 Gastritis, unspecified, without bleeding; B96.20 Unspecified Escherichia coli [E. coli] as the cause of diseases classified elsewhere; E86.0 Dehydration; F10.20 Alcohol dependence, uncomplicated; M54.9 Dorsalgia, unspecified; G89.29 Other chronic pain; F41.9 Anxiety disorder, unspecified; F41.0 Panic disorder [episodic paroxysmal anxiety]; G40.909 Epilepsy, unspecified, not intractable, without status epilepticus; Z86.73 Personal history of transient ischemic attack (TIA), and cerebral infarction without residual deficits; E03.9 Hypothyroidism, unspecified
CPT/HCPCS: 36415; 71010; 74000; 74176; 74177; 74181; 74240; 80048; 80053; 81003; 82150; 83690; 84484; 85025; 86301; 87081; 90686; 93005; 96374; 96375; 96376; C9113; J1170; J1200; J2060; J2270; J2405; J2765; J3010; J3411; J3480; J7030; J7040; Q9967

== ENCOUNTER 2016-06-11 17:06 | Emergency (ER) | payer OTHER ==
[~2016-06-11] VITALS: Wt 65.0 kg
[~2016-06-11 17:06] MED LIST changes: +BEN25 PO; -CHLO25CA9 PO; -FOLI-49 PO; +HYDR-3498 PO; +LORA2VIA3 IV; -MULTI PO; -MYL80 PO; -THIA100T10 PO; -TRAM50TA2 PO
[2016-06-11] MEDS ORDERED: BELLADONNA/PHENOBARBITAL TAB PO STA (20:26)
[2016-06-11] MEDS ORDERED: FAMOTIDINE 20 MG TAB PO STA (20:26)
[2016-06-11] MEDS ORDERED: ONDANSETRON 4 MG INJ IV STA (20:26)
[2016-06-11] MEDS ORDERED: morphine 4 MG/ML VIAL IV STA (20:26)
[2016-06-11] MEDS ORDERED: SOD CHLORIDE 0.9% 1,000 ML IV STA (20:26)
[2016-06-11] MEDS ORDERED: LIDOCAINE/MYLANTA 40 ML BTL PO STA (20:26)
[2016-06-11 20:49] LABS: BASOPHILS % 0.3 % (0.0-2.0); EOSINOPHILS # 0.3 10^3/ul (0.0-0.5); EOSINOPHILS % 3.5 % (0.0-7.0); HEMATOCRIT 39.5 % (42.0-52.0); HEMOGLOBIN 13.3 g/dl (14.0-18.0); LYMPHOCYTES # 1.8 10^3/ul (0.8-2.9); MEAN CORPUSCULAR HEMOGLOBIN 30.2 pg (29.0-33.0); MEAN CORPUSCULAR HGB CONC 33.7 g/dl (32.0-37.0); MEAN CORPUSCULAR VOLUME 89.8 fl (82.0-101.0); MEAN PLATELET VOLUME 8.2 fl (7.4-10.4); MONOCYTE # 0.7 10^3/ul (0.3-0.9); MONOCYTES % 7.4 % (0.0-11.0); NEUTROPHIL # 6.6 10^3/ul (1.6-7.5); NEUTROPHILS % 69.8 % (39.0-77.0); PLATELET COUNT 252 10^3/UL (140-440); RED CELL DISTRIBUTION WIDTH 14.5 % (11.5-14.5); UNCORRECTED WBC 9.4 10^3/ul (4.8-10.8); WHITE BLOOD COUNT 9.4 10^3/ul (4.8-10.8)
[2016-06-11 20:52] LABS: ALBUMIN 4.5 g/dl (3.3-4.9); CONDITION 1
[2016-06-11 20:53] LABS: POTASSIUM 4.1 mmol/L (3.5-5.1)
[2016-06-11 20:55] LABS: BILIRUBIN,INDIRECT 0.4 mg/dl (0-1.1); BILIRUBIN,TOTAL 0.4 mg/dl (0.2-1.3); CREATININE 0.81 mg/dl (0.61-1.24)
[2016-06-11 20:56] LABS: ALBUMIN/GLOBULIN RATIO 1.25; CALCIUM 9.5 mg/dl (8.4-10.2); TOTAL PROTEIN 8.1 g/dl (6.1-8.1)
[2016-06-11] MEDS ORDERED: TRAM50TA2 PO (21:27)
[2016-06-11] MEDS ORDERED: MAG355OR14 PO (21:27)
[2016-06-11] MEDS ORDERED: FAMO40TA52 PO (21:27)
[2016-06-11] MEDS ORDERED: ONDA4TAB14 PO (21:27)
--- NOTE | 2016-06-11 21:31 | ERD ---
ER Documentation Chief Complaint Date/Time DATE: 06/11/16 TIME: 21:29 Chief Complaint lower abd pain for the past few days. n/v . mild diarrhea HPI 55-year-old man has continued lower abdominal pain and nausea with clear nonbilious and bloody emesis with intermittent loose stools. Patient has a long history of these symptoms and has a history of alcoholism, alcoholic gastritis, recurrent pancreatitis, recurrent vomiting, and recurrent chronic abdominal pain. He denies hematuria, melena, or blood per rectum, no fevers or chills, no complaints of chest pain or shortness of breath. Patient has had recent EGD which revealed gastritis and partial duodenal obstruction. 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 ROS All systems reviewed and are negative except as per history of present illness. Medications Home Meds Active Scripts Mag Hydrox/Al Hydrox/Simeth (Maalox Advanced Suspension) 355 Ml Oral.susp, 2 TSP PO TID for PAIN, #24 OZ Prov:ALIN AGUILAR MD 06/11/16 Tramadol HCl (Tramadol HCl) 50 Mg Tablet, 50 MG PO TID for PAIN LEVEL 6-10, #12 TAB Prov:ALIN AGUILAR MD 06/11/16 Ondansetron (Ondansetron Odt) 4 Mg Tab.rapdis, 4 MG PO TID for VOMITTING, #30 TAB Prov:ALIN AGUILAR MD 06/11/16 Famotidine* (Famotidine*) 40 Mg Tablet, 40 MG PO HS, #30 TAB Prov:ALIN AGUILAR MD 06/11/16 Diphenhydramine Hcl* (Benadryl*) 25 Mg Cap, 25 MG PO Q6H Y for ITCHING, #30 CAP Prov:LEON TERRY 05/29/16 Lorazepam (Lorazepam) 2 Mg/1 Ml Vial, 1 MG IV Q6H Y for ANXIETY, #30 VIAL Prov:LEON TERRY 05/29/16 Hydrocodone Bit-Acetaminophen (Hydrocodone Bit-APAP) 5-325MG Tablet, 1 TAB PO Q4H Y for PAIN LEVEL 4-7, #30 TAB Prov:LEON TERRY 05/29/16 Iiwybn-Lgmsrhpm-Lesauoc* (Stephanie DR* 24,000) 24,000 L-76,000-120,000 Unit Capsule.dr, 1 CAP PO WITH MEALS for 30 Days, CAP Prov:LEON TERRY 05/29/16 Reported Medications Metoclopramide Hcl* (Metoclopramide Hcl*) 10 Mg Tablet, 10 MG PO TID Y for NAUSEA AND/OR VOMITING, TAB 04/24/16 Pantoprazole* (Protonix*) 40 Mg Tablet.dr, 40 MG PO DAILY, TAB 03/12/15 Allergies Allergies: Coded Allergies: No Known Allergy (Unverified , 06/11/16) PMhx/Soc Chronic recurrent abdominal pain, history of pancreatitis, partial obstruction of the duodenum diagnosed on recent esophagogastroduodenoscopy, alcohol abuse, previous pancreatitis, gastritis, anxiety History of Surgery: No Anesthesia Reaction: No Hx Neurological Disorder: No Hx Respiratory Disorders: No Hx Cardiac Disorders: No Hx Psychiatric Problems: Yes (PANIC ATTACKS/ANXIETY) Hx Alcohol Use: Yes (05/05/16) Hx Substance Use: No Hx Tobacco Use: No Smoking Status: Former smoker FmHx Family History: diabetes Physical Exam Vitals Vital Signs Date Time Temp Pulse Resp B/P Pulse Ox O2 Delivery O2 Flow Rate FiO2 06/11/16 22:17 76 20 116/78 Room Air 06/11/16 21:56 98.4 91 16 126/92 100 Room Air 06/11/16 17:13 98.8 112 21 109/73 99 Physical Exam GENERAL: Well-developed, well-nourished, well-hydrated, in no apparent distress , looks nontoxic in appearance HEENT: Moist mucous membranes, pink conjunctiva, no cervical spine tenderness or step-off deformities, no goiter, no jaundice or icterus, extraocular movements intact without pain. No submandibular induration, and no pharyngeal erythema NEURO: Alert and oriented 3, cranial nerves II through XII intact bilaterally, pupils equal round reactive to light, no focal deficits or facial asymmetry, sensation intact distally Strength 5/5 in upper and lower extremities bilaterally CARDIAC: Regular rate and rhythm, no murmurs rubs or gallops LUNGS: Clear bilaterally no wheezing crackles or stridor ABDOMEN: Soft nontender, no guarding, no rigidity, no rebound, no psoas sign no obturator sign. Normoactive bowel sounds SKIN: Warm and dry to touch, no abrasions, contusions, or hematomas, no lacerations, no ecchymosis, no target lesions, and without ulcers EXTREMITIES: No clubbing cyanosis or edema, calves are bilaterally symmetrical, no Homans sign, no popliteal cord sign. Distal pulses equal and bilateral PSYCH: Normal affect without agitation or irritability Result Diagram: 06/11/16194706/11/161947 Results 24 hrs Laboratory Tests Test 06/11/16 19:48 Alanine Aminotransferase (ALT/SGPT) 23IU/L Albumin 4.5g/dl Albumin/Globulin Ratio 1.25 Alkaline Phosphatase 91IU/L Anion Gap 19 Aspartate Amino Transf (AST/SGOT) 23IU/L Basophils # 0.010^3/ul Basophils % 0.3% Blood Urea Nitrogen 9mg/dl Calcium Level 9.5mg/dl Carbon Dioxide Level 31mmol/L Chloride Level 94mmol/L Creatinine 0.81mg/dl Direct Bilirubin 0.00mg/dl Eosinophils # 0.310^3/ul Eosinophils % 3.5% Globulin 3.60g/dl Glucose Level 111mg/dl Hematocrit 39.5% Hemoglobin 13.3g/dl Indirect Bilirubin 0.4mg/dl Lipase 540U/L Lymphocytes # 1.810^3/ul Lymphocytes % 19.0% Mean Corpuscular Hemoglobin 30.2pg Mean Corpuscular Hemoglobin Concent 33.7g/dl Mean Corpuscular Volume 89.8fl Mean Platelet Volume 8.2fl Monocytes # 0.710^3/ul Monocytes % 7.4% Neutrophils # 6.610^3/ul Neutrophils % 69.8% Nucleated Red Blood Cells # 0.010^3/ul Nucleated Red Blood Cells % 0.0/100WBC Platelet Count 74749^3/UL Potassium Level 4.1mmol/L Red Blood Count 4.4010^6/ul Red Cell Distribution Width 14.5% Sodium Level 140mmol/L Total Bilirubin 0.4mg/dl Total Protein 8.1g/dl White Blood Count 9.410^3/ul Current Medications Medications (Trade) Dose Ordered Sig/Broderick Route PRN Reason Start Time Stop Time Status Last Admin Dose Admin Sodium Chloride (NS) 1,000 ml @ 1,000 mls/hr Q1H STAT IV 06/11/16 20:26 06/11/16 21:25 DC 06/11/16 21:17 Morphine Sulfate (morphine) 4 mg ONCE STAT IV 06/11/16 20:26 06/11/16 20:27 DC 06/11/16 21:17 Ondansetron HCl (Zofran Inj) 4 mg ONCE STAT IV 06/11/16 20:26 06/11/16 20:27 DC 06/11/16 21:17 Famotidine (Pepcid) 40 mg ONCE STAT PO 06/11/16 20:26 06/11/16 20:27 DC 06/11/16 21:17 Miscellaneous Medication (Gi Cocktail (2)) 40 ml ONCE STAT PO 06/11/16 20:26 06/11/16 20:27 DC 06/11/16 21:17 Belladonna/ Phenobarbital () 2 tab ONCE STAT PO 06/11/16 20:26 06/11/16 20:27 DC 06/11/16 21:17 Procedures/MDM IV line was established patient was placed on lunchroom monitor rhythm strip revealed a sinus rhythm at about 70 bpm with upright P and T waves. Patient was afebrile. I reviewed the patient's extensive past medical history, medical records, and recent imaging studies. I administered 1 L normal saline intravenously, Zofran 4 mg IV, morphine 4 mg IV , GI cocktail 50 cc p.o., famotidine 40 mg p.o. which he tolerated. CBC and electrolytes were unremarkable, liver function tests were normal, lipase was elevated at over 500. Patient's vital signs are normal at this time and is able to tolerate p.o. without difficulty I will discharge him with oral medications and antiemetics until he can follow-up with his PMD and pain specialist. I also recommended complete alcohol abstinence. Differential diagnoses considered, included but not limited to acute coronary syndrome, pulmonary embolism, aortic dissection, abdominal aortic aneurysm, sepsis, stroke, meningitis, encephalitis, pneumonia, appendicitis, cholecystitis , bowel obstruction, pyelonephritis, nephrolithiasis, cystitis, as well as metabolic, hematologic, and electrolyte abnormalities. As well as abscess, cellulitis, fractures, and dislocations. Patient feels much better at this time, and vital signs are normal, symptoms have improved. I did give strict instructions to return to the ED if symptoms continue or worsen, patient will otherwise follow-up with primary care physician. Patient understood instructions and agreed to plan. Departure Diagnosis: Primary Impression: Chronic abdominal pain Additional Impressions: Elevated lipase Vomiting Vomiting type: unspecified Vomiting Intractability: non-intractable Nausea presence: with nausea Qualified Code: R11.2 - Non-intractable vomiting with nausea, unspecified vomiting type Condition: Good Patient Instructions: Gastritis (Adult), Vomiting (6Y-Adult) ALIN AGUILAR MD Jun 11, 2016 21:31
[2016-06-11 21:56] VITALS: TEMP 98.4
[2016-06-11 22:17] VITALS: BP 116/78; PULSE 76; RESP 20
== END 2016-06-11 22:19 | disposition home or self-care (01) ==
LOC: E/R 17:06
DX: R10.30 Lower abdominal pain, unspecified (principal); R74.8 Abnormal levels of other serum enzymes; R11.2 Nausea with vomiting, unspecified; Z87.891 Personal history of nicotine dependence
CPT/HCPCS: 36415; 80053; 83690; 85025; 96374; 96375; J2270; J2405; J7030; Z7502; Z7610

== ENCOUNTER 2017-02-09 04:32 | Emergency (ER) | payer OTHER ==
[~2017-02-09] VITALS: Ht 180.3 cm; Wt 68.2 kg
[~2017-02-09 04:32] MED LIST changes: +FAMO40TA52 PO; +MAG355OR14 PO; +ONDA4TAB14 PO; +TRAM50TA2 PO
[2017-02-09 04:36] VITALS: Ht 180.3 cm; Wt 68.2 kg
[2017-02-09] MEDS ORDERED: SOD CHLORIDE 0.9% 1,000 ML IV STA (04:56)
[2017-02-09] MEDS ORDERED: ONDANSETRON 4 MG INJ IV STA ×2 (04:56→09:14)
[2017-02-09] MEDS ORDERED: morphine 2 MG INJ IV STA (04:56)
[2017-02-09 05:20] LABS: BASOPHILS % 0.4 % (0.0-2.0); EOSINOPHILS # 0.1 10^3/ul (0.0-0.5); EOSINOPHILS % 1.1 % (0.0-7.0); HEMATOCRIT 36.7 % (42.0-52.0); HEMOGLOBIN 12.4 g/dl (14.0-18.0); LYMPHOCYTES # 0.9 10^3/ul (0.8-2.9); LYMPHOCYTES % 8.6 % (15.0-51.0); MEAN CORPUSCULAR HGB CONC 33.8 g/dl (32.0-37.0); MEAN CORPUSCULAR VOLUME 91.8 fl (82.0-101.0); MEAN PLATELET VOLUME 10.5 fl (7.4-10.4); MONOCYTE # 0.9 10^3/ul (0.3-0.9); MONOCYTES % 8.3 % (0.0-11.0); NEUTROPHIL # 8.9 10^3/ul (1.6-7.5); NEUTROPHILS % 81.3 % (39.0-77.0); PLATELET COUNT 464 10^3/UL (140-415); RED CELL DISTRIBUTION WIDTH 12.9 % (11.5-14.5)
[2017-02-09 05:43] LABS: ALANINE AMINOTRANSFERASE 41 IU/L (13-69); ALBUMIN 3.9 g/dl (3.3-4.9); ALBUMIN/GLOBULIN RATIO 1.05; ALKALINE PHOSPHATASE 130 IU/L (42-121); ANION GAP 16 (8-16); ASPARTATE AMINO TRANSFERASE 32 IU/L (15-46); BILIRUBIN,INDIRECT 0.2 mg/dl (0-1.1); BILIRUBIN,TOTAL 0.2 mg/dl (0.2-1.3); BLOOD UREA NITROGEN 7 mg/dl (7-20); CALCIUM 10.2 mg/dl (8.4-10.2); CARBON DIOXIDE 29 mmol/L (21-31); CHLORIDE 98 mmol/L (97-110); CREATININE 1.04 mg/dl (0.61-1.24); GLUCOSE 153 mg/dl (70-220); SODIUM 139 mmol/L (135-144); TOTAL PROTEIN 7.6 g/dl (6.1-8.1)
--- NOTE | 2017-02-09 05:54 | RADRPT ---
PROCEDURE: CT abdomen and pelvis without contrast. CLINICAL INDICATION: Nausea. Abdominal pain. Recent insertion pancreatic duct. TECHNIQUE: CT scan of the abdomen and pelvis without contrast was performed and is reconstructed a t 2.5 mm contiguous axial intervals from the dome of the diaphragm to the inferior pubic rami.. The patient was scanned without intravenous contrast. Sagittal and coronal reformatted images were obt ained from the axial source images. The calculated radiation dose measures 420 mGy centimeters. The CTDI measures 7 mGy. Individualized dose optimization technique was used for the performance of this exam. This included 1. Automated exposure control. 2. Adjustment of the mA and / or kV according to the patient's size. 3. Use of iterative reconstructed technique. COMPARISON: CT abdomen pelvis October,. FINDINGS: The lung bases are clear of any infiltrate or nodule. No effusion is seen. The liver is of normal size, contour and attenuation with no mass or ductal dilatation. Noted is a p lastic biliary endoprosthesis extending from the bile duct into the duodenum. No gallstones are vi sualized. no splenic or adrenal abnormality. Pancreas is diffusely enlarged and the margins are poo rly delineated. No discrete mass is visualized. There is infiltration of the fat surrounding the samuel creas. No hemorrhage or extraluminal gas is seen. These are consistent with pancreatitis. Kidneys are of normal size and contour. No hydronephrosis or masses seen. Nonobstructing stone in the lower pole of the right kidney. Ureters are of normal course and caliber with no stone. No niraj dder mass or stone is present. Vesicles are normal. There is no aneurysm. No adenopathy is present. No bowel mass or obstruction is present. The appendix is normal. No pneumoperitoneum is visualiz ed. The osseous structures are intact. IMPRESSION: Diffuse edema of the pancreas with infiltration of surrounding fat consistent with acute pancreatiti s. No stones visualized. Nonobstructing right renal calculus. Plastic biliary stent. .Amado Montesinos MD, Date Time Electronically viewed and signed by .Amado Montesinos MD, on 02/09/2017 05:54 .A/
[2017-02-09 05:55] LABS: TROPONIN-I < 0.012 ng/ml (0.00-0.12)
[2017-02-09 05:56] LABS: ADD UMIC NO; UR ASCORBIC ACID NEGATIVE (NEGATIVE); UR BACTERIA FEW /HPF (NONE SEEN); UR BILIRUBIN (Dip) NEGATIVE (NEGATIVE); UR BLOOD (Dip) NEGATIVE (NEGATIVE); UR CLARITY SLIGHTLY CLOUDY (CLEAR); UR COLOR YELLOW (YELLOW); UR GLUCOSE (Dip) NEGATIVE (NEGATIVE); UR KETONES (Dip) NEGATIVE (NEGATIVE); UR LEUKOCYTE ESTERASE (Dip) NEGATIVE Leu/ul (NEGATIVE); UR NITRITE (Dip) NEGATIVE (NEGATIVE); UR RBC 2 /HPF (0-5); UR SPECIFIC GRAVITY (Dip) 1.004 (1.003-1.030); UR TOTAL PROTEIN (Dip) NEGATIVE (NEGATIVE); UR UROBILINOGEN (Dip) NEGATIVE (NEGATIVE)
[2017-02-09] MEDS ORDERED: PANTOPRAZOLE 40 MG INJ IV ONE (06:30)
--- NOTE | 2017-02-09 06:58 | ERD ---
ER Documentation Chief Complaint Date/Time DATE: 02/09/17 TIME: 06:52 Chief Complaint abdominal pain x 13 days. s/p abd surgery 13 days ago HPI Patient is a 56-year-old male with history of recurrent alcoholic pancreatitis and gastritis who presents to the ER with gradual onset, constant, severe, dull epigastric and right upper quadrant abdominal pain rating to his right flank for the last 2 weeks since he had a biliary stent placed at [facility]. He reports having intermittent vomiting. He denies hematemesis. He reports that his last alcohol intake was 1 week ago. He reports that he returned to [facility] [place] 1 week ago but was not seen by the equipment cleaner. On discharge 2 weeks ago from [facility], he was advised to arrange for follow-up with GI within 2 weeks, but states that he is not called to make an appointment yet. He reports that he has run out of his pain medication. He reports having bloody stool but no dark stool. ROS All systems reviewed and are negative except as per history of present illness. Medications Home Meds Active Scripts Ondansetron (Zofran Odt) 4 Mg Tab.rapdis, 4 MG PO Q8 Y for NAUSEA, #20 Prov:SAGE VANEGAS MD 02/09/17 Omeprazole* (Omeprazole*) 20 Mg Capsule.dr, 20 MG PO DAILY, #20 Prov:SAGE VANEGAS MD 02/09/17 Mag Hydrox/Al Hydrox/Simeth (Maalox Advanced Suspension) 355 Ml Oral.susp, 2 TSP PO TID for PAIN, #24 OZ Prov:ALIN AGUILAR MD 06/11/16 Tramadol HCl (Tramadol HCl) 50 Mg Tablet, 50 MG PO TID for PAIN LEVEL 6-10, #12 TAB Prov:ALIN AGUILAR MD 06/11/16 Ondansetron (Ondansetron Odt) 4 Mg Tab.rapdis, 4 MG PO TID for VOMITTING, #30 TAB Prov:ALIN AGUILAR MD 06/11/16 Famotidine* (Famotidine*) 40 Mg Tablet, 40 MG PO HS, #30 TAB Prov:ALIN AGUILAR MD 06/11/16 Diphenhydramine Hcl* (Benadryl*) 25 Mg Cap, 25 MG PO Q6H Y for ITCHING, #30 CAP Prov:LEON TERRY 05/29/16 Lorazepam (Lorazepam) 2 Mg/1 Ml Vial, 1 MG IV Q6H Y for ANXIETY, #30 VIAL Prov:LEON TERRY 05/29/16 Hydrocodone Bit-Acetaminophen (Hydrocodone Bit-APAP) 5-325MG Tablet, 1 TAB PO Q4H Y for PAIN LEVEL 4-7, #30 TAB Prov:LEON TERRY 05/29/16 Hirlgy-Mipgazkh-Ycxeqvl* (Creon DR* 24,000) 24,000 L-76,000-120,000 Unit Capsule.dr, 1 CAP PO WITH MEALS for 30 Days, CAP Prov:LEON TERRY 05/29/16 Reported Medications Metoclopramide Hcl* (Metoclopramide Hcl*) 10 Mg Tablet, 10 MG PO TID Y for NAUSEA AND/OR VOMITING, TAB 04/24/16 Pantoprazole* (Protonix*) 40 Mg Tablet.dr, 40 MG PO DAILY, TAB 03/12/15 Allergies Allergies: Coded Allergies: No Known Allergy (Unverified , 02/09/17) PMhx/Soc Past medical history: Alcoholic pancreatitis, gastritis Past surgical history: Biliary stent Social history: Drinks alcohol, denies tobacco or illicit drugs History of Surgery: Yes (pancreas) Anesthesia Reaction: No Hx Neurological Disorder: No Hx Respiratory Disorders: No Hx Cardiac Disorders: No Hx Psychiatric Problems: Yes (PANIC ATTACKS/ANXIETY) Hx Miscellaneous Medical Probl: Yes (back) Hx Alcohol Use: Yes Hx Substance Use: No Hx Tobacco Use: No Smoking Status: Never smoker FmHx Family History: No coronary disease, No diabetes Physical Exam Vitals Vital Signs Date Time Temp Pulse Resp B/P Pulse Ox O2 Delivery O2 Flow Rate FiO2 02/09/17 09:58 89 18 132/78 99 Room Air 02/09/17 06:30 90 20 130/89 99 Room Air 02/09/17 04:36 98.1 116 20 134/75 95 Physical Exam Const: Alert, no objective signs of discomfort. Head: Atraumatic Eyes: Normal Conjunctiva, No pallor, no icterus ENT: Normal External Ears, Nose and Mouth. Mucous membranes moist Neck: Full range of motion..~ No meningismus. Resp: Clear to auscultation bilaterally, No wheezes, no rales Cardio: Mild tachycardia, regular rhythm, no murmurs Abd: Soft, Mild tenderness in epigastrium without rebound or guarding, non distended. Rectal: Patient refused Skin: No petechiae or rashes Back: No midline or flank tenderness Ext: No cyanosis, or edema Neur: Awake and alert, No tremor, no asterixis Psych: Normal Mood and Affect Result Diagram: 02/09/17 0505 02/09/17 0505 Results 24 hrs Laboratory Tests Test 02/09/17 05:05 02/09/17 07:57 White Blood Count 11.010^3/ul Red Blood Count 4.0010^6/ul Hemoglobin 12.4g/dl Hematocrit 36.7% Mean Corpuscular Volume 91.8fl Mean Corpuscular Hemoglobin 31.0pg Mean Corpuscular Hemoglobin Concent 33.8g/dl Red Cell Distribution Width 12.9% Platelet Count 49913^3/UL Mean Platelet Volume 10.5fl Neutrophils % 81.3% Lymphocytes % 8.6% Monocytes % 8.3% Eosinophils % 1.1% Basophils % 0.4% Nucleated Red Blood Cells % 0.0/100WBC Neutrophils # 8.910^3/ul Lymphocytes # 0.910^3/ul Monocytes # 0.910^3/ul Eosinophils # 0.110^3/ul Basophils # 0.010^3/ul Nucleated Red Blood Cells # 0.010^3/ul Urine Color YELLOW Urine Clarity SLIGHTLY CLOUDY Urine pH 5.0 Urine Specific [place] 1.004 Urine Ketones NEGATIVEmg/dL Urine Nitrite NEGATIVEmg/dL Urine Bilirubin NEGATIVEmg/dL Urine Urobilinogen NEGATIVEmg/dL Urine Leukocyte Esterase NEGATIVELeu/ul Urine Microscopic RBC 2/HPF Urine Microscopic WBC 1/HPF Urine Bacteria FEW/HPF Urine Hemoglobin NEGATIVEmg/dL Urine Glucose NEGATIVEmg/dL Urine Total Protein NEGATIVEmg/dl Sodium Level 139mmol/L Potassium Level 4.0mmol/L Chloride Level 98mmol/L Carbon Dioxide Level 29mmol/L Anion Gap 16 Blood Urea Nitrogen 7mg/dl Creatinine 1.04mg/dl Glucose Level 153mg/dl Lactic Acid Level 2.8mmol/L 1.6mmol/L Calcium Level 10.2mg/dl Total Bilirubin 0.2mg/dl Direct Bilirubin 0.00mg/dl Indirect Bilirubin 0.2mg/dl Aspartate Amino Transf (AST/SGOT) 32IU/L Alanine Aminotransferase (ALT/SGPT) 41IU/L Alkaline Phosphatase 130IU/L Troponin I < 0.012ng/ml Total Protein 7.6g/dl Albumin 3.9g/dl Globulin 3.70g/dl Albumin/Globulin Ratio 1.05 Lipase 47U/L Ethyl Alcohol Level < 10.0mg/dl Current Medications Medications (Trade) Dose Ordered Sig/Broderick Route PRN Reason Start Time Stop Time Status Last Admin Dose Admin Sodium Chloride (NS) 1,000 ml @ 1,000 mls/hr Q1H STAT IV 02/09/17 04:56 02/09/17 05:55 DC 02/09/17 05:09 Morphine Sulfate (morphine) 2 mg ONCE STAT IV 02/09/17 04:56 02/09/17 04:59 DC 02/09/17 05:09 Ondansetron HCl (Zofran Inj) 4 mg ONCE STAT IV 02/09/17 04:56 02/09/17 04:59 DC 02/09/17 05:09 Pantoprazole (Protonix Iv) 40 mg ONCE ONCE IV 02/09/17 06:30 02/09/17 06:31 DC 02/09/17 06:39 Morphine Sulfate 4 mg 4 mg ONCE STAT IV 02/09/17 07:46 02/09/17 07:47 DC 02/09/17 08:02 Sodium Chloride (NS) 1,000 ml @ 1,000 mls/hr Q1H ONCE IV 02/09/17 08:00 02/09/17 08:59 DC 02/09/17 07:57 Ondansetron HCl (Zofran Inj) 4 mg ONCE STAT IV 02/09/17 09:14 02/09/17 09:16 DC 02/09/17 09:30 Procedures/MDM EKG read by me: Time 516, rate 109 Rhythm: Sinus tachycardia Sikes: Normal Intervals: Normal ST-T waves: no ischemic changes Ectopy: No Q-waves: No Impression: No evidence of ischemia or arrhythmia Cures report: 90 tablets of 30 mg oxycodone on February 03, 2010 tablets of hydrocodone 10 on February 04. controlled substance prescriptions since late October. Time 755: Case discussed with Dr. Mckenna, who states that patient has a well- placed stent and is known to have drug-seeking behavior. He states that he can follow-up with him on an outpatient basis, but that the patient needs to get authorization from his PMD first. I discussed the patient's CT findings and laboratory results, and he did not believe that the patient needed urgent GI consultation. MDM: Patient is a 56-year-old male who presents to the ER with complaint of 2 weeks of epigastric pain. The patient has history of recurrent alcoholic pancreatitis. He also has a biliary stent and history of gastritis. He has relatively unremarkable labs in the ER, and CT shows findings consistent with pancreatitis. He has relatively benign exam and does not exhibit objective signs of significant pain. He reports being incapacitated by pain, but is conversing without difficulty and able to ambulate without difficulty. He tolerated oral intake and was not observed to vomit during several hours in the ER. He made multiple requests for pain medications by IV. He has had multiple prescriptions for narcotic medications over the last 6 months for the same condition. He states that he is taking more than his prescribed medication. He has not attempted to arrange follow-up with his equipment cleaner or a pain management doctor. He refused rectal examination despite reporting having bloody stools. His hemoglobin is stable from prior hemoglobins. He exhibited several behaviors that were concerning for drug seeking behavior. I discussed the case with his equipment cleaner, who reported the patient has a history of drug-seeking behavior and stated that he would be happy to follow-up with him as an outpatient. I advised the patient that he will need to get authorization from his insurance to follow-up with his equipment cleaner. I advised him that there is no indication at this time for admission. I advised him to drink a clear liquid diet for 24 hours and to advance gradually. Advised him to avoid all alcohol. Will prescribe him omeprazole for possible concurrent gastritis. Advised him on return precautions for new symptoms or intractable vomiting. Departure Diagnosis: Primary Impression: Chronic pancreatitis Pancreatitis type: alcohol induced Qualified Code: K86.0 - Alcohol-induced chronic pancreatitis Additional Impression: Chronic abdominal pain Condition: SAGE Grewal MD Feb 09, 2017 06:58
[2017-02-09] MEDS ORDERED: morphine 4 MG/ML VIAL IV STA (07:46)
[2017-02-09] MEDS ORDERED: SOD CHLORIDE 0.9% 1,000 ML IV ONE (08:00)
[2017-02-09] MEDS ORDERED: OMEP20CA16 PO (09:34)
[2017-02-09] MEDS ORDERED: ONDA4TAB11 PO (09:48)
[2017-02-09 09:58] VITALS: BP 132/78; PULSE 89; RESP 18
== END 2017-02-09 10:03 | disposition home or self-care (01) ==
LOC: E/R 04:32
DX: K86.0 Alcohol-induced chronic pancreatitis (principal)
CPT/HCPCS: 36415; 74176; 80053; 80306; 81001; 83605; 83690; 84484; 85025; 93005; 96374; 96375; 96376; C9113; J2270; J2405; J7030; Z7502; 81003

== ENCOUNTER 2018-01-26 09:33 | Inpatient (IN) | END 2018-01-29 14:15 | disposition home or self-care (01) | DRG 897 ==

== ENCOUNTER 2018-02-03 17:19 | Emergency (ER) | END 2018-02-03 20:13 | disposition home or self-care (01) ==